=== PATIENT | male | born 1940 | race Caucasian/White ===

== ENCOUNTER → 2016-05-25 | Outpatient (CLI) | payer MEDICARE ==
[~2016-05-25] MED LIST: ATOR1TAB21 PO; CARV6.25 PO; CIPR500T19 PO; CITA20TA4 PO; LISI30TA4 PO; MAGN400T5 PO; PERC5TAB6 PO; PLAV75TA38 PO; PLET50TA3 PO
== END ==
LOC: M SMT 15:51
PROVIDERS: ATTEND Urology
DX: C61 Malignant neoplasm of prostate (principal)

== ENCOUNTER → 2016-09-19 | Outpatient (CLI) | payer MEDICARE ==
[~2016-09-19] MED LIST changes: +PERC5TAB12 PO; -PERC5TAB6 PO; +PLAV1TAB2 PO; -PLAV75TA38 PO
[2016-09-19 13:48] LABS: BASO % 0.5 % (0.0-1.0); EOS # 0.2 K/mm3 (0.0-0.50); EOS % 2.5 % (0.0-3.0); LARGE UNSTAINED CELL # 0.2 K/mm3 (0.0-0.4); LARGE UNSTAINED CELL % 1.8 % (0.0-4.0); LYMPH # 2.7 K/mm3 (1.5-4.5); LYMPH % 28.1 % (24.0-44.0); MEAN CORPUSCULAR HEMOGLOBIN 32.4 pg (27.0-33.0); MEAN CORPUSCULAR HGB CONC 34.6 g/dl (32.0-36.5); MEAN CORPUSCULAR VOLUME 93.6 fl (80.0-96.0); MONO # 0.7 K/mm3 (0.0-0.8); MONO % 7.5 % (0.0-5.0); NEUTROPHILS # 5.3 K/mm3 (1.8-7.7); NEUTROPHILS % 59.6 % (36.0-66.0); PLATELET COUNT, AUTOMATED 217 k/mm3 (150-450); RED CELL DISTRIBUTION WIDTH 12.4 % (11.5-14.5); WHITE BLOOD COUNT 8.9 K/mm3 (4.0-10.0)
[2016-09-19 13:56] LABS: INR 0.92
[2016-09-19 14:06] LABS: CALCIUM LEVEL 9.6 MG/DL (8.8-10.2); CREATININE FOR GFR 1.4 MG/DL (0.70-1.30); GLOMERULAR FILTRATION RATE 52.5 (>42)
[2016-09-19 14:08] LABS: POTASSIUM SERUM 5.5 MEQ/L (3.5-5.1)
== END ==
LOC: M SMT 09:41
PROVIDERS: ATTEND Surgery Vascular Surgery
DX: Z01.818 Encounter for other preprocedural examination (principal); I70.213 Atherosclerosis of native arteries of extremities with intermittent claudication, bilateral legs; D69.8 Other specified hemorrhagic conditions

== ENCOUNTER → 2016-09-20 | Outpatient (CLI) | payer MEDICARE | LOC: M SMT 09:22 | PROVIDERS: ATTEND Surgery Vascular Surgery | DX: Z01.818 Encounter for other preprocedural examination (principal); D69.6 Thrombocytopenia, unspecified; E87.5 Hyperkalemia ==

== ENCOUNTER → 2016-11-30 | Outpatient (CLI) | payer MEDICARE ==
[2016-11-30 13:49] LABS: ALBUMIN/GLOBULIN RATIO 1.14 (1.00-1.93); BILIRUBIN,TOTAL 0.6 MG/DL (0.2-1.0); CALCIUM LEVEL 9.3 MG/DL (8.8-10.2); CREATININE FOR GFR 1.36 MG/DL (0.70-1.30); GLOMERULAR FILTRATION RATE 54.2 (>42); MAGNESIUM LEVEL 2.1 MG/DL (1.8-2.4); POTASSIUM SERUM 4.6 MEQ/L (3.5-5.1); TOTAL PROTEIN 7.5 GM/DL (6.4-8.2)
== END ==
LOC: M SMT 08:00
PROVIDERS: ATTEND Internal Medicine Cardiovascular Disease
DX: I50.42 Chronic combined systolic (congestive) and diastolic (congestive) heart failure (principal); I42.0 Dilated cardiomyopathy

== ENCOUNTER → 2016-12-22 | Outpatient (CLI) | payer MEDICARE | LOC: M SMT 10:56 | PROVIDERS: ATTEND Urology | DX: C61 Malignant neoplasm of prostate (principal) ==

== ENCOUNTER → 2017-06-01 | Outpatient (CLI) | payer MEDICARE ==
[2017-06-01 13:05] LABS: HEMATOCRIT 36.8 % (42.0-52.0); HEMOGLOBIN 12.2 g/dl (13.5-17.5); MEAN CORPUSCULAR HEMOGLOBIN 30.7 pg (27.0-33.0); MEAN CORPUSCULAR HGB CONC 33.2 g/dl (32.0-36.5); MEAN CORPUSCULAR VOLUME 92.5 fl (80.0-96.0); PLATELET COUNT, AUTOMATED 205 10^3/uL (150-450); RED BLOOD COUNT 3.98 10^6/uL (4.30-6.10); RED CELL DISTRIBUTION WIDTH 12.5 % (11.5-14.5); WHITE BLOOD COUNT 9.1 10^3/uL (4.0-10.0)
[2017-06-01 13:16] LABS: INR 1.01; PROTHROMBIN TIME 13.4 SECONDS (12.4-14.5)
[2017-06-01 14:04] LABS: ALBUMIN 3.9 GM/DL (3.2-5.2); ALBUMIN/GLOBULIN RATIO 1.18 (1.00-1.93); ALKALINE PHOSPHATASE 54 U/L (45-117); ALT/SGPT 21 U/L (12-78); ANION GAP 9 MEQ/L (8-16); AST/SGOT 15 U/L (7-37); BILIRUBIN,TOTAL 0.6 MG/DL (0.2-1.0); BLOOD UREA NITROGEN 24 MG/DL (7-18); CALCIUM LEVEL 9.4 MG/DL (8.8-10.2); CARBON DIOXIDE LEVEL 30 MEQ/L (21-32); CHLORIDE LEVEL 102 MEQ/L (98-107); CREATININE FOR GFR 1.54 MG/DL (0.70-1.30); GLOMERULAR FILTRATION RATE 46.9 (>42); GLUCOSE, FASTING 131 MG/DL (70-100); POTASSIUM SERUM 4.4 MEQ/L (3.5-5.1); SODIUM LEVEL 141 MEQ/L (136-145); TOTAL PROTEIN 7.2 GM/DL (6.4-8.2)
== END ==
LOC: M SMT 11:31
DX: K63.5 Polyp of colon (principal)
CPT/HCPCS: 80053

== ENCOUNTER → 2017-06-22 | Outpatient (CLI) | payer MEDICARE ==
[2017-06-22 14:06] LABS: PROSTATIC SPECIFIC AG MONITOR < 0.01 NG/ML (< 4.0)
== END ==
LOC: M SMT 09:31
DX: Z85.46 Personal history of malignant neoplasm of prostate (principal)
CPT/HCPCS: 84153

== ENCOUNTER → 2017-06-26 | Outpatient (CLI) | payer MEDICARE ==
[2017-06-26 17:16] LABS: ALBUMIN 3.7 GM/DL (3.2-5.2); ALKALINE PHOSPHATASE 63 U/L (45-117); ALT/SGPT 33 U/L (12-78); ANION GAP 4 MEQ/L (8-16); AST/SGOT 16 U/L (7-37); BILIRUBIN,TOTAL 0.4 MG/DL (0.2-1.0); BLOOD UREA NITROGEN 29 MG/DL (7-18); CALCIUM LEVEL 9.3 MG/DL (8.8-10.2); CARBON DIOXIDE LEVEL 27 MEQ/L (21-32); CHLORIDE LEVEL 110 MEQ/L (98-107); CREATININE FOR GFR 1.52 MG/DL (0.70-1.30); GLOMERULAR FILTRATION RATE 47.6 (>42); GLUCOSE, FASTING 111 MG/DL (70-100); MAGNESIUM LEVEL 2.1 MG/DL (1.8-2.4); NT-PRO BNP 158 PG/ML (<450); POTASSIUM SERUM 4.7 MEQ/L (3.5-5.1); SODIUM LEVEL 141 MEQ/L (136-145); TOTAL PROTEIN 7.4 GM/DL (6.4-8.2)
== END ==
LOC: M SMT 15:24
DX: I50.42 Chronic combined systolic (congestive) and diastolic (congestive) heart failure (principal); I25.10 Atherosclerotic heart disease of native coronary artery without angina pectoris
CPT/HCPCS: 83735

== ENCOUNTER 2017-07-24 11:40 | Inpatient (IN) | payer MEDICARE ==
[2017-07-24] MEDS ORDERED: ONDANSETRON 4MG/2ML VIAL (J2405) IV (12:30)
[2017-07-24] MEDS: NS 1,000 ML IV (12:41)
[2017-07-24 13:01] LABS: BASO % 0.4 % (0.0-1.0); EOS # 0.2 10^3/uL (0.0-0.50); EOS % 3.2 % (0.0-3.0); HEMATOCRIT 31.6 % (42.0-52.0); HEMOGLOBIN 10.6 g/dl (13.5-17.5); IMMATURE GRANULOCYTE % 0.5 % (0-3.0); LYMPH # 2.7 10^3/uL (1.5-4.5); LYMPH % 36.6 % (24.0-44.0); MEAN CORPUSCULAR HEMOGLOBIN 30.9 pg (27.0-33.0); MEAN CORPUSCULAR HGB CONC 33.5 g/dl (32.0-36.5); MEAN CORPUSCULAR VOLUME 92.1 fl (80.0-96.0); MONO # 0.7 10^3/uL (0.0-0.8); MONO % 9.3 % (0.0-5.0); NEUTROPHILS # 3.6 10^3/uL (1.8-7.7); PLATELET COUNT, AUTOMATED 233 10^3/uL (150-450); RED BLOOD COUNT 3.43 10^6/uL (4.30-6.10); RED CELL DISTRIBUTION WIDTH 12.8 % (11.5-14.5); WHITE BLOOD COUNT 7.3 10^3/uL (4.0-10.0)
[2017-07-24 13:19] LABS: INR 1.03; PARTIAL THROMBOPLASTIN TIME 33.1 SECONDS (26.8-37.9); PROTHROMBIN TIME 13.7 SECONDS (12.4-14.5)
[2017-07-24 13:32] LABS: ALBUMIN 3.5 GM/DL (3.2-5.2); ALBUMIN/GLOBULIN RATIO 1.09 (1.00-1.93); ALKALINE PHOSPHATASE 55 U/L (45-117); ALT/SGPT 48 U/L (12-78); ANION GAP 7 MEQ/L (8-16); AST/SGOT 33 U/L (7-37); BILIRUBIN,TOTAL 0.4 MG/DL (0.2-1.0); BLOOD UREA NITROGEN 14 MG/DL (7-18); CALCIUM LEVEL 9.1 MG/DL (8.8-10.2); CARBON DIOXIDE LEVEL 30 MEQ/L (21-32); CHLORIDE LEVEL 104 MEQ/L (98-107); CREATININE FOR GFR 1.16 MG/DL (0.70-1.30); GLOMERULAR FILTRATION RATE > 60.0 (>42); GLUCOSE, FASTING 99 MG/DL (70-100); POTASSIUM SERUM 4.2 MEQ/L (3.5-5.1); SODIUM LEVEL 141 MEQ/L (136-145); TOTAL PROTEIN 6.7 GM/DL (6.4-8.2)
[2017-07-24] MEDS ORDERED: ISOVUE-300 61% 50ML VIAL (Q9967) As Ordered (14:40)
[2017-07-24] MEDS ORDERED: LIDOCAINE 2% MDV 20 ML VIAL As Ordered (14:40)
[2017-07-25 07:43] LABS: HEMATOCRIT 33.7 % (42.0-52.0); HEMOGLOBIN 11.2 g/dl (13.5-17.5); MEAN CORPUSCULAR HEMOGLOBIN 30.9 pg (27.0-33.0); MEAN CORPUSCULAR HGB CONC 33.2 g/dl (32.0-36.5); MEAN CORPUSCULAR VOLUME 92.8 fl (80.0-96.0); PLATELET COUNT, AUTOMATED 243 10^3/uL (150-450); RED BLOOD COUNT 3.63 10^6/uL (4.30-6.10); RED CELL DISTRIBUTION WIDTH 13.1 % (11.5-14.5); WHITE BLOOD COUNT 7.8 10^3/uL (4.0-10.0)
[2017-07-25 08:04] LABS: ANION GAP 5 MEQ/L (8-16); BLOOD UREA NITROGEN 11 MG/DL (7-18); CALCIUM LEVEL 8.9 MG/DL (8.8-10.2); CARBON DIOXIDE LEVEL 29 MEQ/L (21-32); CHLORIDE LEVEL 105 MEQ/L (98-107); GLOMERULAR FILTRATION RATE > 60.0 (>42); GLUCOSE, FASTING 155 MG/DL (70-100); POTASSIUM SERUM 4.1 MEQ/L (3.5-5.1); SODIUM LEVEL 139 MEQ/L (136-145)
[2017-07-25] MEDS: OMEPRAZOLE 20 MG CAP PO (09:10)
[2017-07-25] MEDS: FUROSEMIDE 40 MG TAB PO (09:10)
[2017-07-25] MEDS: CitaloPRAM (CeleXA) 20 MG TAB PO (09:10)
[2017-07-25] MEDS: SUCRALFATE SUSP 1GM/10ML UD PO ×2 (09:10→20:27)
[2017-07-25] MEDS: CARVedilol 6.25 MG TAB PO ×2 (09:11→20:27)
[2017-07-25] MEDS: GLIMEPIRIDE 1 MG TABLET PO (14:23)
[2017-07-25] MEDS: ATORVASTATIN 20 MG TAB PO (20:27)
[2017-07-25] MEDS: ENOXAPARIN 40 MG/0.4 ML SYRINGE (J1650) SC (20:29)
[2017-07-26] MEDS: SUCRALFATE SUSP 1GM/10ML UD PO ×2 (10:52→20:45)
[2017-07-26] MEDS: OMEPRAZOLE 20 MG CAP PO (10:52)
[2017-07-26] MEDS: FUROSEMIDE 40 MG TAB PO ×2 (10:52→13:35)
[2017-07-26] MEDS: CitaloPRAM (CeleXA) 20 MG TAB PO (10:53)
[2017-07-26] MEDS: GLIMEPIRIDE 1 MG TABLET PO (11:02)
[2017-07-26] MEDS: CARVedilol 6.25 MG TAB PO ×2 (13:34→20:46)
[2017-07-26] MEDS: ENOXAPARIN 40 MG/0.4 ML SYRINGE (J1650) SC (20:46)
[2017-07-26] MEDS: ATORVASTATIN 20 MG TAB PO (20:46)
[2017-07-27] MEDS: SUCRALFATE SUSP 1GM/10ML UD PO ×2 (11:13→20:40)
[2017-07-27] MEDS: CARVedilol 6.25 MG TAB PO ×2 (11:14→20:40)
[2017-07-27] MEDS: OMEPRAZOLE 20 MG CAP PO (11:14)
[2017-07-27] MEDS: FUROSEMIDE 40 MG TAB PO (11:15)
[2017-07-27] MEDS: CitaloPRAM (CeleXA) 20 MG TAB PO (11:15)
[2017-07-27] MEDS: GLIMEPIRIDE 1 MG TABLET PO (11:18)
[2017-07-27] MEDS: ENOXAPARIN 40 MG/0.4 ML SYRINGE (J1650) SC (20:40)
[2017-07-27] MEDS: ATORVASTATIN 20 MG TAB PO (20:40)
[2017-07-28] MEDS: OMEPRAZOLE 20 MG CAP PO (09:49)
[2017-07-28] MEDS: CitaloPRAM (CeleXA) 20 MG TAB PO (09:49)
[2017-07-28] MEDS: GLIMEPIRIDE 1 MG TABLET PO (09:49)
[2017-07-28] MEDS: SUCRALFATE SUSP 1GM/10ML UD PO ×2 (09:49→20:35)
[2017-07-28] MEDS: FUROSEMIDE 40 MG TAB PO (09:49)
[2017-07-28] MEDS: CARVedilol 6.25 MG TAB PO ×2 (09:56→20:37)
[2017-07-28 20:29] LABS: MAGNESIUM LEVEL 2.2 MG/DL (1.8-2.4)
[2017-07-28 20:33] LABS: ANION GAP 6 MEQ/L (8-16); BLOOD UREA NITROGEN 16 MG/DL (7-18); CALCIUM LEVEL 8.8 MG/DL (8.8-10.2); CARBON DIOXIDE LEVEL 30 MEQ/L (21-32); CHLORIDE LEVEL 108 MEQ/L (98-107); CREATININE FOR GFR 1.35 MG/DL (0.70-1.30); GLOMERULAR FILTRATION RATE 54.6 (>42); GLUCOSE, FASTING 136 MG/DL (70-100); POTASSIUM SERUM 4.1 MEQ/L (3.5-5.1); SODIUM LEVEL 144 MEQ/L (136-145)
[2017-07-28] MEDS: ATORVASTATIN 20 MG TAB PO (20:35)
[2017-07-28] MEDS: APIXABAN 5 MG TAB (ELIQUIS) PO (21:44)
[2017-07-29] MEDS: SUCRALFATE SUSP 1GM/10ML UD PO (09:05)
[2017-07-29] MEDS: FUROSEMIDE 40 MG TAB PO (09:06)
[2017-07-29] MEDS: CARVedilol 6.25 MG TAB PO (09:06)
[2017-07-29] MEDS: GLIMEPIRIDE 1 MG TABLET PO (09:06)
[2017-07-29] MEDS: OMEPRAZOLE 20 MG CAP PO (09:06)
[2017-07-29] MEDS: APIXABAN 5 MG TAB (ELIQUIS) PO (09:07)
[2017-07-29] MEDS: CitaloPRAM (CeleXA) 20 MG TAB PO (09:07)
== END 2017-07-29 09:56 | disposition home or self-care (01) | DRG 356 ==
LOC: M ICU 11:40 → M MSPAV 21:16
PROC: 06H03DZ Insertion of Intraluminal Device into Inferior Vena Cava, Percutaneous Approach (ICD-10-PCS; principal; 2017-07-24)
DX: K92.1 Melena (principal); I26.99 Other pulmonary embolism without acute cor pulmonale; I50.22 Chronic systolic (congestive) heart failure; I82.449 Acute embolism and thrombosis of unspecified tibial vein; G47.33 Obstructive sleep apnea (adult) (pediatric); F03.90 Unspecified dementia, unspecified severity, without behavioral disturbance, psychotic disturbance, mood disturbance, and anxiety; E11.51 Type 2 diabetes mellitus with diabetic peripheral angiopathy without gangrene; I25.10 Atherosclerotic heart disease of native coronary artery without angina pectoris; R32 Unspecified urinary incontinence; I11.0 Hypertensive heart disease with heart failure; Z85.46 Personal history of malignant neoplasm of prostate; Z95.5 Presence of coronary angioplasty implant and graft; Z95.810 Presence of automatic (implantable) cardiac defibrillator; Z95.820 Peripheral vascular angioplasty status with implants and grafts; Z90.49 Acquired absence of other specified parts of digestive tract; Z87.891 Personal history of nicotine dependence; Z79.01 Long term (current) use of anticoagulants; Z79.899 Other long term (current) drug therapy

== ENCOUNTER → 2017-10-31 | Outpatient (REF) | payer MEDICARE ==
[2017-10-31 14:13] LABS: BASO % 0.4 % (0.0-1.0); EOS # 0.2 10^3/uL (0.0-0.50); EOS % 2.2 % (0.0-3.0); HEMATOCRIT 37.9 % (42.0-52.0); HEMOGLOBIN 11.9 g/dl (13.5-17.5); IMMATURE GRANULOCYTE % 0.3 % (0-3.0); LYMPH # 2.4 10^3/uL (1.5-4.5); LYMPH % 32.6 % (24.0-44.0); MEAN CORPUSCULAR HEMOGLOBIN 29.1 pg (27.0-33.0); MEAN CORPUSCULAR HGB CONC 31.4 g/dl (32.0-36.5); MEAN CORPUSCULAR VOLUME 92.7 fl (80.0-96.0); MONO # 0.6 10^3/uL (0.0-0.8); MONO % 8.5 % (0.0-5.0); NEUTROPHILS # 4.1 10^3/uL (1.8-7.7); PLATELET COUNT, AUTOMATED 173 10^3/uL (150-450); RED BLOOD COUNT 4.09 10^6/uL (4.30-6.10); RED CELL DISTRIBUTION WIDTH 13.4 % (11.5-14.5); WHITE BLOOD COUNT 7.4 10^3/uL (4.0-10.0)
[2017-10-31 14:47] LABS: ERYTHROCYTE SEDIMENTATION RATE 37 mm/hr (0-20)
[2017-10-31 14:50] LABS: ALBUMIN 3.9 GM/DL (3.2-5.2); ALKALINE PHOSPHATASE 62 U/L (45-117); ALT/SGPT 32 U/L (12-78); ANION GAP 7 MEQ/L (8-16); AST/SGOT 20 U/L (7-37); BILIRUBIN,TOTAL 0.6 MG/DL (0.2-1.0); BLOOD UREA NITROGEN 17 MG/DL (7-18); CARBON DIOXIDE LEVEL 29 MEQ/L (21-32); CHLORIDE LEVEL 104 MEQ/L (98-107); CREATININE FOR GFR 1.21 MG/DL (0.70-1.30); FOLATE 15.9 NG/ML; FREE T4 0.74 NG/DL (0.76-1.46); GLOMERULAR FILTRATION RATE > 60.0 (>42); GLUCOSE, FASTING 142 MG/DL (70-100); POTASSIUM SERUM 4.5 MEQ/L (3.5-5.1); RHEUMATOID FACTOR QUANT < 10.0 IU/ML (<15.0); SODIUM LEVEL 140 MEQ/L (136-145); TOTAL PROTEIN 7.8 GM/DL (6.4-8.2)
== END ==
LOC: M LABNEURO 13:05
DX: R41.0 Disorientation, unspecified (principal)
CPT/HCPCS: 82746

== ENCOUNTER → 2017-11-01 | Outpatient (REF) | payer MEDICARE ==
[2017-11-05 00:20] LABS: VITAMIN B6,PYRIDOXAL PHOSPHATE 4.3 ug/L (5.3-46.7)
== END ==
LOC: M LABNEURO 10:51
DX: R41.0 Disorientation, unspecified (principal)
CPT/HCPCS: 84207

== ENCOUNTER → 2017-11-17 | Outpatient (CLI) | payer MEDICARE | LOC: M RAD 15:27 | DX: G30.1 Alzheimer's disease with late onset (principal); F02.80 Dementia in other diseases classified elsewhere, unspecified severity, without behavioral disturbance, psychotic disturbance, mood disturbance, and anxiety; I67.82 Cerebral ischemia | CPT/HCPCS: 70450 ==

== ENCOUNTER → 2017-11-20 | Outpatient (CLI) | payer MEDICARE | LOC: M IRPRO 07:42 | DX: Z53.8 Procedure and treatment not carried out for other reasons (principal) ==

== ENCOUNTER → 2017-11-30 | Outpatient (CLI) | payer MEDICARE ==
[~2017-11-30] MED LIST changes: -ATOR1TAB21 PO; -CARV6.25 PO; -CIPR500T19 PO; -CITA20TA4 PO; +ISOVUE-300 61% 50ML VIAL (Q9967) As Ordered; +LIDOCAINE 2% MDV 20 ML VIAL As Ordered; -LISI30TA4 PO; -MAGN400T5 PO; +MIDAZOLAM INJ 2 MG/2 ML VIAL (J2250) As Ordered; -PERC5TAB12 PO; -PLAV1TAB2 PO; -PLET50TA3 PO; +fentaNYL 100 MCG/2 ML INJECTION (J3010) As Ordered
== END | disposition home or self-care (01) ==
LOC: M IRPRO 06:22
DX: I27.82 Chronic pulmonary embolism (principal); K92.2 Gastrointestinal hemorrhage, unspecified; I82.409 Acute embolism and thrombosis of unspecified deep veins of unspecified lower extremity
CPT/HCPCS: 37193

== ENCOUNTER → 2017-12-15 | Outpatient (CLI) | payer MEDICARE ==
[2017-12-15 14:13] LABS: HEMATOCRIT 37.3 % (42.0-52.0); HEMOGLOBIN 11.9 g/dl (13.5-17.5); MEAN CORPUSCULAR HEMOGLOBIN 29.3 pg (27.0-33.0); MEAN CORPUSCULAR HGB CONC 31.9 g/dl (32.0-36.5); MEAN CORPUSCULAR VOLUME 91.9 fl (80.0-96.0); PLATELET COUNT, AUTOMATED 183 10^3/uL (150-450); RED BLOOD COUNT 4.06 10^6/uL (4.30-6.10); RED CELL DISTRIBUTION WIDTH 14.5 % (11.5-14.5); WHITE BLOOD COUNT 7.5 10^3/uL (4.0-10.0)
[2017-12-15 14:17] LABS: APPEARANCE, URINE HAZY (CLEAR); BACTERIA, URINE AUTO NEGATIVE (NEGATIVE); BILIRUBIN, URINE AUTO NEGATIVE (NEGATIVE); BLOOD, URINE BLOOD NEGATIVE (NEGATIVE); CALCIUM OXALATE CRYSTALS SMALL; COLOR, URINE YELLOW (YELLOW); GLUCOSE, URINE (UA) AUTO NEGATIVE (NEGATIVE); KETONE, URINE AUTO NEGATIVE (NEGATIVE); LEUKOCYTE ESTERASE, URINE AUTO NEGATIVE (NEGATIVE); NITRITE, URINE AUTO NEGATIVE (NEGATIVE); PROTEIN, URINE AUTO NEGATIVE (NEGATIVE); RBC, URINE AUTO 1 /HPF (0-3); SPECIFIC GRAVITY URINE AUTO 1.025 (1.002-1.035); SQUAMOUS EPITHELIAL CELL UR AU 0 /HPF (0-6); UROBILINOGEN, URINE AUTO 0.2 mg/dL (0.0-2.0); WBC, URINE AUTO 1 /HPF (0-3)
[2017-12-15 15:39] LABS: CHOLESTEROL LEVEL 111 MG/DL (<200); CHOLESTEROL RISK RATIO 3.083 (<5); HDL CHOLESTEROL 36 MG/DL (>40); LDL CHOLESTEROL 42 MG/DL (<100); NON-HDL-C 75 MG/DL; PROSTATIC SPECIFIC AG MONITOR < 0.01 NG/ML (< 4.0); TRIGLYCERIDES LEVEL 167 MG/DL (<150)
[2017-12-15 15:43] LABS: ESTIMATED AVERAGE GLUCOSE 157 MG/DL (60-110); HEMOGLOBIN A1c 7.1 %
[2017-12-15 16:54] LABS: ALBUMIN 3.7 GM/DL (3.2-5.2); ALBUMIN/GLOBULIN RATIO 1.06 (1.00-1.93); ALKALINE PHOSPHATASE 66 U/L (45-117); ALT/SGPT 37 U/L (12-78); ANION GAP 7 MEQ/L (8-16); AST/SGOT 21 U/L (7-37); BILIRUBIN,TOTAL 0.5 MG/DL (0.2-1.0); BLOOD UREA NITROGEN 16 MG/DL (7-18); CALCIUM LEVEL 9.1 MG/DL (8.8-10.2); CARBON DIOXIDE LEVEL 29 MEQ/L (21-32); CHLORIDE LEVEL 107 MEQ/L (98-107); CREATININE FOR GFR 1.35 MG/DL (0.70-1.30); GLOMERULAR FILTRATION RATE 54.6 (>42); GLUCOSE, FASTING 154 MG/DL (70-100); MAGNESIUM LEVEL 2.1 MG/DL (1.8-2.4); POTASSIUM SERUM 4.4 MEQ/L (3.5-5.1); SODIUM LEVEL 143 MEQ/L (136-145); TOTAL PROTEIN 7.2 GM/DL (6.4-8.2)
== END ==
LOC: M SMT 10:05
DX: I10 Essential (primary) hypertension (principal); E78.5 Hyperlipidemia, unspecified; E11.9 Type 2 diabetes mellitus without complications; I34.0 Nonrheumatic mitral (valve) insufficiency; K29.61 Other gastritis with bleeding
CPT/HCPCS: 83735

== ENCOUNTER → 2018-06-22 | Outpatient (CLI) | payer MEDICARE ==
[~2018-06-22] MED LIST changes: +ATOR1TAB21 PO; +ATOR40TA75 PO; +CARV6.25 PO; +CIPR500T19 PO; +CITA20TA6 PO; +CITA20TA7 PO; +ELIQ5TAB PO; +GLIM1TAB PO; -ISOVUE-300 61% 50ML VIAL (Q9967) As Ordered; +LASI40TA9 PO; -LIDOCAINE 2% MDV 20 ML VIAL As Ordered; +LISI-672 PO; +LOVE1INJ SC; +MAALSUS2 PO; +MAGN400T5 PO; -MIDAZOLAM INJ 2 MG/2 ML VIAL (J2250) As Ordered; +OMEP40CA2 PO; +PERC5TAB12 PO; +PLAV1TAB2 PO; +PLET50TA3 PO; +SUCR10SS PO; -fentaNYL 100 MCG/2 ML INJECTION (J3010) As Ordered
== END ==
LOC: M SMT 08:36
PROVIDERS: ATTEND Nurse Practitioner Women's Health
DX: Z85.46 Personal history of malignant neoplasm of prostate (principal)

== ENCOUNTER → 2020-04-20 | Outpatient (CLI) | payer MEDICARE ==
[~2020-04-20] MED LIST changes: -GLIM1TAB PO; +GLIM1TAB4 PO; -LISI-672 PO; +LISI30TA4 PO; -OMEP40CA2 PO; +OMEP40CA97 PO; -SUCR10SS PO; +SUCR1ORA2 PO
[2020-04-20 13:53] LABS: HEMATOCRIT 39.8 % (42.0-52.0); HEMOGLOBIN 12.9 g/dl (13.5-17.5); MEAN CORPUSCULAR HEMOGLOBIN 31.1 pg (27.0-33.0); MEAN CORPUSCULAR HGB CONC 32.4 g/dl (32.0-36.5); MEAN CORPUSCULAR VOLUME 95.9 fl (80.0-96.0); PLATELET COUNT, AUTOMATED 164 10^3/uL (150-450); RED BLOOD COUNT 4.15 10^6/uL (4.30-6.10); WHITE BLOOD COUNT 7.8 10^3/uL (4.0-10.0)
[2020-04-20 14:28] LABS: ALBUMIN 3.8 GM/DL (3.2-5.2); CALCIUM LEVEL 8.8 MG/DL (8.8-10.2); CREATININE FOR GFR 1.29 MG/DL (0.70-1.30); GLOMERULAR FILTRATION RATE 57.2 (>42); POTASSIUM SERUM 3.7 MEQ/L (3.5-5.1); TOTAL PROTEIN 7.2 GM/DL (6.4-8.2)
== END ==
LOC: M PLALAB 12:04
PROVIDERS: ATTEND Internal Medicine Cardiovascular Disease
DX: E78.2 Mixed hyperlipidemia (principal); I47.2 Ventricular tachycardia

== ENCOUNTER → 2020-07-10 | Outpatient (REF) | payer MEDICARE | LOC: M PLALAB 16:45 | PROVIDERS: ATTEND Physician Assistant | DX: C61 Malignant neoplasm of prostate (principal) ==

== ENCOUNTER 2020-08-25 12:22 | Inpatient (IN) | payer MEDICARE ==
[~2020-08-25] VITALS: Ht 170.2 cm; Wt 96.7 kg
[~2020-08-25 12:22] MED LIST changes: +OMEP40CA4 PO; -OMEP40CA97 PO
--- NOTE | 2020-08-25 15:46 | REP ---
INDICATION: ams. COMPARISON: Comparison chest x-ray December 22, 2015. TECHNIQUE: Portable upright AP chest radiograph. FINDINGS: A bipolar pacemaker remains in the right heart view of the left side. Heart size is borderline unchanged. Lungs are well inflated and clear. Right hemidiaphragm is somewhat elevated. Pleural angles appear sharp. Pulmonary vasculature is not increased. No infiltrate seen.. IMPRESSION: Pacemaker in place. Mildly prominent heart. Otherwise no active disease.. <Electronically signed by Garland Carcamo > 08/25/20 [id number]
[2020-08-25] MEDS ORDERED: VENL37.598 PO (15:56)
[2020-08-25] MEDS ORDERED: FURO40TA2 PO (15:56)
[2020-08-25] MEDS ORDERED: DONETAB6 PO (15:56)
[2020-08-25] MEDS ORDERED: QUET25TA3 PO (15:56)
[2020-08-25] MEDS ORDERED: MEMA10TA19 PO (15:56)
[2020-08-25 16:16] LABS: BASO % 0.3 % (0.0-1.0); EOS # 0.1 10^3/uL (0.0-0.5); EOS % 1.2 % (0.0-3.0); HEMATOCRIT 42.5 % (42.0-52.0); HEMOGLOBIN 14.2 g/dl (13.5-17.5); LYMPH # 2.9 10^3/uL (1.5-5.0); LYMPH % 29.4 % (24.0-44.0); MEAN CORPUSCULAR HEMOGLOBIN 32.1 pg (27.0-33.0); MEAN CORPUSCULAR HGB CONC 33.4 g/dl (32.0-36.5); MEAN CORPUSCULAR VOLUME 96.2 fl (80.0-96.0); MONO # 0.8 10^3/uL (0.0-0.8); MONO % 7.7 % (2.0-8.0); NEUTROPHILS % 61.1 % (36.0-66.0); PLATELET COUNT, AUTOMATED 165 10^3/uL (150-450); RED BLOOD COUNT 4.42 10^6/uL (4.30-6.10); WHITE BLOOD COUNT 9.9 10^3/uL (4.0-10.0)
[2020-08-25 16:56] LABS: ALBUMIN 4.2 GM/DL (3.2-5.2); ALT/SGPT 42 U/L (12-78); BILIRUBIN,DIRECT 0.4 MG/DL (0.0-0.2); BILIRUBIN,TOTAL 1.8 MG/DL (0.2-1.0); BLOOD UREA NITROGEN 14 MG/DL (7-18); CALCIUM LEVEL 9.4 MG/DL (8.8-10.2); CARBON DIOXIDE LEVEL 30 MEQ/L (21-32); CHLORIDE LEVEL 106 MEQ/L (98-107); CK-MB VALUE MASS 1.2 NG/ML (<3.6); CPK CREATINE PHOSPHOKINASE 110 U/L (39-308); CREATININE FOR GFR 1.15 MG/DL (0.70-1.30); GLOMERULAR FILTRATION RATE > 60.0 (>35); GLUCOSE, FASTING 133 MG/DL (70-100); MB/CK RELATIVE INDEX 1.09 (< OR =4); POTASSIUM SERUM 3.8 MEQ/L (3.5-5.1); SODIUM LEVEL 142 MEQ/L (136-145); THYROID STIMULATING HORMONE 0.616 uIU/ML (0.358-3.740); TROPONIN I < 0.02 NG/ML (< 0.10)
--- NOTE | 2020-08-25 17:22 | ECGEPIP ---
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
[2020-08-25] MEDS ORDERED: CARV12.5 PO (17:37)
[2020-08-25] MEDS ORDERED: OCUVTAB PO (17:37)
[2020-08-25] MEDS ORDERED: DONE10TA90 PO (17:37)
--- NOTE | 2020-08-25 17:58 | REPVR ---
PROCEDURE INFORMATION: Exam: CT Head Without Contrast Exam date and time: 08/25/2020 5:20 PM Age: 80 years old Clinical indication: Altered mental status/memory loss; Additional info: AMS TECHNIQUE: Imaging protocol: Computed tomography of the head without contrast. Radiation optimization: All CT scans at this facility use at least one of these dose optimization techniques: automated exposure control; mA and/or kV adjustment per patient size (includes targeted exams where dose is matched to clinical indication); or iterative reconstruction. COMPARISON: CT Head without contrast 11/17/2017 3:37 PM FINDINGS: Brain: There is no acute cortical infarction, intracranial hemorrhage or mass.There is moderate diffuse heterogeneity of the white matter, most consistent with microangiopathy. Cerebral ventricles: The ventricles appear enlarged, but not out of proportion to the degree of parenchymal volume loss. Paranasal sinuses: There is no significant mucoperiosteal thickening or air-fluid levels in the visualized portion of the paranasal sinuses. Mastoid air cells: The middle ear cavities and mastoid air cells are clear. Vasculature: Atherosclerosis. Bones/joints: Unremarkable. No acute fracture. Soft tissues: Unremarkable. IMPRESSION: No acute intracranial findings. Electronically signed by: Lala Glaser On 08/25/2020 17:58:01 PM
[2020-08-25] MEDS ORDERED: CARVedilol 12.5 MG TAB PO ONE (18:10)
[2020-08-25] MEDS ORDERED: FUROSEMIDE 40 MG TAB PO ONE (18:10)
[2020-08-25] MEDS ORDERED: ACETAMINOPHEN TAB 650MG DOSE (2X325MG) PO PRN (18:50)
[2020-08-25] MEDS ORDERED: MAALOX 30 ML SUSP *UDC PO PRN (18:50)
[2020-08-25] MEDS ORDERED: hydrALAZINE 20MG/ML 1ML VIAL (J0360 PER 20MG) IV PRN (18:50)
[2020-08-25] MEDS ORDERED: GLUCAGON INJ 1MG VIAL SC PRN (18:50)
[2020-08-25] MEDS ORDERED: DEXTROSE 50% 50 ML SYRINGE IV PRN (18:50)
[2020-08-25] MEDS ORDERED: GLUCOSE 4GM CHEW TABLET PO PRN (18:50)
[2020-08-25] MEDS ORDERED: MOM 30ML SUSPENSION UDC PO PRN (18:50)
[2020-08-25 18:58] LABS: RSV AMPLIFICATION NEGATIVE (NEGATIVE)
--- NOTE | 2020-08-25 19:09 | HPEPDOC ---
[facility] Medical History & Physical Date of Admission Aug 25, 2020 Date of Service: Aug 25, 2020 Primary Care Physician: Paramjit Attending Physician: ADDI WITT MD History and Physical CHIEF COMPLAINT: Altered mental status HISTORY OF PRESENT ILLNESS: . Mr. Ricks is an 80-year-old male with a history of dementia who was brought to the ER by his with complaints of 5 days of worsening confusion. According to the ER report, the patient has been much more confused than his baseline. At the time of my evaluation, the patient is oriented to person and place. He cannot tell me the year or even why he is in the ER. Details of history are obtained from a thorough review of the medical record and from his by phone.. She tells me that the patient is normally confused. He is agitated at home and thinks that she is yelling at him or doing mean things to him. He does not believe that their home is where he lives. She has to limit their time away from home because the patient is often inappropriate in public. He does not seem to understand personal space and will often touch strangers. Over the last 5 days his normal symptoms have worsened. She has not been able to redirect him and he has been verbally abusive. He has not driven in over 3 years, but decided to take the car out for a ride today. It was at that point that she called the police and they brought him home. She said he was very polite to the police and has been cooperative at the hospital, but that this is not the way he is at home. She called their primary care provider, Dr. Worthy, who recommended that the patient be brought to [facility] for a psychiatric evaluation. The patient and his deny any fever, chills, nausea, vomiting or diarrhea. CT scan of the head was negative for any acute pathology. Chest x-ray showed some enlargement of the heart and confirmed pacemaker placement. Labs were unremarkable except for elevation of bilirubin at 1.8. There is no documented history of any type of liver disease. The rest of his LFTs are within normal limits. Patient's states that he was "a very bad alcoholic" and quit drinki ng when he was about 45 years old. Patient is a former smoker. He has a history of hypertension and blood pressure is elevated at 192/83. Pulse is 63. He is satting 97% on room air and is afebrile. PAST MEDICAL HISTORY: 1. Coronary artery disease. 2. Diabetes , type II [id number] 3. Prostate cancer. 4. Gastroesophageal reflux disease. 5. DVT 6. Bilateral pulmonary emboli. 7. GI bleed. 8. Peripheral vascular disease. 9. Congestive heart failure, systolic with ejection fraction 40-45%. 10. Obstructive sleep apnea, noncompliant with CPAP 11. Urinary incontinence. 12. Hyperlipidemia. 13. Hypertension PAST SURGICAL HISTORY: 1. Robot-assisted radical prostatectomy. 2. Coronary artery angioplasty and stenting. 3. Bilateral lower extremity angioplasty with stents. 4. Right hemicolectomy. 5. Cholecystectomy. 6. Bilateral cataract removal. 7. IVC filter placement SOCIAL HISTORY: Tobacco use: Former ETOH: Former Illicit drug use: Denies Patient lives with: Lives with his FAMILY HISTORY: Patient's father at 64 with a history of coronary artery disease. His mother was 53 and had a history of COPD. REVIEW OF SYSTEMS: Complete 10 point review systems is negative except as noted above PHYSICAL EXAMINATION: Patient is seen in the ER, lying on the stretcher.. He is alert and oriented to person and place but cannot tell me why he is here, the date or time. HEENT is WNL. Neck is supple. Lungs with expiratory wheeze that clears with cough. Heart regular rate and rhythm without murmur. Abdomen is soft, non-tender to palpation with bowel sounds positive. Extremities with good ROM and strength equal bilaterally. No lower extremity edema. Pedal pulses are positive. Skin is warm and dry with no obvious rash or lesion. Neuro: As described. Psych: He is very pleasant and attempts to be cooperative ASSESSMENT AND PLAN: 1. Altered mental status, etiology unclear, possibly secondary to worsening miladis ntia. Patient follows with Neurology. Would benefit from a consult with neurology and psychiatry in the morning. In the meantime, we'll ask case management to evaluate for possible placement versus increased assistance at home. Continue current medications including Seroquel, Effexor, Namenda and A ricept. 2. Hypertension with urgency. Continue home carvedilol and will add hydralazine for use as needed. Monitor with routine vital signs and adjust medications as needed based on trends. 3. Diabetes type 2, [id number]. Continue home glipizide. Monitor blood glucose before meals and at bedtime and add sliding scale for use as needed. Consistent carbohydrate diet. Check HbA1c in the morning. 4. Coronary artery disease. Continue statin and beta galina. Patient is not on daily aspirin. 5. Congestive heart failure, systolic, with no acute exacerbation. Continue home Lasix. Monitor closely to avoid fluid overload. 6. Elevated bilirubin, etiology unclear. Recheck labs in the morning. Will also check ammonia level for completeness sake. 7. DVT prophylaxis. Add Lovenox. CODE STATUS: CODE STATUS was discussed with the patient's who acts as his surrogate as he is unable to make his decisions. She desires that he be considered DNR. Patient is considered high risk of further deterioration including possible injury to self. He is admitted for close observation and further evaluation and expected to remain at least one midnight. Vital Signs Vital Signs Date Time Temp Pulse Resp B/P (MAP) Pulse Ox O2 Delivery O2 Flow Rate FiO2 08/25/20 18:35 72 186/107 08/25/20 17:45 17 97 Room Air 08/25/20 16:38 98.2 Laboratory Data Labs 24H Laboratory Tests 2 08/25/20 15:38: Immature Granulocyte % (Auto) 0.3, Neutrophils (%) (Auto) 61.1, Lymphocytes (%) (Auto) 29.4, Monocytes (%) (Auto) 7.7, Eosinophils (%) (Auto) 1.2, Basophils (%) (Auto) 0.3, Neutrophils # (Auto) 6.0, Lymphocytes # (Auto) 2.9, Monocytes # (Auto) 0.8, Eosinophils # (Auto) 0.1, Basophils # (Auto) 0.0, Nucleated Red Blood Cells % (auto) 0.0, Urine Color RIC, Urine Appearance HAZY, Urine pH 5.0, Urine Specific [place] 1.028, Urine Protein 1+H, Urine Glucose (UA) NEGATIVE, Urine Ketones NEGATIVE, Urine Blood NEGATIVE, Urine Nitrite NEGATIVE, Urine Bilirubin NEGATIVE, Urine Urobilinogen 0.2, Urine Leukocyte Esterase NEGATIVE, Urine WBC (Auto) 1, Urine RBC (Auto) 1, Urine Hyaline Casts (Auto) 0, Urine Bacteria (Auto) NEGATIVE, Urine Squamous Epithelial Cells 0, Urine Mucus (Auto) SMALL, Urine Sperm (Auto) , Anion Gap 6L, Glomerular Filtration Rate > 60.0, Calcium Level 9.4, Total Bilirubin 1.8H, Direct Bilirubin 0.4H, Aspartate Amino Transf (AST/SGOT) 36, Alanine Aminotransferase (ALT/SGPT) 42, Alkaline Phosphatase 62, Total Creatine Kinase 110, Creatine Kinase MB 1.2, Creatine Kinase MB Relative Index 1.09, Troponin I < 0.02, Total Protein 8.0, Albumin 4.2, Albumin/Globulin Ratio 1.1, Thyroid Stimulating Hormone (TSH) 0.616 08/25/20 15:50: Bedside Glucose (Misc Panel) 144H 08/25/20 17:45: CBC/BMP Laboratory Tests 08/25/20 15:38 Home Medications Scheduled Atorvastatin Calcium (Atorvastatin Calcium) 40 Mg Tab, 40 MG PO QHS Carvedilol (Carvedilol) 12.5 Mg Tablet, 12.5 MG PO BID Donepezil HCl (Donepezil HCl) 10 Mg Tablet, 10 MG PO QHS Furosemide (Furosemide) 40 Mg Tablet, 40 MG PO DAILY Glimepiride (Glimepiride) 1 Mg Tab, 1 MG PO DAILY Memantine HCl (Memantine HCl) 10 Mg Tablet, 10 MG PO BID Quetiapine Fumarate (Quetiapine Fumarate) 25 Mg Tablet, 75 MG PO BID Venlafaxine HCl (Venlafaxine HCl ER) 37.5 Mg Cap.er.24h, 37.5 MG PO DAILY Vits A,C,E/Lutein/Minerals (Ocuvite with Lutein Tablet) 1 Each Tablet, 1 TAB PO DAILY Allergies Coded Allergies: No Known Allergies (Verified , 08/19/02) A-FIB/CHADSVASC A-FIB History Current/History of A-Fib/PAF?: No APURVA CERVANTES Aug 25, 2020 19:09
[2020-08-25 20:44] LABS: MAGNESIUM LEVEL 2.4 MG/DL (1.8-2.4)
[2020-08-25] MEDS: HumaLOG INSULIN (NovoLOG) PER UNIT SC SCH (21:00)
--- NOTE | 2020-08-26 00:34 | IPNPDOC ---
Text Note Date of Service The patient was seen on 08/26/20. NOTE #Sustained V. tach Per discussion with the nursing staff the patient had a 31-second run of V. tach; we were unable to interrogate his ICD/pacemaker. Based on consultation notes from 2018 the patient has HFrEF (40%) Plan: Check magnesium / Amiodarone 150mg over 10 min / we will ask the daytime team to consult Cardiology and or request records from 's office prior to ordering an Echo VS,Walie, I+O VS, Walie, I+O Laboratory Tests 08/25/20 15:38 Vital Signs Date Time Temp Pulse Resp B/P (MAP) Pulse Ox O2 Delivery O2 Flow Rate FiO2 08/25/20 18:35 72 186/107 08/25/20 17:45 17 97 Room Air 08/25/20 16:38 98.2 ADDI WITT MD Aug 26, 2020 00:34
[2020-08-26] MEDS: QUEtiapine FUMARATE 25 MG TAB PO SCH ×2 (00:52→09:12)
[2020-08-26] MEDS: ATORVASTATIN 20 MG TAB PO SCH ×2 (00:52→21:57)
[2020-08-26] MEDS: CARVedilol 12.5 MG TAB PO SCH ×3 (00:53→21:57)
[2020-08-26] MEDS ORDERED: AMIODARONE HCL 150 MG in IV 1 EA IV SCH (01:00)
[2020-08-26] MEDS: MEMANTINE 5MG TABLET (NAMENDA) PO SCH ×3 (01:26→21:58)
[2020-08-26] MEDS: DONEPEZIL 5 MG TAB PO SCH ×2 (01:27→21:57)
[2020-08-26 06:26] LABS: HEMATOCRIT 39.8 % (42.0-52.0); HEMOGLOBIN 13.2 g/dl (13.5-17.5); MEAN CORPUSCULAR HEMOGLOBIN 31.5 pg (27.0-33.0); MEAN CORPUSCULAR HGB CONC 33.2 g/dl (32.0-36.5); PLATELET COUNT, AUTOMATED 138 10^3/uL (150-450); RED BLOOD COUNT 4.19 10^6/uL (4.30-6.10); WHITE BLOOD COUNT 10.5 10^3/uL (4.0-10.0)
[2020-08-26 06:48] VITALS: BP 149/92
[2020-08-26 07:05] LABS: ALBUMIN 3.9 GM/DL (3.2-5.2); BILIRUBIN,TOTAL 1.7 MG/DL (0.2-1.0); CALCIUM LEVEL 9.1 MG/DL (8.8-10.2); CREATININE FOR GFR 1.28 MG/DL (0.70-1.30); GLOMERULAR FILTRATION RATE 57.6 (>35); MAGNESIUM LEVEL 2.2 MG/DL (1.8-2.4); POTASSIUM SERUM 3.5 MEQ/L (3.5-5.1); TOTAL PROTEIN 7.1 GM/DL (6.4-8.2)
[2020-08-26] MEDS ORDERED: GLIMEPIRIDE 1 MG TABLET PO SCH (08:00)
[2020-08-26] MEDS: ENOXAPARIN 40MG/0.4ML SYRINGE (J1650 PER 10MG) SC SCH (09:10)
[2020-08-26] MEDS: HumaLOG INSULIN (NovoLOG) PER UNIT SC SCH ×4 (09:10→21:00)
[2020-08-26] MEDS: FUROSEMIDE 40 MG TAB PO SCH (09:12)
[2020-08-26] MEDS: VENLAFAXINE **XR** 37.5 MG CAPSULE PO SCH (09:12)
--- NOTE | 2020-08-26 12:33 | IPNPDOC ---
Text Note Date of Service The patient was seen on 08/26/20. NOTE Subjective: Patient is an 80-year-old male with a PMHx of Dementia, CAD, Systolic CHF (EF: 45%), HTN, PVD, FATUMA on CPAP, Hx of Bilateral PE, NIDDM2, DLP, Prostate CA, Hx of GI bleed, GERD who is brought to the ER for a 5 day history of worsening confusion. Patient is oriented to person and place but not time. Patient appears to be having confusion at home. Has started driving after not driving for 3 years. Was brought back home by police was cooperative with them and with hospital staff, however, family reports that this is not helping to his home. Patient was seen and examined at the bedside. Patient denies any chest pain, shortness breath, palpitations, nausea, vomiting, abdominal pain or diarrhea. He is oriented to person and place but not to time. Objective: Vitals (See below) General: Lying in bed, no acute distress, comfortable, AAOx2 (not to time) HEENT: NC, AT CVS: RRR, +S1S2 Lungs: Fair air entry b/l, -w/r/r Abdomen: Soft, ND, NT Extremities: - Edema, - Calf tenderness Imaging: CXR 08/25: Pacemaker in place. Mildly prominent heart. Otherwise no active disease.. CT head 08/25: No acute intracranial findings. Assessment and plan: Confusion - likely 2/2 progression of dementia - Hemodynamically stable and afebrile - UA without any signs of infection - Imaging noted above - Patient may require placement to long-term care facility where he can receive a help/care that he needs - Patient follows with neurology as an outpatient - c/w Quetiapine, Venlafaxine, Memantine, Donepezil Reported V. tach - Blood pressure / home medications resumed - EKG reviewed - currently ventricularly paced - Electrolytes noted - s/p Amiodarone 1 dose - Will start telemetry and monitor for 24-48 hours - Follows with Dr. Golden (Cardiology) as an outpatient; will have outpatient follow up HTN - BP well controlled - c/w Carvedilol and Furosemide NIDDM2 - Will DC Glimepiride - c/w ISS CAD - c/w Atorvastatin and Carvedilol Chronic Systolic CHF - No signs of fluid overload - c/w Furosemide Elevated bilirubin - Has been trending down - No abdominal pain DVT prophylaxis - c/w Lovenox Code status: - DNR / DNI VS,Fishbone, I+O VS, Fishbone, I+O Laboratory Tests 08/25/20 15:38 08/26/20 05:50 Vital Signs Date Time Temp Pulse Resp B/P (MAP) Pulse Ox O2 Delivery O2 Flow Rate FiO2 08/26/20 09:14 58 134/82 08/26/20 06:48 97.5 18 97 08/26/20 01:45 Room Air TR MONTOYA MD Aug 26, 2020 12:33
[2020-08-26 14:00] VITALS: BP 137/61
[2020-08-26] MEDS ORDERED: PILL CUTTER 1 EACH XX PRN (16:25)
[2020-08-26] MEDS ORDERED: QUEtiapine FUMARATE 50MG TAB PO SCH (21:00)
[2020-08-26] MEDS: risperiDONE 0.5 MG TAB PO SCH (21:58)
[2020-08-26 22:00] VITALS: BP 161/69
[2020-08-27 06:00] VITALS: BP 162/71
[2020-08-27 06:51] LABS: BASO # 0.1 10^3/uL (0.0-0.2); BASO % 0.7 % (0.0-1.0); EOS # 0.1 10^3/uL (0.0-0.5); EOS % 1.7 % (0.0-3.0); HEMATOCRIT 36.9 % (42.0-52.0); HEMOGLOBIN 12.5 g/dl (13.5-17.5); LYMPH # 2.8 10^3/uL (1.5-5.0); LYMPH % 37.2 % (24.0-44.0); MEAN CORPUSCULAR HEMOGLOBIN 31.4 pg (27.0-33.0); MEAN CORPUSCULAR HGB CONC 33.9 g/dl (32.0-36.5); MEAN CORPUSCULAR VOLUME 92.7 fl (80.0-96.0); MONO # 0.8 10^3/uL (0.0-0.8); MONO % 10.1 % (2.0-8.0); NEUTROPHILS # 3.8 10^3/uL (1.5-8.5); PLATELET COUNT, AUTOMATED 126 10^3/uL (150-450); RED BLOOD COUNT 3.98 10^6/uL (4.30-6.10); WHITE BLOOD COUNT 7.6 10^3/uL (4.0-10.0)
[2020-08-27 07:13] LABS: ALBUMIN 3.6 GM/DL (3.2-5.2); BILIRUBIN,DIRECT 0.3 MG/DL (0.0-0.2); BILIRUBIN,TOTAL 1.5 MG/DL (0.2-1.0); CALCIUM LEVEL 8.5 MG/DL (8.8-10.2); CREATININE FOR GFR 1.28 MG/DL (0.70-1.30); GLOMERULAR FILTRATION RATE 57.6 (>35); MAGNESIUM LEVEL 2.1 MG/DL (1.8-2.4); POTASSIUM SERUM 3.2 MEQ/L (3.5-5.1); TOTAL PROTEIN 6.6 GM/DL (6.4-8.2)
[2020-08-27] MEDS ORDERED: POTASSIUM CHLORIDE 10 MEQ SR TABLET PO ONE (07:40)
[2020-08-27] MEDS: HumaLOG INSULIN (NovoLOG) PER UNIT SC SCH (08:23)
[2020-08-27] MEDS: VENLAFAXINE **XR** 37.5 MG CAPSULE PO SCH (08:24)
[2020-08-27] MEDS: risperiDONE 0.5 MG TAB PO SCH (08:24)
[2020-08-27] MEDS: MEMANTINE 5MG TABLET (NAMENDA) PO SCH (08:24)
[2020-08-27 08:25] VITALS: BP 118/60
[2020-08-27] MEDS: CARVedilol 12.5 MG TAB PO SCH (08:25)
[2020-08-27] MEDS: ENOXAPARIN 40MG/0.4ML SYRINGE (J1650 PER 10MG) SC SCH (08:25)
[2020-08-27] MEDS ORDERED: RISP-7 PO (09:38)
[2020-08-27] MEDS ORDERED: risperiDONE 0.5 MG TAB PO ONE (09:40)
[2020-08-27] MEDS: FUROSEMIDE 40 MG TAB PO SCH (09:58)
--- NOTE | 2020-08-27 10:40 | DS.PDOC ---
Discharge Summary General Date of Admission Aug 26, 2020 at 12:33 Date of Discharge 08/27/2020 Discharge Summary PROCEDURES PERFORMED DURING STAY: [None]. ADMITTING DIAGNOSES / DISCHARGE DIAGNOSES: Confusion - likely 2/2 progression of dementia Reported V. tach HTN NIDDM2 CAD Chronic Systolic CHF Elevated bilirubin DVT prophylaxis COMPLICATIONS/CHIEF COMPLAINT: Worsening dementia HISTORY OF PRESENT ILLNESS: Patient is an 80-year-old male with a PMHx of Dementia, CAD, Systolic CHF (EF: 45%), HTN, PVD, FATUMA on CPAP, Hx of Bilateral PE, NIDDM2, DLP, Prostate CA, Hx of GI bleed, GERD who is brought to the ER for a 5 day history of worsening confusion. Patient is oriented to person and place but not time. Patient appears to be having confusion at home. Has started driving after not driving for 3 years. Was brought back home by police was cooperative with them and with hospital staff, however, family reports that this is not helping to his home. Patient was seen and examined at the bedside. Patient sitting in the hallway doing puzzles and coloring books with nursing staff does not appear to be in any discomfort, is cooperative. Denies any pain. HOSPITAL COURSE: Confusion - likely 2/2 progression of dementia - Remains hemodynamically stable and afebrile - UA without any signs of infection - Imaging noted above - c/w Venlafaxine, Memantine, Donepezil - s/p Quetiapine; Started on Risperidone - QTC improved compared to admission (not prolonged) - Will have outpatient follow-up with primary care provider, and neurology within the next 7 days Reported V. tach - Blood pressure / home medications resumed - EKG reviewed - currently ventricularly paced - Electrolytes noted - s/p Amiodarone 1 dose - No events noted on telemetry over last 24 hours - Follows with Dr. Golden (Cardiology) as an outpatient; will have outpatient follow up HTN - BP well controlled - c/w Carvedilol and Furosemide NIDDM2 - s/p Glimepiride - c/w ISS CAD - c/w Atorvastatin and Carvedilol Chronic Systolic CHF - No signs of fluid overload - c/w Furosemide Elevated bilirubin - Has been trending down - No abdominal pain DVT prophylaxis - c/w Lovenox DISCHARGE MEDICATIONS: Please see below. ALLERGIES: Please see below. PHYSICAL EXAMINATION ON DISCHARGE: Vitals (See below) General: Lying in bed, appears comfortable, patient is awake, alert, cooperative, oriented to person, place HEENT: NC, AT CVS: +S1S2 Lungs: Fair air entry b/l, no wheezing, resonant rhonchi Abdomen: Soft, nondistended, nontender Extremities: Lower extremities are without any edema, - Calf tenderness LABORATORY DATA: Please see below. IMAGING: CXR 08/25: Pacemaker in place. Mildly prominent heart. Otherwise no active disease.. CT head 08/25: No acute intracranial findings. ACTIVITY: [As tolerated]. DISCHARGE PLAN: Follow-up with primary care provider and neurology within the next 7 days Remain compliant with treatment plan and medications Return to the ER if you experience any problems DISPOSITION: Home with services DISCHARGE CONDITION: [Stable]. TIME SPENT ON DISCHARGE: 35 minutes. Vital Signs/I&Os Vital Signs Date Time Temp Pulse Resp B/P (MAP) Pulse Ox O2 Delivery O2 Flow Rate FiO2 08/27/20 08:25 50 118/60 08/27/20 06:00 97.4 18 94 Room Air I&O- Last 24 Hours up to 6 AM 08/27/20 06:00 Intake Total 2635 ml Output Total 400 ml Balance 2235 ml Laboratory Data Labs 24H Laboratory Tests 2 08/26/20 11:46: Bedside Glucose (Misc Panel) 137H 08/26/20 17:01: Bedside Glucose (Misc Panel) 211H 08/26/20 21:50: Bedside Glucose (Misc Panel) 131H 08/27/20 06:20: Immature Granulocyte % (Auto) 0.3, Neutrophils (%) (Auto) 50.0, Lymphocytes (%) (Auto) 37.2, Monocytes (%) (Auto) 10.1H, Eosinophils (%) (Auto) 1.7, Basophils (%) (Auto) 0.7, Neutrophils # (Auto) 3.8, Lymphocytes # (Auto) 2.8, Monocytes # (Auto) 0.8, Eosinophils # (Auto) 0.1, Basophils # (Auto) 0.1, Nucleated Red Blood Cells % (auto) 0.0, Anion Gap 5L, Glomerular Filtration Rate 57.6, Calcium Level 8.5L, Magnesium Level 2.1, Total Bilirubin 1.5H, Direct Bilirubin 0.3H, Aspartate Amino Transf (AST/SGOT) 29, Alanine Aminotransferase (ALT/SGPT) 32, A lkaline Phosphatase 52, Total Protein 6.6, Albumin 3.6, Albumin/Globulin Ratio 1.2 CBC/BMP Laboratory Tests 08/27/20 06:20 FSBS Laboratory Tests Test 08/26/20 11:46 08/26/20 17:01 08/26/20 21:50 Range/Units Bedside Glucose (Misc Panel) 137 211 131 83-110 MG/DL Discharge Medications Scheduled Atorvastatin Calcium (Atorvastatin Calcium) 40 Mg Tab, 40 MG PO QHS, (Reported) Carvedilol (Carvedilol) 12.5 Mg Tablet, 12.5 MG PO BID, (Reported) Donepezil HCl (Donepezil HCl) 10 Mg Tablet, 10 MG PO QHS, (Reported) Furosemide (Furosemide) 40 Mg Tablet, 40 MG PO DAILY, (Reported) Glimepiride (Glimepiride) 1 Mg Tab, 1 MG PO DAILY, (Reported) Memantine HCl (Memantine HCl) 10 Mg Tablet, 10 MG PO BID, (Reported) Risperidone (Risperidone) 0.5 Mg Tablet, 0.5 MG PO BID Venlafaxine HCl (Venlafaxine HCl ER) 37.5 Mg Cap.er.24h, 37.5 MG PO DAILY, (Reported) Vits A,C,E/Lutein/Minerals (Ocuvite with Lutein Tablet) 1 Each Tablet, 1 TAB PO DAILY, (Reported) Allergies Coded Allergies: No Known Allergies (Verified , 08/19/02) TR MONTOYA MD Aug 27, 2020 10:40
[2020-08-27] MEDS ORDERED: risperiDONE 0.5 MG TAB PO SCH (21:00)
--- NOTE | 2020-08-28 22:30 | ECGEPIP ---
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
== END 2020-08-27 13:06 | disposition home health service (06) | DRG 884 ==
LOC: M ED 12:22 → M ED INP 12:23 → ENRESERV 08-26 05:44 → M MSPAV 08-26 06:46 → OBSVTOIN 08-26 12:33
PROVIDERS: ADMIT Internal Medicine; ATTEND Internal Medicine
DX: F03.91 Unspecified dementia, unspecified severity, with behavioral disturbance (principal); I50.22 Chronic systolic (congestive) heart failure; I47.2 Ventricular tachycardia; R17 Unspecified jaundice; I25.10 Atherosclerotic heart disease of native coronary artery without angina pectoris; E11.51 Type 2 diabetes mellitus with diabetic peripheral angiopathy without gangrene; K21.9 Gastro-esophageal reflux disease without esophagitis; G47.33 Obstructive sleep apnea (adult) (pediatric); R32 Unspecified urinary incontinence; E78.5 Hyperlipidemia, unspecified; I11.0 Hypertensive heart disease with heart failure; I16.0 Hypertensive urgency; Z66 Do not resuscitate; Z85.46 Personal history of malignant neoplasm of prostate; Z95.5 Presence of coronary angioplasty implant and graft; Z95.820 Peripheral vascular angioplasty status with implants and grafts; Z98.41 Cataract extraction status, right eye; Z90.49 Acquired absence of other specified parts of digestive tract; Z98.42 Cataract extraction status, left eye; Z95.828 Presence of other vascular implants and grafts; Z86.711 Personal history of pulmonary embolism; Z86.718 Personal history of other venous thrombosis and embolism; Z79.84 Long term (current) use of oral hypoglycemic drugs; Z79.899 Other long term (current) drug therapy

== ENCOUNTER → 2021-07-14 | Outpatient (CLI) | payer MEDICARE ==
[~2021-07-14] MED LIST changes: +CARV12.5 PO; +DONE-1 PO; +DONE10TA90 PO; +FURO40TA2 PO; +MEMA10TA19 PO; +OCUVTAB PO; +QUET1TAB17 PO; +RISP-7 PO; +VENL37.598 PO
== END ==
LOC: M PLALAB 14:15
PROVIDERS: ATTEND Physician Assistant
DX: C61 Malignant neoplasm of prostate (principal)

== ENCOUNTER → 2022-04-19 | Outpatient (REF) | payer MEDICARE ==
[~2022-04-19] MED LIST changes: +CLOP75TA99 PO; -PLAV1TAB2 PO
[2022-04-19 12:04] LABS: APPEARANCE, URINE CLEAR (CLEAR); BACTERIA, URINE AUTO NEGATIVE (NEGATIVE); BILIRUBIN, URINE AUTO NEGATIVE (NEGATIVE); BLOOD, URINE BLOOD NEGATIVE (NEGATIVE); COLOR, URINE YELLOW (YELLOW); GLUCOSE, URINE (UA) AUTO NEGATIVE (NEGATIVE); KETONE, URINE AUTO TRACE mg/dL (NEGATIVE); LEUKOCYTE ESTERASE, URINE AUTO NEGATIVE (NEGATIVE); MUCUS, URINE SMALL (NEGATIVE); NITRITE, URINE AUTO NEGATIVE (NEGATIVE); PROTEIN, URINE AUTO NEGATIVE (NEGATIVE); RBC, URINE AUTO 0 /HPF (0-3); SPECIFIC GRAVITY URINE AUTO 1.021 (1.002-1.035); SQUAMOUS EPITHELIAL CELL UR AU 0 /HPF (0-6); UROBILINOGEN, URINE AUTO 0.2 mg/dL (0.0-2.0); WBC, URINE AUTO 1 /HPF (0-3)
[2022-04-19 12:05] LABS: HEMATOCRIT 41.4 % (42.0-52.0); HEMOGLOBIN 13.7 g/dl (13.5-17.5); MEAN CORPUSCULAR HEMOGLOBIN 31.9 pg (27.0-33.0); MEAN CORPUSCULAR HGB CONC 33.1 g/dl (32.0-36.5); MEAN CORPUSCULAR VOLUME 96.5 fl (80.0-96.0); PLATELET COUNT, AUTOMATED 199 10^3/uL (150-450); RED BLOOD COUNT 4.29 10^6/uL (4.30-6.10); WHITE BLOOD COUNT 9.3 10^3/uL (4.0-10.0)
[2022-04-19 12:35] LABS: ALBUMIN 3.8 G/DL (3.2-5.2); CALCIUM LEVEL 9.3 MG/DL (8.3-10.6); CHOLESTEROL RISK RATIO 2.29 (<5); CREATININE FOR GFR 1.53 MG/DL (0.70-1.30); GLOMERULAR FILTRATION RATE 46.7 (>35); HDL CHOLESTEROL 48.9 MG/DL (>40); LDL CHOLESTEROL 44.7 MG/DL (<100); TOTAL PROTEIN 6.9 G/DL (5.7-8.2)
[2022-04-19 14:12] LABS: HEMOGLOBIN A1c 5.9 % (4.0-6.0)
== END ==
LOC: M LAB REF 11:36
PROVIDERS: ATTEND Internal Medicine Cardiovascular Disease
DX: N39.0 Urinary tract infection, site not specified (principal); I11.9 Hypertensive heart disease without heart failure; E78.5 Hyperlipidemia, unspecified

== ENCOUNTER 2022-04-22 12:44 | Observation (INO) | payer MEDICARE ==
[~2022-04-22] VITALS: Ht 170.2 cm; Wt 83.7 kg
[2022-04-22 14:01] LABS: BASO # 0.1 10^3/uL (0.0-0.2); BASO % 0.6 % (0.0-1.0); EOS # 0.1 10^3/uL (0.0-0.5); EOS % 1.4 % (0.0-3.0); HEMATOCRIT 40.4 % (42.0-52.0); HEMOGLOBIN 13.3 g/dl (13.5-17.5); LYMPH # 1.9 10^3/uL (1.5-5.0); LYMPH % 19.9 % (24.0-44.0); MEAN CORPUSCULAR HEMOGLOBIN 31.7 pg (27.0-33.0); MEAN CORPUSCULAR HGB CONC 32.9 g/dl (32.0-36.5); MEAN CORPUSCULAR VOLUME 96.4 fl (80.0-96.0); MONO # 0.8 10^3/uL (0.0-0.8); MONO % 8.1 % (2.0-8.0); NEUTROPHILS # 6.6 10^3/uL (1.5-8.5); NEUTROPHILS % 69.4 % (36.0-66.0); PLATELET COUNT, AUTOMATED 185 10^3/uL (150-450); RED BLOOD COUNT 4.19 10^6/uL (4.30-6.10); WHITE BLOOD COUNT 9.5 10^3/uL (4.0-10.0)
[2022-04-22 14:18] LABS: INR 0.99; PROTHROMBIN TIME 13.3 SECONDS (12.5-14.5)
[2022-04-22 14:19] LABS: PARTIAL THROMBOPLASTIN TIME 25.5 SECONDS (24.8-34.2)
[2022-04-22 14:33] LABS: CK-MB VALUE MASS < 1.0 NG/ML (<3.6)
[2022-04-22 14:34] LABS: BLOOD UREA NITROGEN 30 MG/DL (9-23); CALCIUM LEVEL 8.7 MG/DL (8.3-10.6); CARBON DIOXIDE LEVEL 29 MMOL/L (20-31); CHLORIDE LEVEL 107 MMOL/L (98-107); CREATININE FOR GFR 1.42 MG/DL (0.70-1.30); GLOMERULAR FILTRATION RATE 50.9 (>35); GLUCOSE, FASTING 117 MG/DL (74-106); POTASSIUM SERUM 3.9 MMOL/L (3.5-5.1); SODIUM LEVEL 142 MMOL/L (136-145)
[2022-04-22 14:37] LABS: FREE T4 1.05 NG/DL (0.89-1.76); THYROID STIMULATING HORMONE 3.112 uIU/ML (0.55-4.78)
[2022-04-22 14:38] LABS: CPK CREATINE PHOSPHOKINASE 43 U/L (46-171); MB/CK RELATIVE INDEX 2.32 (< OR =4)
[2022-04-22 14:41] LABS: RSV AMPLIFICATION NEGATIVE (NEGATIVE)
[2022-04-22] MEDS ORDERED: LR 1,000 ML IV SCH (17:30)
[2022-04-22] MEDS ORDERED: risperiDONE 1 MG TAB PO ONE (19:05)
[2022-04-22] MEDS ORDERED: PANT40TA29 PO (19:28)
[2022-04-22] MEDS ORDERED: QUET50TA4 PO (19:28)
[2022-04-22] MEDS ORDERED: VALS1TAB66 PO (19:28)
[2022-04-22] MEDS ORDERED: MEMA1TAB3 PO (19:28)
[2022-04-22] MEDS ORDERED: METO50TA7 PO (19:28)
[2022-04-22] MEDS ORDERED: ASPI81TA26 PO (19:28)
[2022-04-22] MEDS ORDERED: AMIO200T37 PO (19:28)
[2022-04-22] MEDS ORDERED: POTA-150 PO (19:28)
[2022-04-22] MEDS ORDERED: HOME MED LIST COMPLETE! XX SCH (19:30)
[2022-04-22] MEDS: AMIODARONE 200 MG TAB (PACERONE) PO SCH (20:50)
[2022-04-22] MEDS: POTASSIUM CHLORIDE 10MEQ SR TABLET PO SCH (20:50)
[2022-04-22] MEDS ORDERED: ATORVASTATIN 20 MG TAB PO SCH (21:00)
[2022-04-22] MEDS ORDERED: QUEtiapine FUMARATE 50MG TAB PO SCH (21:00)
[2022-04-22] MEDS: MEMANTINE 5MG TABLET (NAMENDA) PO SCH (21:00)
[2022-04-22 21:04] VITALS: BP 162/70
[2022-04-22] MEDS: METOPROLOL TART 50 MG TAB PO SCH (21:04)
[2022-04-22 21:38] VITALS: BP 149/67
[2022-04-22 22:00] VITALS: O2SAT 97
[2022-04-22 23:00] VITALS: O2SAT 95
[2022-04-22 23:58] VITALS: BP 139/63
[2022-04-23] VITALS (8 sets, daily range): BP systolic 130–168; BP diastolic 64–80; O2SAT 95–99
[2022-04-23] MEDS: MEMANTINE 5MG TABLET (NAMENDA) PO SCH ×2 (02:11→09:48)
[2022-04-23] MEDS ORDERED: OLANZapine INTRAMUSCULAR 10MG VIAL IM ONE (03:00)
[2022-04-23 05:14] LABS: BASO % 0.3 % (0.0-1.0); EOS # 0.1 10^3/uL (0.0-0.5); EOS % 0.8 % (0.0-3.0); HEMATOCRIT 36.3 % (42.0-52.0); LYMPH # 3.7 10^3/uL (1.5-5.0); LYMPH % 27.9 % (24.0-44.0); MEAN CORPUSCULAR HGB CONC 33.1 g/dl (32.0-36.5); MEAN CORPUSCULAR VOLUME 96.8 fl (80.0-96.0); MONO % 7.5 % (2.0-8.0); NEUTROPHILS # 8.3 10^3/uL (1.5-8.5); PLATELET COUNT, AUTOMATED 153 10^3/uL (150-450); RED BLOOD COUNT 3.75 10^6/uL (4.30-6.10); WHITE BLOOD COUNT 13.2 10^3/uL (4.0-10.0)
[2022-04-23 05:32] LABS: CALCIUM LEVEL 8.7 MG/DL (8.3-10.6); CREATININE FOR GFR 1.25 MG/DL (0.70-1.30); MAGNESIUM LEVEL 1.9 MG/DL (1.8-2.4); POTASSIUM SERUM 3.7 MMOL/L (3.5-5.1)
[2022-04-23] MEDS ORDERED: PANTOPRAZOLE 40MG TAB (PROTONIX) PO SCH (09:00)
[2022-04-23] MEDS ORDERED: VALSARTAN 80 MG TAB (DIOVAN) PO SCH (09:00)
[2022-04-23] MEDS ORDERED: DONEPEZIL 5 MG TAB PO SCH (09:00)
[2022-04-23] MEDS ORDERED: ASPIRIN 81MG ENTERIC TABLET PO SCH (09:00)
[2022-04-23] MEDS ORDERED: HEPARIN SOD (PORCINE) 5000UNITS/ML 1ML VIAL/SYRINGE SC SCH (09:00)
[2022-04-23] MEDS ORDERED: FUROSEMIDE 40 MG TAB PO SCH (09:00)
[2022-04-23] MEDS: METOPROLOL TART 50 MG TAB PO SCH (09:49)
[2022-04-23] MEDS: POTASSIUM CHLORIDE 10MEQ SR TABLET PO SCH (09:49)
[2022-04-23] MEDS: AMIODARONE 200 MG TAB (PACERONE) PO SCH (09:49)
[2022-04-23 10:34] LABS: APPEARANCE, URINE CLEAR (CLEAR); BACTERIA, URINE AUTO NEGATIVE (NEGATIVE); BILIRUBIN, URINE AUTO NEGATIVE (NEGATIVE); BLOOD, URINE BLOOD NEGATIVE (NEGATIVE); COLOR, URINE YELLOW (YELLOW); GLUCOSE, URINE (UA) AUTO NEGATIVE (NEGATIVE); KETONE, URINE AUTO NEGATIVE (NEGATIVE); LEUKOCYTE ESTERASE, URINE AUTO NEGATIVE (NEGATIVE); MUCUS, URINE SMALL (NEGATIVE); NITRITE, URINE AUTO NEGATIVE (NEGATIVE); PROTEIN, URINE AUTO NEGATIVE (NEGATIVE); RBC, URINE AUTO 1 /HPF (0-3); SQUAMOUS EPITHELIAL CELL UR AU 0 /HPF (0-6); UROBILINOGEN, URINE AUTO 0.2 mg/dL (0.0-2.0); WBC, URINE AUTO 0 /HPF (0-3)
[2022-04-23] MEDS ORDERED: FURO40TA2 PO (12:17)
== END 2022-04-23 14:12 | disposition home health service (06) ==
LOC: M ED 12:44 → EDBD 12:44 → M ED INP 17:49 → ENRESERVDT 20:27 → ENRESERVTM 20:27 → M PCU 21:31
PROVIDERS: ADMIT Internal Medicine; ATTEND Internal Medicine
DX: R55 Syncope and collapse (principal); R79.89 Other specified abnormal findings of blood chemistry; I50.9 Heart failure, unspecified; F03.C0 Unspecified dementia, severe, without behavioral disturbance, psychotic disturbance, mood disturbance, and anxiety; E78.5 Hyperlipidemia, unspecified; I11.0 Hypertensive heart disease with heart failure; I25.10 Atherosclerotic heart disease of native coronary artery without angina pectoris; E11.51 Type 2 diabetes mellitus with diabetic peripheral angiopathy without gangrene; G47.33 Obstructive sleep apnea (adult) (pediatric); I73.9 Peripheral vascular disease, unspecified; R41.82 Altered mental status, unspecified; I47.1 Supraventricular tachycardia; I65.23 Occlusion and stenosis of bilateral carotid arteries; Z86.39 Personal history of other endocrine, nutritional and metabolic disease; Z86.711 Personal history of pulmonary embolism; Z95.810 Presence of automatic (implantable) cardiac defibrillator; S91.302D Unspecified open wound, left foot, subsequent encounter; X58.XXXD Exposure to other specified factors, subsequent encounter; Z87.891 Personal history of nicotine dependence; Z79.899 Other long term (current) drug therapy; Z79.82 Long term (current) use of aspirin
CPT/HCPCS: 36415; 70450; 71045; 80048; 81001; 82550; 82553; 83605; 83735; 84439; 84443; 84484; 85025; 85610; 85730; 87631; 93005; 93041; 94760; 96360; 96361; 96372; 97161; 99285; G0378

== ENCOUNTER 2022-07-15 12:28 | Emergency (ER) | payer MEDICARE ==
[~2022-07-15 12:28] MED LIST changes: +AMIO200T37 PO; +ASPI81TA26 PO; +MEMA1TAB3 PO; +METO50TA7 PO; +PANT40TA29 PO; +POTA-150 PO; +QUET50TA4 PO; +VALS1TAB66 PO
[2022-07-15 13:09] LABS: BASO % 0.5 % (0.0-1.0); EOS # 0.1 10^3/uL (0.0-0.5); EOS % 0.8 % (0.0-3.0); HEMATOCRIT 36.3 % (42.0-52.0); HEMOGLOBIN 12.3 g/dl (13.5-17.5); LYMPH # 1.2 10^3/uL (1.5-5.0); LYMPH % 15.7 % (24.0-44.0); MEAN CORPUSCULAR HEMOGLOBIN 32.6 pg (27.0-33.0); MEAN CORPUSCULAR HGB CONC 33.9 g/dl (32.0-36.5); MEAN CORPUSCULAR VOLUME 96.3 fl (80.0-96.0); MONO # 0.8 10^3/uL (0.0-0.8); MONO % 10.2 % (2.0-8.0); NEUTROPHILS # 5.5 10^3/uL (1.5-8.5); NEUTROPHILS % 72.1 % (36.0-66.0); PLATELET COUNT, AUTOMATED 135 10^3/uL (150-450); RED BLOOD COUNT 3.77 10^6/uL (4.30-6.10); WHITE BLOOD COUNT 7.7 10^3/uL (4.0-10.0)
[2022-07-15] MEDS ORDERED: ISOVUE-370 76% 100ML VIAL As Ordered ONE (13:14)
[2022-07-15 13:28] LABS: ALBUMIN 3.6 G/DL (3.2-5.2); BILIRUBIN,DIRECT 0.6 MG/DL (<0.4); BILIRUBIN,TOTAL 1.5 MG/DL (0.3-1.2); CALCIUM LEVEL 8.6 MG/DL (8.3-10.6); CREATININE FOR GFR 1.38 MG/DL (0.70-1.30); GLOMERULAR FILTRATION RATE 52.5 (>35); POTASSIUM SERUM 3.6 MMOL/L (3.5-5.1); TOTAL PROTEIN 6.2 G/DL (5.7-8.2)
[2022-07-15 13:59] LABS: RSV AMPLIFICATION NEGATIVE (NEGATIVE)
[2022-07-15] MEDS ORDERED: NS 1,000 ML IV ONE (15:30)
[2022-07-15] MEDS ORDERED: RA M1.74 PO (17:40)
[2022-07-15] MEDS ORDERED: MIRA3350 PO (17:40)
[2022-07-15] MEDS ORDERED: SENO8.6T10 PO (17:40)
[2022-07-15] MEDS ORDERED: MAGNESIUM CITRATE 300ML BTL PO ONE (17:45)
[2022-07-15 18:15] VITALS: BP 186/113
== END 2022-07-15 18:59 | disposition home or self-care (01) ==
LOC: M ED 12:28 → EDBD 12:28 → M ED 18:59
DX: K59.00 Constipation, unspecified (principal); I11.9 Hypertensive heart disease without heart failure; E11.9 Type 2 diabetes mellitus without complications; E78.5 Hyperlipidemia, unspecified; Z86.711 Personal history of pulmonary embolism; Z87.442 Personal history of urinary calculi; Z95.5 Presence of coronary angioplasty implant and graft; F17.200 Nicotine dependence, unspecified, uncomplicated; F03.90 Unspecified dementia, unspecified severity, without behavioral disturbance, psychotic disturbance, mood disturbance, and anxiety; Z79.899 Other long term (current) drug therapy; Z79.82 Long term (current) use of aspirin
CPT/HCPCS: 36415; 71045; 74177; 80047; 80048; 80076; 81001; 83605; 83690; 85025; 87631; 93041; 99285; Q9967

== ENCOUNTER → 2022-08-19 | Outpatient (CLI) | payer MEDICARE ==
[~2022-08-19] MED LIST changes: +MIRA3350 PO; +RA M1.74 PO; +SENO8.6T10 PO
== END ==
LOC: M PLALAB 15:34
PROVIDERS: ATTEND Physician Assistant
DX: C61 Malignant neoplasm of prostate (principal)

== ENCOUNTER 2022-08-26 13:59 | Observation (INO) | payer MEDICARE ==
[~2022-08-26] VITALS: Ht 170.2 cm; Wt 70.8 kg
[2022-08-26 19:48] LABS: BASO % 0.5 % (0.0-1.0); EOS # 0.1 10^3/uL (0.0-0.5); EOS % 0.7 % (0.0-3.0); HEMATOCRIT 43.7 % (42.0-52.0); HEMOGLOBIN 14.1 g/dl (13.5-17.5); LYMPH # 2.8 10^3/uL (1.5-5.0); LYMPH % 34.3 % (24.0-44.0); MEAN CORPUSCULAR HEMOGLOBIN 30.7 pg (27.0-33.0); MEAN CORPUSCULAR HGB CONC 32.3 g/dl (32.0-36.5); MONO # 0.6 10^3/uL (0.0-0.8); MONO % 7.6 % (2.0-8.0); NEUTROPHILS # 4.7 10^3/uL (1.5-8.5); NEUTROPHILS % 56.5 % (36.0-66.0); PLATELET COUNT, AUTOMATED 194 10^3/uL (150-450); WHITE BLOOD COUNT 8.3 10^3/uL (4.0-10.0)
[2022-08-26 20:05] LABS: ALBUMIN 4.1 G/DL (3.2-5.2); BILIRUBIN,DIRECT 0.3 MG/DL (<0.4); CALCIUM LEVEL 9.7 MG/DL (8.3-10.6); CK-MB VALUE MASS 1.9 NG/ML (<3.6); CREATININE FOR GFR 1.44 MG/DL (0.70-1.30); POTASSIUM SERUM 4.2 MMOL/L (3.5-5.1); TOTAL PROTEIN 7.4 G/DL (5.7-8.2)
[2022-08-26 20:08] LABS: MB/CK RELATIVE INDEX 1.68 (< OR =4)
[2022-08-26] MEDS ORDERED: levETIRAcetam INJection 1,000 MG in D5W 100 ML IV ONE (20:55)
[2022-08-27] MEDS ORDERED: FURO40TA2 PO (08:44)
[2022-08-27] MEDS ORDERED: KEPP1TAB PO (08:50)
[2022-08-27] MEDS ORDERED: SENN-23 PO (08:50)
[2022-08-27] MEDS ORDERED: MIRA3350 PO (08:50)
[2022-08-27] MEDS ORDERED: ROZE8TAB16 PO (08:50)
[2022-08-27] MEDS ORDERED: HOME MED LIST COMPLETE! XX SCH (09:05)
[2022-08-27] MEDS: levETIRAcetam 250MG TABLET (KEPPRA) PO SCH ×2 (09:46→20:31)
[2022-08-27 10:32] VITALS: BP 161/78; TEMP 97.3; O2SAT 98
[2022-08-27] MEDS: FUROSEMIDE 40 MG TAB PO SCH (11:20)
[2022-08-27] MEDS: POTASSIUM CHLORIDE 10MEQ SR TABLET PO SCH ×2 (11:21→20:31)
[2022-08-27] MEDS: MIRALAX *UNIT DOSE* 17GM PACKET PO SCH ×2 (11:21→20:31)
[2022-08-27] MEDS: SENOKOT S TAB PO SCH ×2 (11:21→20:31)
[2022-08-27] MEDS: AMIODARONE 200 MG TAB (PACERONE) PO SCH ×2 (11:22→20:31)
[2022-08-27] MEDS: MEMANTINE 5MG TABLET (NAMENDA) PO SCH ×2 (11:22→20:32)
[2022-08-27] MEDS: ASPIRIN 81MG ENTERIC TABLET PO SCH (11:22)
[2022-08-27] MEDS: PANTOPRAZOLE 40MG TAB (PROTONIX) PO SCH (11:22)
[2022-08-27] MEDS: SANTYL OINT 30GM TOP SCH (12:30)
[2022-08-27 14:00] VITALS: BP 102/82; TEMP 97.9; O2SAT 98
[2022-08-27] MEDS: HEPARIN SOD (PORCINE) 5000UNITS/ML 1ML VIAL/SYRINGE SQ SCH ×2 (14:00→20:32)
[2022-08-27] MEDS ORDERED: GLUCOSE 4GM CHEW TABLET PO PRN (16:10)
[2022-08-27] MEDS ORDERED: GLUCAGON INJ 1MG VIAL SC PRN (16:10)
[2022-08-27] MEDS ORDERED: DEXTROSE 50% 50ML SYRINGE IV PRN (16:10)
[2022-08-27] MEDS: INSULIN LISPRO (NovoLOG) PER UNIT SC SCH ×2 (17:27→20:50)
[2022-08-27 20:00] VITALS: BP 129/51; TEMP 99; O2SAT 95
[2022-08-27] MEDS: RAMELTEON 8 MG TAB (ROZEREM) PO SCH (20:31)
[2022-08-27] MEDS: ATORVASTATIN 20 MG TAB PO SCH (20:31)
[2022-08-28 05:38] VITALS: BP 117/53; TEMP 97.7; O2SAT 97
[2022-08-28] MEDS: HEPARIN SOD (PORCINE) 5000UNITS/ML 1ML VIAL/SYRINGE SQ SCH ×3 (06:12→21:18)
[2022-08-28] MEDS: INSULIN LISPRO (NovoLOG) PER UNIT SC SCH ×4 (07:30→21:00)
[2022-08-28 07:50] LABS: CALCIUM LEVEL 9.3 MG/DL (8.3-10.6); CREATININE FOR GFR 1.23 MG/DL (0.70-1.30); POTASSIUM SERUM 4.4 MMOL/L (3.5-5.1)
[2022-08-28] MEDS: PANTOPRAZOLE 40MG TAB (PROTONIX) PO SCH (10:09)
[2022-08-28] MEDS: MIRALAX *UNIT DOSE* 17GM PACKET PO SCH ×2 (10:09→21:14)
[2022-08-28] MEDS: levETIRAcetam 250MG TABLET (KEPPRA) PO SCH ×2 (10:09→21:13)
[2022-08-28] MEDS: AMIODARONE 200 MG TAB (PACERONE) PO SCH ×2 (10:09→21:12)
[2022-08-28] MEDS: ASPIRIN 81MG ENTERIC TABLET PO SCH (10:09)
[2022-08-28] MEDS: MEMANTINE 5MG TABLET (NAMENDA) PO SCH ×2 (10:10→21:13)
[2022-08-28] MEDS: SENOKOT S TAB PO SCH ×2 (10:10→21:13)
[2022-08-28] MEDS: FUROSEMIDE 40 MG TAB PO SCH (10:10)
[2022-08-28] MEDS: POTASSIUM CHLORIDE 10MEQ SR TABLET PO SCH ×2 (10:10→21:13)
[2022-08-28] MEDS: RAMELTEON 8 MG TAB (ROZEREM) PO SCH (21:12)
[2022-08-28] MEDS: ATORVASTATIN 20 MG TAB PO SCH (21:13)
[2022-08-29] MEDS: HEPARIN SOD (PORCINE) 5000UNITS/ML 1ML VIAL/SYRINGE SQ SCH ×3 (05:42→21:48)
[2022-08-29 05:52] VITALS: BP 108/58; TEMP 98.1; O2SAT 95
[2022-08-29] MEDS: INSULIN LISPRO (NovoLOG) PER UNIT SC SCH ×4 (07:30→20:47)
[2022-08-29] MEDS: PANTOPRAZOLE 40MG TAB (PROTONIX) PO SCH (08:06)
[2022-08-29] MEDS: MIRALAX *UNIT DOSE* 17GM PACKET PO SCH ×2 (08:06→21:48)
[2022-08-29] MEDS: ASPIRIN 81MG ENTERIC TABLET PO SCH (08:06)
[2022-08-29] MEDS: SENOKOT S TAB PO SCH ×2 (08:06→21:49)
[2022-08-29] MEDS: POTASSIUM CHLORIDE 10MEQ SR TABLET PO SCH ×2 (08:06→21:48)
[2022-08-29] MEDS: levETIRAcetam 250MG TABLET (KEPPRA) PO SCH ×2 (08:07→21:48)
[2022-08-29] MEDS: MEMANTINE 5MG TABLET (NAMENDA) PO SCH ×2 (08:07→21:48)
[2022-08-29] MEDS: AMIODARONE 200 MG TAB (PACERONE) PO SCH ×2 (08:08→21:47)
[2022-08-29] MEDS: FUROSEMIDE 40 MG TAB PO SCH (08:08)
[2022-08-29] MEDS: SANTYL OINT 30GM TOP SCH (08:09)
[2022-08-29] MEDS: RAMELTEON 8 MG TAB (ROZEREM) PO SCH (21:48)
[2022-08-29] MEDS: ATORVASTATIN 20 MG TAB PO SCH (21:48)
[2022-08-30] MEDS: HEPARIN SOD (PORCINE) 5000UNITS/ML 1ML VIAL/SYRINGE SQ SCH ×3 (05:09→21:03)
[2022-08-30 05:25] VITALS: BP 119/53; TEMP 98.2; O2SAT 97
[2022-08-30] MEDS: INSULIN LISPRO (NovoLOG) PER UNIT SC SCH ×4 (07:18→21:00)
[2022-08-30] MEDS: FUROSEMIDE 40 MG TAB PO SCH (09:00)
[2022-08-30] MEDS: PANTOPRAZOLE 40MG TAB (PROTONIX) PO SCH (09:11)
[2022-08-30] MEDS: ASPIRIN 81MG ENTERIC TABLET PO SCH (09:11)
[2022-08-30] MEDS: AMIODARONE 200 MG TAB (PACERONE) PO SCH ×2 (09:11→21:03)
[2022-08-30] MEDS: MIRALAX *UNIT DOSE* 17GM PACKET PO SCH ×2 (09:11→21:00)
[2022-08-30] MEDS: SENOKOT S TAB PO SCH ×2 (09:11→21:03)
[2022-08-30] MEDS: POTASSIUM CHLORIDE 10MEQ SR TABLET PO SCH ×2 (09:11→21:03)
[2022-08-30] MEDS: MEMANTINE 5MG TABLET (NAMENDA) PO SCH ×2 (09:11→21:03)
[2022-08-30] MEDS: levETIRAcetam 250MG TABLET (KEPPRA) PO SCH ×2 (09:12→21:03)
[2022-08-30] MEDS: ATORVASTATIN 20 MG TAB PO SCH (21:03)
[2022-08-30] MEDS: RAMELTEON 8 MG TAB (ROZEREM) PO SCH (21:03)
[2022-08-31] MEDS: HEPARIN SOD (PORCINE) 5000UNITS/ML 1ML VIAL/SYRINGE SQ SCH ×3 (05:33→21:18)
[2022-08-31 05:38] VITALS: BP 112/51; TEMP 98.1; O2SAT 93
[2022-08-31] MEDS: INSULIN LISPRO (NovoLOG) PER UNIT SC SCH ×4 (07:30→21:00)
[2022-08-31] MEDS: FUROSEMIDE 40 MG TAB PO SCH (09:00)
[2022-08-31] MEDS: POTASSIUM CHLORIDE 10MEQ SR TABLET PO SCH ×2 (10:07→21:17)
[2022-08-31] MEDS: levETIRAcetam 250MG TABLET (KEPPRA) PO SCH ×2 (10:07→21:17)
[2022-08-31] MEDS: SANTYL OINT 30GM TOP SCH (10:07)
[2022-08-31] MEDS: ASPIRIN 81MG ENTERIC TABLET PO SCH (10:07)
[2022-08-31] MEDS: MIRALAX *UNIT DOSE* 17GM PACKET PO SCH ×2 (10:08→21:18)
[2022-08-31] MEDS: PANTOPRAZOLE 40MG TAB (PROTONIX) PO SCH (10:08)
[2022-08-31] MEDS: SENOKOT S TAB PO SCH ×2 (10:08→21:17)
[2022-08-31] MEDS: AMIODARONE 200 MG TAB (PACERONE) PO SCH ×2 (10:08→21:17)
[2022-08-31] MEDS: MEMANTINE 5MG TABLET (NAMENDA) PO SCH ×2 (10:08→21:17)
[2022-08-31] MEDS: ATORVASTATIN 20 MG TAB PO SCH (21:17)
[2022-08-31] MEDS: RAMELTEON 8 MG TAB (ROZEREM) PO SCH (21:17)
[2022-09-01 06:00] VITALS: BP 142/50; TEMP 97.9; O2SAT 93
[2022-09-01] MEDS: HEPARIN SOD (PORCINE) 5000UNITS/ML 1ML VIAL/SYRINGE SQ SCH ×3 (06:47→20:47)
[2022-09-01] MEDS: INSULIN LISPRO (NovoLOG) PER UNIT SC SCH ×3 (07:30→16:43)
[2022-09-01] MEDS: FUROSEMIDE 40 MG TAB PO SCH (09:00)
[2022-09-01] MEDS: SENOKOT S TAB PO SCH ×2 (10:43→20:49)
[2022-09-01] MEDS: AMIODARONE 200 MG TAB (PACERONE) PO SCH ×2 (10:43→20:49)
[2022-09-01] MEDS: levETIRAcetam 250MG TABLET (KEPPRA) PO SCH ×2 (10:44→20:47)
[2022-09-01] MEDS: MEMANTINE 5MG TABLET (NAMENDA) PO SCH ×2 (10:44→20:47)
[2022-09-01] MEDS: ASPIRIN 81MG ENTERIC TABLET PO SCH (10:45)
[2022-09-01] MEDS: MIRALAX *UNIT DOSE* 17GM PACKET PO SCH ×2 (10:46→20:46)
[2022-09-01] MEDS: POTASSIUM CHLORIDE 10MEQ SR TABLET PO SCH ×2 (10:46→20:47)
[2022-09-01] MEDS: PANTOPRAZOLE 40MG TAB (PROTONIX) PO SCH (10:46)
[2022-09-01] MEDS: ATORVASTATIN 20 MG TAB PO SCH (20:48)
[2022-09-01] MEDS: RAMELTEON 8 MG TAB (ROZEREM) PO SCH (20:48)
[2022-09-02] MEDS: SANTYL OINT 30GM TOP SCH (05:11)
[2022-09-02] MEDS: HEPARIN SOD (PORCINE) 5000UNITS/ML 1ML VIAL/SYRINGE SQ SCH ×3 (05:11→22:00)
[2022-09-02 06:00] VITALS: BP 128/50; TEMP 98.1; O2SAT 95
[2022-09-02] MEDS: FUROSEMIDE 40 MG TAB PO SCH (09:51)
[2022-09-02] MEDS: AMIODARONE 200 MG TAB (PACERONE) PO SCH ×2 (09:51→22:02)
[2022-09-02] MEDS: ASPIRIN 81MG ENTERIC TABLET PO SCH (09:51)
[2022-09-02] MEDS: PANTOPRAZOLE 40MG TAB (PROTONIX) PO SCH (09:51)
[2022-09-02] MEDS: levETIRAcetam 250MG TABLET (KEPPRA) PO SCH ×2 (09:51→21:59)
[2022-09-02] MEDS: POTASSIUM CHLORIDE 10MEQ SR TABLET PO SCH ×2 (09:51→22:00)
[2022-09-02] MEDS: SENOKOT S TAB PO SCH ×2 (09:52→22:00)
[2022-09-02] MEDS: MIRALAX *UNIT DOSE* 17GM PACKET PO SCH ×2 (09:52→21:59)
[2022-09-02] MEDS: MEMANTINE 5MG TABLET (NAMENDA) PO SCH ×2 (09:52→22:00)
[2022-09-02] MEDS: RAMELTEON 8 MG TAB (ROZEREM) PO SCH (21:59)
[2022-09-02] MEDS: ATORVASTATIN 20 MG TAB PO SCH (21:59)
[2022-09-02 22:07] VITALS: BP 122/56
[2022-09-03] MEDS: HEPARIN SOD (PORCINE) 5000UNITS/ML 1ML VIAL/SYRINGE SQ SCH ×3 (05:41→22:04)
[2022-09-03] MEDS: POLYVINYL ALCOHOL OPHTH SOLN 15ML (LIQUITEARS) OS PRN ×3 (05:52→22:13)
[2022-09-03 06:00] VITALS: BP 129/59; TEMP 97.5; O2SAT 97
[2022-09-03] MEDS: POTASSIUM CHLORIDE 10MEQ SR TABLET PO SCH ×2 (10:23→22:03)
[2022-09-03] MEDS: FUROSEMIDE 40 MG TAB PO SCH (10:23)
[2022-09-03] MEDS: MEMANTINE 5MG TABLET (NAMENDA) PO SCH ×2 (10:23→22:02)
[2022-09-03] MEDS: ASPIRIN 81MG ENTERIC TABLET PO SCH (10:23)
[2022-09-03] MEDS: levETIRAcetam 250MG TABLET (KEPPRA) PO SCH ×2 (10:24→22:02)
[2022-09-03] MEDS: AMIODARONE 200 MG TAB (PACERONE) PO SCH ×2 (10:24→22:04)
[2022-09-03] MEDS: SENOKOT S TAB PO SCH ×2 (10:24→22:03)
[2022-09-03] MEDS: PANTOPRAZOLE 40MG TAB (PROTONIX) PO SCH (10:24)
[2022-09-03] MEDS: MIRALAX *UNIT DOSE* 17GM PACKET PO SCH ×2 (10:32→22:00)
[2022-09-03] MEDS: RAMELTEON 8 MG TAB (ROZEREM) PO SCH (22:02)
[2022-09-03] MEDS: ATORVASTATIN 20 MG TAB PO SCH (22:03)
[2022-09-04 05:15] VITALS: BP 143/82; TEMP 98.4; O2SAT 98
[2022-09-04] MEDS: HEPARIN SOD (PORCINE) 5000UNITS/ML 1ML VIAL/SYRINGE SQ SCH ×3 (05:47→21:43)
[2022-09-04] MEDS: POTASSIUM CHLORIDE 10MEQ SR TABLET PO SCH ×2 (08:14→21:42)
[2022-09-04] MEDS: PANTOPRAZOLE 40MG TAB (PROTONIX) PO SCH (08:14)
[2022-09-04] MEDS: ASPIRIN 81MG ENTERIC TABLET PO SCH (08:14)
[2022-09-04] MEDS: FUROSEMIDE 40 MG TAB PO SCH (08:14)
[2022-09-04] MEDS: AMIODARONE 200 MG TAB (PACERONE) PO SCH ×2 (08:14→21:42)
[2022-09-04] MEDS: levETIRAcetam 250MG TABLET (KEPPRA) PO SCH ×2 (08:14→21:43)
[2022-09-04] MEDS: MIRALAX *UNIT DOSE* 17GM PACKET PO SCH ×2 (08:15→21:00)
[2022-09-04] MEDS: SANTYL OINT 30GM TOP SCH (08:15)
[2022-09-04] MEDS: MEMANTINE 5MG TABLET (NAMENDA) PO SCH ×2 (08:15→21:41)
[2022-09-04] MEDS: SENOKOT S TAB PO SCH ×2 (08:15→21:42)
[2022-09-04 18:20] LABS: CALCIUM LEVEL 9.4 MG/DL (8.3-10.6); CREATININE FOR GFR 1.27 MG/DL (0.70-1.30); GLOMERULAR FILTRATION RATE 57.8 (>35); POTASSIUM SERUM 4.2 MMOL/L (3.5-5.1)
[2022-09-04] MEDS: ATORVASTATIN 20 MG TAB PO SCH (21:42)
[2022-09-04] MEDS: POLYVINYL ALCOHOL OPHTH SOLN 15ML (LIQUITEARS) OS PRN (21:42)
[2022-09-04] MEDS: RAMELTEON 8 MG TAB (ROZEREM) PO SCH (21:43)
[2022-09-05] MEDS: HEPARIN SOD (PORCINE) 5000UNITS/ML 1ML VIAL/SYRINGE SQ SCH ×3 (05:15→21:31)
[2022-09-05 06:30] VITALS: BP 130/57; TEMP 98.1; O2SAT 98
[2022-09-05] MEDS: POTASSIUM CHLORIDE 10MEQ SR TABLET PO SCH ×2 (09:16→21:30)
[2022-09-05] MEDS: ASPIRIN 81MG ENTERIC TABLET PO SCH (09:16)
[2022-09-05] MEDS: levETIRAcetam 250MG TABLET (KEPPRA) PO SCH ×2 (09:17→21:30)
[2022-09-05] MEDS: PANTOPRAZOLE 40MG TAB (PROTONIX) PO SCH (09:17)
[2022-09-05] MEDS: SENOKOT S TAB PO SCH ×2 (09:17→21:30)
[2022-09-05] MEDS: MIRALAX *UNIT DOSE* 17GM PACKET PO SCH ×2 (09:17→21:30)
[2022-09-05] MEDS: MEMANTINE 5MG TABLET (NAMENDA) PO SCH ×2 (09:17→21:30)
[2022-09-05] MEDS: AMIODARONE 200 MG TAB (PACERONE) PO SCH ×2 (09:17→21:30)
[2022-09-05] MEDS: FUROSEMIDE 40 MG TAB PO SCH (09:18)
[2022-09-05] MEDS: POLYVINYL ALCOHOL OPHTH SOLN 15ML (LIQUITEARS) OS PRN (15:15)
[2022-09-05] MEDS: ATORVASTATIN 20 MG TAB PO SCH (21:30)
[2022-09-05] MEDS: RAMELTEON 8 MG TAB (ROZEREM) PO SCH (21:30)
[2022-09-06] MEDS: POLYVINYL ALCOHOL OPHTH SOLN 15ML (LIQUITEARS) OS PRN (01:16)
[2022-09-06] MEDS: HEPARIN SOD (PORCINE) 5000UNITS/ML 1ML VIAL/SYRINGE SQ SCH ×3 (05:10→22:11)
[2022-09-06 06:00] VITALS: BP 137/65; TEMP 97.5; O2SAT 95
[2022-09-06] MEDS: MIRALAX *UNIT DOSE* 17GM PACKET PO SCH ×2 (09:40→20:02)
[2022-09-06] MEDS: PANTOPRAZOLE 40MG TAB (PROTONIX) PO SCH (09:40)
[2022-09-06] MEDS: ASPIRIN 81MG ENTERIC TABLET PO SCH (09:40)
[2022-09-06] MEDS: MEMANTINE 5MG TABLET (NAMENDA) PO SCH ×2 (09:41→20:04)
[2022-09-06] MEDS: SENOKOT S TAB PO SCH ×2 (09:41→20:04)
[2022-09-06] MEDS: AMIODARONE 200 MG TAB (PACERONE) PO SCH ×2 (09:41→20:04)
[2022-09-06] MEDS: levETIRAcetam 250MG TABLET (KEPPRA) PO SCH ×2 (09:41→20:03)
[2022-09-06] MEDS: FUROSEMIDE 40 MG TAB PO SCH (09:41)
[2022-09-06] MEDS: POTASSIUM CHLORIDE 10MEQ SR TABLET PO SCH ×2 (09:42→20:04)
[2022-09-06] MEDS: SANTYL OINT 30GM TOP SCH (09:42)
[2022-09-06] MEDS: ERYTHROMYCIN OPHTH OINT OU SCH ×3 (11:19→20:03)
[2022-09-06] MEDS: ATORVASTATIN 20 MG TAB PO SCH (20:04)
[2022-09-06] MEDS: RAMELTEON 8 MG TAB (ROZEREM) PO SCH (20:04)
[2022-09-07 04:00] VITALS: BP 133/60; TEMP 98.1; O2SAT 69
[2022-09-07] MEDS: HEPARIN SOD (PORCINE) 5000UNITS/ML 1ML VIAL/SYRINGE SQ SCH ×3 (05:36→22:00)
[2022-09-07] MEDS: PANTOPRAZOLE 40MG TAB (PROTONIX) PO SCH (08:45)
[2022-09-07] MEDS: MIRALAX *UNIT DOSE* 17GM PACKET PO SCH ×2 (08:45→23:06)
[2022-09-07] MEDS: ASPIRIN 81MG ENTERIC TABLET PO SCH (08:45)
[2022-09-07] MEDS: FUROSEMIDE 40 MG TAB PO SCH (08:46)
[2022-09-07] MEDS: SENOKOT S TAB PO SCH ×2 (08:46→23:05)
[2022-09-07] MEDS: AMIODARONE 200 MG TAB (PACERONE) PO SCH ×2 (08:46→23:05)
[2022-09-07] MEDS: POTASSIUM CHLORIDE 10MEQ SR TABLET PO SCH ×2 (08:46→23:03)
[2022-09-07] MEDS: MEMANTINE 5MG TABLET (NAMENDA) PO SCH ×2 (08:46→23:04)
[2022-09-07] MEDS: levETIRAcetam 250MG TABLET (KEPPRA) PO SCH ×2 (08:46→23:05)
[2022-09-07] MEDS: ERYTHROMYCIN OPHTH OINT OU SCH ×3 (08:47→23:06)
[2022-09-07] MEDS: RAMELTEON 8 MG TAB (ROZEREM) PO SCH (22:12)
[2022-09-07] MEDS: ATORVASTATIN 20 MG TAB PO SCH (23:04)
[2022-09-08 06:00] VITALS: BP 130/72; TEMP 98.1; O2SAT 96
[2022-09-08] MEDS: HEPARIN SOD (PORCINE) 5000UNITS/ML 1ML VIAL/SYRINGE SQ SCH ×3 (06:00→21:12)
[2022-09-08] MEDS: POTASSIUM CHLORIDE 10MEQ SR TABLET PO SCH ×2 (08:49→20:05)
[2022-09-08] MEDS: PANTOPRAZOLE 40MG TAB (PROTONIX) PO SCH (08:49)
[2022-09-08] MEDS: MEMANTINE 5MG TABLET (NAMENDA) PO SCH ×2 (08:49→20:05)
[2022-09-08] MEDS: AMIODARONE 200 MG TAB (PACERONE) PO SCH ×2 (08:49→20:06)
[2022-09-08] MEDS: FUROSEMIDE 40 MG TAB PO SCH (08:50)
[2022-09-08] MEDS: ERYTHROMYCIN OPHTH OINT OU SCH ×3 (08:50→20:06)
[2022-09-08] MEDS: SENOKOT S TAB PO SCH ×2 (08:50→20:05)
[2022-09-08] MEDS: levETIRAcetam 250MG TABLET (KEPPRA) PO SCH ×2 (08:50→20:05)
[2022-09-08] MEDS: MIRALAX *UNIT DOSE* 17GM PACKET PO SCH ×2 (08:51→20:05)
[2022-09-08] MEDS: ASPIRIN 81MG ENTERIC TABLET PO SCH (08:51)
[2022-09-08] MEDS: SANTYL OINT 30GM TOP SCH (10:58)
[2022-09-08] MEDS: POLYVINYL ALCOHOL OPHTH SOLN 15ML (LIQUITEARS) OS PRN (10:59)
[2022-09-08] MEDS: RAMELTEON 8 MG TAB (ROZEREM) PO SCH (20:05)
[2022-09-08] MEDS: ATORVASTATIN 20 MG TAB PO SCH (20:06)
[2022-09-09] MEDS: HEPARIN SOD (PORCINE) 5000UNITS/ML 1ML VIAL/SYRINGE SQ SCH ×3 (05:25→20:26)
[2022-09-09 06:00] VITALS: BP 130/60; TEMP 98.4; O2SAT 98
[2022-09-09] MEDS: PANTOPRAZOLE 40MG TAB (PROTONIX) PO SCH (08:29)
[2022-09-09] MEDS: FUROSEMIDE 40 MG TAB PO SCH (08:29)
[2022-09-09] MEDS: MEMANTINE 5MG TABLET (NAMENDA) PO SCH ×2 (08:29→20:25)
[2022-09-09] MEDS: POTASSIUM CHLORIDE 10MEQ SR TABLET PO SCH ×2 (08:30→20:25)
[2022-09-09] MEDS: levETIRAcetam 250MG TABLET (KEPPRA) PO SCH ×2 (08:30→20:25)
[2022-09-09] MEDS: AMIODARONE 200 MG TAB (PACERONE) PO SCH ×2 (08:30→20:25)
[2022-09-09] MEDS: SENOKOT S TAB PO SCH ×2 (08:30→20:25)
[2022-09-09] MEDS: ASPIRIN 81MG ENTERIC TABLET PO SCH (08:30)
[2022-09-09] MEDS: MIRALAX *UNIT DOSE* 17GM PACKET PO SCH ×2 (08:30→20:24)
[2022-09-09] MEDS: ERYTHROMYCIN OPHTH OINT OU SCH ×3 (08:36→20:24)
[2022-09-09] MEDS: ATORVASTATIN 20 MG TAB PO SCH (20:24)
[2022-09-09] MEDS: RAMELTEON 8 MG TAB (ROZEREM) PO SCH (20:28)
[2022-09-10] MEDS: HEPARIN SOD (PORCINE) 5000UNITS/ML 1ML VIAL/SYRINGE SQ SCH ×3 (05:04→20:11)
[2022-09-10 06:28] VITALS: BP 126/61; TEMP 97.7; O2SAT 91
[2022-09-10] MEDS: PANTOPRAZOLE 40MG TAB (PROTONIX) PO SCH (09:38)
[2022-09-10] MEDS: MIRALAX *UNIT DOSE* 17GM PACKET PO SCH ×2 (09:39→19:59)
[2022-09-10] MEDS: POTASSIUM CHLORIDE 10MEQ SR TABLET PO SCH ×2 (09:39→19:56)
[2022-09-10] MEDS: MEMANTINE 5MG TABLET (NAMENDA) PO SCH ×2 (09:39→19:56)
[2022-09-10] MEDS: levETIRAcetam 250MG TABLET (KEPPRA) PO SCH ×2 (09:39→19:57)
[2022-09-10] MEDS: SENOKOT S TAB PO SCH ×2 (09:39→19:57)
[2022-09-10] MEDS: ASPIRIN 81MG ENTERIC TABLET PO SCH (09:39)
[2022-09-10] MEDS: ERYTHROMYCIN OPHTH OINT OU SCH ×3 (09:41→20:00)
[2022-09-10] MEDS: SANTYL OINT 30GM TOP SCH (09:41)
[2022-09-10] MEDS: AMIODARONE 200 MG TAB (PACERONE) PO SCH ×2 (09:46→19:57)
[2022-09-10] MEDS: FUROSEMIDE 40 MG TAB PO SCH (09:46)
[2022-09-10] MEDS: ATORVASTATIN 20 MG TAB PO SCH (19:56)
[2022-09-10] MEDS: RAMELTEON 8 MG TAB (ROZEREM) PO SCH (19:57)
[2022-09-11] MEDS: HEPARIN SOD (PORCINE) 5000UNITS/ML 1ML VIAL/SYRINGE SQ SCH ×3 (05:18→20:10)
[2022-09-11 05:31] VITALS: BP 142/58; TEMP 98.4; O2SAT 95
[2022-09-11] MEDS: FUROSEMIDE 40 MG TAB PO SCH (09:00)
[2022-09-11 10:23] VITALS: BP 110/50
[2022-09-11] MEDS: MEMANTINE 5MG TABLET (NAMENDA) PO SCH ×2 (10:35→20:09)
[2022-09-11] MEDS: levETIRAcetam 250MG TABLET (KEPPRA) PO SCH ×2 (10:35→20:09)
[2022-09-11] MEDS: ASPIRIN 81MG ENTERIC TABLET PO SCH (10:35)
[2022-09-11] MEDS: PANTOPRAZOLE 40MG TAB (PROTONIX) PO SCH (10:36)
[2022-09-11] MEDS: SENOKOT S TAB PO SCH ×2 (10:36→20:09)
[2022-09-11] MEDS: MIRALAX *UNIT DOSE* 17GM PACKET PO SCH ×2 (10:36→20:09)
[2022-09-11] MEDS: POTASSIUM CHLORIDE 10MEQ SR TABLET PO SCH ×2 (10:36→20:09)
[2022-09-11] MEDS: AMIODARONE 200 MG TAB (PACERONE) PO SCH ×2 (10:36→20:09)
[2022-09-11] MEDS: ERYTHROMYCIN OPHTH OINT OU SCH ×3 (10:37→20:11)
[2022-09-11] MEDS: RAMELTEON 8 MG TAB (ROZEREM) PO SCH (20:09)
[2022-09-11] MEDS: ATORVASTATIN 20 MG TAB PO SCH (20:10)
[2022-09-12] MEDS: HEPARIN SOD (PORCINE) 5000UNITS/ML 1ML VIAL/SYRINGE SQ SCH ×3 (05:27→21:47)
[2022-09-12 05:49] VITALS: BP 135/61; TEMP 98.4; O2SAT 98
[2022-09-12] MEDS: ASPIRIN 81MG CHEW TABLET PO SCH (10:40)
[2022-09-12] MEDS: levETIRAcetam 250MG TABLET (KEPPRA) PO SCH ×2 (10:41→21:46)
[2022-09-12] MEDS: SENOKOT S TAB PO SCH ×2 (10:41→21:46)
[2022-09-12] MEDS: AMIODARONE 200 MG TAB (PACERONE) PO SCH ×2 (10:41→21:46)
[2022-09-12] MEDS: POTASSIUM CHLORIDE 10MEQ SR TABLET PO SCH ×2 (10:41→21:46)
[2022-09-12] MEDS: OMEPRAZOLE/SODIUM BICARB 20-840MG 10ML ORAL SYRINGE PO SCH (10:41)
[2022-09-12] MEDS: MIRALAX *UNIT DOSE* 17GM PACKET PO SCH ×2 (10:42→21:46)
[2022-09-12] MEDS: FUROSEMIDE 40 MG TAB PO SCH (10:42)
[2022-09-12] MEDS: SANTYL OINT 30GM TOP SCH (10:43)
[2022-09-12] MEDS: ERYTHROMYCIN OPHTH OINT OU SCH ×3 (10:43→21:47)
[2022-09-12] MEDS: MEMANTINE 5MG TABLET (NAMENDA) PO SCH ×2 (10:45→21:45)
[2022-09-12] MEDS: RAMELTEON 8 MG TAB (ROZEREM) PO SCH (21:45)
[2022-09-12] MEDS: ATORVASTATIN 20 MG TAB PO SCH (21:45)
[2022-09-13] MEDS: HEPARIN SOD (PORCINE) 5000UNITS/ML 1ML VIAL/SYRINGE SQ SCH ×3 (05:15→21:09)
[2022-09-13 05:17] VITALS: BP 130/72; TEMP 97.5; O2SAT 95
[2022-09-13] MEDS: ERYTHROMYCIN OPHTH OINT OU SCH ×3 (08:57→21:10)
[2022-09-13] MEDS: OMEPRAZOLE/SODIUM BICARB 20-840MG 10ML ORAL SYRINGE PO SCH (08:57)
[2022-09-13] MEDS: MIRALAX *UNIT DOSE* 17GM PACKET PO SCH ×2 (08:57→21:09)
[2022-09-13] MEDS: ASPIRIN 81MG CHEW TABLET PO SCH (08:58)
[2022-09-13] MEDS: MEMANTINE 5MG TABLET (NAMENDA) PO SCH ×2 (08:58→21:00)
[2022-09-13] MEDS: POTASSIUM CHLORIDE 10MEQ SR TABLET PO SCH ×2 (08:58→21:00)
[2022-09-13] MEDS: AMIODARONE 200 MG TAB (PACERONE) PO SCH ×2 (08:58→21:00)
[2022-09-13] MEDS: SENOKOT S TAB PO SCH ×2 (08:58→21:00)
[2022-09-13] MEDS: FUROSEMIDE 40 MG TAB PO SCH (08:58)
[2022-09-13] MEDS: levETIRAcetam 250MG TABLET (KEPPRA) PO SCH ×2 (08:58→21:00)
[2022-09-13] MEDS: RAMELTEON 8 MG TAB (ROZEREM) PO SCH (21:00)
[2022-09-13] MEDS: ATORVASTATIN 20 MG TAB PO SCH (21:00)
[2022-09-14] MEDS: HEPARIN SOD (PORCINE) 5000UNITS/ML 1ML VIAL/SYRINGE SQ SCH ×3 (05:18→22:05)
[2022-09-14 05:30] VITALS: BP 124/66; TEMP 98.2; O2SAT 94
[2022-09-14] MEDS: FUROSEMIDE 40 MG TAB PO SCH (09:00)
[2022-09-14] MEDS: OMEPRAZOLE/SODIUM BICARB 20-840MG 10ML ORAL SYRINGE PO SCH (09:21)
[2022-09-14] MEDS: MIRALAX *UNIT DOSE* 17GM PACKET PO SCH ×2 (09:21→21:19)
[2022-09-14] MEDS: SENOKOT S TAB PO SCH ×2 (09:22→21:20)
[2022-09-14] MEDS: AMIODARONE 200 MG TAB (PACERONE) PO SCH ×2 (09:22→21:19)
[2022-09-14] MEDS: levETIRAcetam 250MG TABLET (KEPPRA) PO SCH ×2 (09:22→21:19)
[2022-09-14] MEDS: MEMANTINE 5MG TABLET (NAMENDA) PO SCH ×2 (09:22→21:20)
[2022-09-14] MEDS: ASPIRIN 81MG CHEW TABLET PO SCH (09:22)
[2022-09-14] MEDS: ERYTHROMYCIN OPHTH OINT OU SCH ×3 (09:23→21:20)
[2022-09-14] MEDS: POTASSIUM CHLORIDE 10MEQ SR TABLET PO SCH ×2 (09:23→21:20)
[2022-09-14] MEDS: SANTYL OINT 30GM TOP SCH (09:25)
[2022-09-14 09:30] VITALS: BP 113/59
[2022-09-14] MEDS: RAMELTEON 8 MG TAB (ROZEREM) PO SCH (21:19)
[2022-09-14] MEDS: ATORVASTATIN 20 MG TAB PO SCH (21:20)
[2022-09-15 05:33] VITALS: BP 162/72; TEMP 97.2; O2SAT 98
[2022-09-15 05:57] VITALS: BP 138/54
[2022-09-15] MEDS: HEPARIN SOD (PORCINE) 5000UNITS/ML 1ML VIAL/SYRINGE SQ SCH ×3 (06:00→22:12)
[2022-09-15] MEDS: FUROSEMIDE 40 MG TAB PO SCH (09:00)
[2022-09-15] MEDS: SENOKOT S TAB PO SCH ×2 (09:04→22:11)
[2022-09-15] MEDS: ASPIRIN 81MG CHEW TABLET PO SCH (09:04)
[2022-09-15] MEDS: MEMANTINE 5MG TABLET (NAMENDA) PO SCH ×2 (09:04→22:11)
[2022-09-15] MEDS: levETIRAcetam 250MG TABLET (KEPPRA) PO SCH ×2 (09:05→22:11)
[2022-09-15] MEDS: POTASSIUM CHLORIDE 10MEQ SR TABLET PO SCH ×2 (09:05→22:11)
[2022-09-15] MEDS: MIRALAX *UNIT DOSE* 17GM PACKET PO SCH ×2 (09:06→22:11)
[2022-09-15] MEDS: OMEPRAZOLE/SODIUM BICARB 20-840MG 10ML ORAL SYRINGE PO SCH (09:06)
[2022-09-15] MEDS: AMIODARONE 200 MG TAB (PACERONE) PO SCH ×2 (09:09→22:11)
[2022-09-15] MEDS: ERYTHROMYCIN OPHTH OINT OU SCH ×3 (09:09→22:12)
[2022-09-15 09:10] VITALS: BP 108/56
[2022-09-15] MEDS: ATORVASTATIN 20 MG TAB PO SCH (22:10)
[2022-09-15] MEDS: RAMELTEON 8 MG TAB (ROZEREM) PO SCH (22:11)
[2022-09-16] MEDS: HEPARIN SOD (PORCINE) 5000UNITS/ML 1ML VIAL/SYRINGE SQ SCH ×3 (05:31→21:59)
[2022-09-16 06:06] VITALS: BP 112/58; TEMP 98.1; O2SAT 92
[2022-09-16] MEDS: FUROSEMIDE 40 MG TAB PO SCH (09:00)
[2022-09-16] MEDS: SANTYL OINT 30GM TOP SCH (09:00)
[2022-09-16] MEDS: MIRALAX *UNIT DOSE* 17GM PACKET PO SCH ×2 (09:56→21:59)
[2022-09-16] MEDS: ASPIRIN 81MG CHEW TABLET PO SCH (09:56)
[2022-09-16] MEDS: POTASSIUM CHLORIDE 10MEQ SR TABLET PO SCH ×2 (09:56→21:58)
[2022-09-16] MEDS: SENOKOT S TAB PO SCH ×2 (09:56→21:58)
[2022-09-16] MEDS: MEMANTINE 5MG TABLET (NAMENDA) PO SCH ×2 (09:56→21:59)
[2022-09-16] MEDS: OMEPRAZOLE/SODIUM BICARB 20-840MG 10ML ORAL SYRINGE PO SCH (09:57)
[2022-09-16] MEDS: AMIODARONE 200 MG TAB (PACERONE) PO SCH ×2 (09:58→21:58)
[2022-09-16] MEDS: ERYTHROMYCIN OPHTH OINT OU SCH ×3 (09:58→21:59)
[2022-09-16 09:59] VITALS: BP 102/42; O2SAT 94
[2022-09-16] MEDS: levETIRAcetam 250MG TABLET (KEPPRA) PO SCH ×2 (09:59→21:58)
[2022-09-16] MEDS: ATORVASTATIN 20 MG TAB PO SCH (21:58)
[2022-09-16] MEDS: RAMELTEON 8 MG TAB (ROZEREM) PO SCH (21:58)
[2022-09-17 05:22] VITALS: BP 121/55; TEMP 98.2; O2SAT 95
[2022-09-17] MEDS: HEPARIN SOD (PORCINE) 5000UNITS/ML 1ML VIAL/SYRINGE SQ SCH ×3 (06:04→21:56)
[2022-09-17] MEDS: POTASSIUM CHLORIDE 10MEQ SR TABLET PO SCH ×2 (10:12→21:56)
[2022-09-17] MEDS: MEMANTINE 5MG TABLET (NAMENDA) PO SCH ×2 (10:12→21:56)
[2022-09-17] MEDS: ASPIRIN 81MG CHEW TABLET PO SCH (10:12)
[2022-09-17] MEDS: FUROSEMIDE 40 MG TAB PO SCH (10:12)
[2022-09-17] MEDS: SENOKOT S TAB PO SCH ×2 (10:12→21:56)
[2022-09-17] MEDS: MIRALAX *UNIT DOSE* 17GM PACKET PO SCH ×2 (10:13→21:57)
[2022-09-17] MEDS: ERYTHROMYCIN OPHTH OINT OU SCH ×3 (10:13→21:57)
[2022-09-17] MEDS: AMIODARONE 200 MG TAB (PACERONE) PO SCH ×2 (10:13→21:57)
[2022-09-17] MEDS: levETIRAcetam 250MG TABLET (KEPPRA) PO SCH ×2 (10:13→21:56)
[2022-09-17] MEDS: OMEPRAZOLE/SODIUM BICARB 20-840MG 10ML ORAL SYRINGE PO SCH (15:16)
[2022-09-17] MEDS: RAMELTEON 8 MG TAB (ROZEREM) PO SCH (21:56)
[2022-09-17] MEDS: ATORVASTATIN 20 MG TAB PO SCH (21:56)
[2022-09-18 06:00] VITALS: BP 170/74; TEMP 98.1; O2SAT 97
[2022-09-18] MEDS: HEPARIN SOD (PORCINE) 5000UNITS/ML 1ML VIAL/SYRINGE SQ SCH ×3 (06:10→21:54)
[2022-09-18 06:52] VITALS: BP 126/56
[2022-09-18 08:28] LABS: CALCIUM LEVEL 9.2 MG/DL (8.3-10.6); CREATININE FOR GFR 1.29 MG/DL (0.70-1.30); GLOMERULAR FILTRATION RATE 56.8 (>35); POTASSIUM SERUM 4.3 MMOL/L (3.5-5.1)
[2022-09-18] MEDS: FUROSEMIDE 40 MG TAB PO SCH (09:00)
[2022-09-18] MEDS: OMEPRAZOLE/SODIUM BICARB 20-840MG 10ML ORAL SYRINGE PO SCH (09:43)
[2022-09-18] MEDS: MIRALAX *UNIT DOSE* 17GM PACKET PO SCH ×2 (09:43→21:54)
[2022-09-18] MEDS: SENOKOT S TAB PO SCH ×2 (09:43→21:54)
[2022-09-18] MEDS: levETIRAcetam 250MG TABLET (KEPPRA) PO SCH ×2 (09:43→21:53)
[2022-09-18] MEDS: POTASSIUM CHLORIDE 10MEQ SR TABLET PO SCH ×2 (09:44→21:54)
[2022-09-18] MEDS: AMIODARONE 200 MG TAB (PACERONE) PO SCH ×2 (09:44→21:53)
[2022-09-18] MEDS: ASPIRIN 81MG CHEW TABLET PO SCH (09:44)
[2022-09-18] MEDS: MEMANTINE 5MG TABLET (NAMENDA) PO SCH ×2 (09:44→21:54)
[2022-09-18] MEDS: ERYTHROMYCIN OPHTH OINT OU SCH (09:45)
[2022-09-18] MEDS: SANTYL OINT 30GM TOP SCH (09:45)
[2022-09-18] MEDS: RAMELTEON 8 MG TAB (ROZEREM) PO SCH (21:54)
[2022-09-18] MEDS: ATORVASTATIN 20 MG TAB PO SCH (21:54)
[2022-09-19] MEDS: HEPARIN SOD (PORCINE) 5000UNITS/ML 1ML VIAL/SYRINGE SQ SCH ×3 (05:39→21:44)
[2022-09-19 05:43] VITALS: BP 138/88; TEMP 97.7; O2SAT 95
[2022-09-19] MEDS: MEMANTINE 5MG TABLET (NAMENDA) PO SCH ×2 (08:43→21:45)
[2022-09-19] MEDS: SENOKOT S TAB PO SCH ×2 (08:43→21:44)
[2022-09-19] MEDS: levETIRAcetam 250MG TABLET (KEPPRA) PO SCH ×2 (08:43→21:45)
[2022-09-19] MEDS: MIRALAX *UNIT DOSE* 17GM PACKET PO SCH ×2 (08:44→21:44)
[2022-09-19] MEDS: POTASSIUM CHLORIDE 10MEQ SR TABLET PO SCH ×2 (08:44→21:45)
[2022-09-19] MEDS: ASPIRIN 81MG CHEW TABLET PO SCH (08:44)
[2022-09-19] MEDS: AMIODARONE 200 MG TAB (PACERONE) PO SCH ×2 (08:44→21:45)
[2022-09-19] MEDS: FUROSEMIDE 40 MG TAB PO SCH (08:47)
[2022-09-19 08:53] VITALS: BP 122/58
[2022-09-19] MEDS: OMEPRAZOLE/SODIUM BICARB 20-840MG 10ML ORAL SYRINGE PO SCH (09:09)
[2022-09-19] MEDS: POLYVINYL ALCOHOL OPHTH SOLN 15ML (LIQUITEARS) OS PRN (14:30)
[2022-09-19 18:20] VITALS: BP 122/60; TEMP 97.7; O2SAT 96
[2022-09-19] MEDS: RAMELTEON 8 MG TAB (ROZEREM) PO SCH (21:45)
[2022-09-19] MEDS: ATORVASTATIN 20 MG TAB PO SCH (21:45)
[2022-09-19 22:00] VITALS: BP 128/68; TEMP 97.9; O2SAT 96
[2022-09-20] MEDS: HEPARIN SOD (PORCINE) 5000UNITS/ML 1ML VIAL/SYRINGE SQ SCH ×3 (05:02→20:27)
[2022-09-20 06:30] VITALS: BP 126/62; TEMP 98.1
[2022-09-20] MEDS: MIRALAX *UNIT DOSE* 17GM PACKET PO SCH ×2 (09:00→20:27)
[2022-09-20] MEDS: OMEPRAZOLE/SODIUM BICARB 20-840MG 10ML ORAL SYRINGE PO SCH (09:49)
[2022-09-20] MEDS: SENOKOT S TAB PO SCH ×2 (09:49→20:27)
[2022-09-20] MEDS: ASPIRIN 81MG CHEW TABLET PO SCH (09:49)
[2022-09-20] MEDS: POTASSIUM CHLORIDE 10MEQ SR TABLET PO SCH ×2 (09:50→20:27)
[2022-09-20] MEDS: MEMANTINE 5MG TABLET (NAMENDA) PO SCH ×2 (09:50→20:27)
[2022-09-20] MEDS: levETIRAcetam 250MG TABLET (KEPPRA) PO SCH ×2 (09:50→20:26)
[2022-09-20] MEDS: FUROSEMIDE 40 MG TAB PO SCH (09:50)
[2022-09-20] MEDS: AMIODARONE 200 MG TAB (PACERONE) PO SCH ×2 (09:50→20:27)
[2022-09-20] MEDS: POLYVINYL ALCOHOL OPHTH SOLN 15ML (LIQUITEARS) OS PRN ×2 (09:51→20:34)
[2022-09-20] MEDS: SANTYL OINT 30GM TOP SCH (09:51)
[2022-09-20] MEDS: ATORVASTATIN 20 MG TAB PO SCH (20:26)
[2022-09-20] MEDS: RAMELTEON 8 MG TAB (ROZEREM) PO SCH (20:27)
[2022-09-21 06:00] VITALS: BP 130/70; TEMP 98.6; O2SAT 93
[2022-09-21] MEDS: HEPARIN SOD (PORCINE) 5000UNITS/ML 1ML VIAL/SYRINGE SQ SCH ×3 (06:19→21:28)
[2022-09-21] MEDS: levETIRAcetam 250MG TABLET (KEPPRA) PO SCH ×2 (08:09→21:27)
[2022-09-21] MEDS: AMIODARONE 200 MG TAB (PACERONE) PO SCH ×2 (08:10→21:27)
[2022-09-21] MEDS: MEMANTINE 5MG TABLET (NAMENDA) PO SCH ×2 (08:10→21:27)
[2022-09-21] MEDS: POTASSIUM CHLORIDE 10MEQ SR TABLET PO SCH ×2 (08:10→21:27)
[2022-09-21] MEDS: FUROSEMIDE 40 MG TAB PO SCH (08:11)
[2022-09-21] MEDS: SENOKOT S TAB PO SCH ×2 (08:12→21:27)
[2022-09-21] MEDS: ASPIRIN 81MG CHEW TABLET PO SCH (08:12)
[2022-09-21] MEDS: OMEPRAZOLE/SODIUM BICARB 20-840MG 10ML ORAL SYRINGE PO SCH (08:12)
[2022-09-21] MEDS: MIRALAX *UNIT DOSE* 17GM PACKET PO SCH ×2 (08:12→21:27)
[2022-09-21] MEDS: ATORVASTATIN 20 MG TAB PO SCH (21:27)
[2022-09-21] MEDS: RAMELTEON 8 MG TAB (ROZEREM) PO SCH (21:27)
[2022-09-22 04:00] VITALS: BP 137/67; TEMP 98.8; O2SAT 95
[2022-09-22] MEDS: HEPARIN SOD (PORCINE) 5000UNITS/ML 1ML VIAL/SYRINGE SQ SCH ×3 (05:01→20:44)
[2022-09-22] MEDS: SANTYL OINT 30GM TOP SCH (08:51)
[2022-09-22] MEDS: SENOKOT S TAB PO SCH ×2 (08:57→20:51)
[2022-09-22] MEDS: AMIODARONE 200 MG TAB (PACERONE) PO SCH ×2 (08:57→20:51)
[2022-09-22] MEDS: OMEPRAZOLE/SODIUM BICARB 20-840MG 10ML ORAL SYRINGE PO SCH (08:57)
[2022-09-22] MEDS: ASPIRIN 81MG CHEW TABLET PO SCH (08:58)
[2022-09-22] MEDS: MEMANTINE 5MG TABLET (NAMENDA) PO SCH ×2 (08:58→20:51)
[2022-09-22] MEDS: FUROSEMIDE 40 MG TAB PO SCH (08:58)
[2022-09-22] MEDS: POTASSIUM CHLORIDE 10MEQ SR TABLET PO SCH ×2 (08:58→20:51)
[2022-09-22] MEDS: MIRALAX *UNIT DOSE* 17GM PACKET PO SCH ×2 (08:58→20:44)
[2022-09-22] MEDS: levETIRAcetam 250MG TABLET (KEPPRA) PO SCH ×2 (08:58→20:50)
[2022-09-22] MEDS: RAMELTEON 8 MG TAB (ROZEREM) PO SCH (20:51)
[2022-09-22] MEDS: ATORVASTATIN 20 MG TAB PO SCH (20:51)
[2022-09-23] MEDS: HEPARIN SOD (PORCINE) 5000UNITS/ML 1ML VIAL/SYRINGE SQ SCH ×3 (05:19→20:55)
[2022-09-23 06:40] VITALS: BP 149/68; TEMP 98.1; O2SAT 97
[2022-09-23] MEDS: OMEPRAZOLE/SODIUM BICARB 20-840MG 10ML ORAL SYRINGE PO SCH (09:00)
[2022-09-23] MEDS: AMIODARONE 200 MG TAB (PACERONE) PO SCH ×2 (10:39→20:41)
[2022-09-23] MEDS: POTASSIUM CHLORIDE 10MEQ SR TABLET PO SCH ×2 (10:39→20:41)
[2022-09-23] MEDS: FUROSEMIDE 40 MG TAB PO SCH (10:39)
[2022-09-23] MEDS: MIRALAX *UNIT DOSE* 17GM PACKET PO SCH ×2 (10:40→20:46)
[2022-09-23] MEDS: levETIRAcetam 250MG TABLET (KEPPRA) PO SCH ×2 (10:40→20:42)
[2022-09-23] MEDS: MEMANTINE 5MG TABLET (NAMENDA) PO SCH ×2 (10:40→20:41)
[2022-09-23] MEDS: SENOKOT S TAB PO SCH ×2 (10:40→20:41)
[2022-09-23] MEDS: ASPIRIN 81MG CHEW TABLET PO SCH (10:41)
[2022-09-23] MEDS: ATORVASTATIN 20 MG TAB PO SCH (20:46)
[2022-09-23] MEDS: RAMELTEON 8 MG TAB (ROZEREM) PO SCH (20:46)
[2022-09-24 04:50] VITALS: BP 118/44; TEMP 98.2; O2SAT 94
[2022-09-24] MEDS: HEPARIN SOD (PORCINE) 5000UNITS/ML 1ML VIAL/SYRINGE SQ SCH ×3 (08:18→21:03)
[2022-09-24] MEDS: levETIRAcetam 250MG TABLET (KEPPRA) PO SCH ×2 (08:18→21:03)
[2022-09-24] MEDS: OMEPRAZOLE/SODIUM BICARB 20-840MG 10ML ORAL SYRINGE PO SCH (08:18)
[2022-09-24] MEDS: SENOKOT S TAB PO SCH ×2 (08:18→21:03)
[2022-09-24] MEDS: POTASSIUM CHLORIDE 10MEQ SR TABLET PO SCH ×2 (08:18→21:03)
[2022-09-24] MEDS: FUROSEMIDE 40 MG TAB PO SCH (08:19)
[2022-09-24] MEDS: ASPIRIN 81MG CHEW TABLET PO SCH (08:19)
[2022-09-24] MEDS: MEMANTINE 5MG TABLET (NAMENDA) PO SCH ×2 (08:19→21:02)
[2022-09-24] MEDS: AMIODARONE 200 MG TAB (PACERONE) PO SCH ×2 (08:19→21:02)
[2022-09-24] MEDS: SANTYL OINT 30GM TOP SCH (08:20)
[2022-09-24] MEDS: MIRALAX *UNIT DOSE* 17GM PACKET PO SCH ×2 (08:20→21:04)
[2022-09-24] MEDS: RAMELTEON 8 MG TAB (ROZEREM) PO SCH (21:02)
[2022-09-24] MEDS: ATORVASTATIN 20 MG TAB PO SCH (21:03)
[2022-09-25 01:00] VITALS: BP 132/56
[2022-09-25 04:20] VITALS: BP 138/56; TEMP 97.9; O2SAT 97
[2022-09-25] MEDS: HEPARIN SOD (PORCINE) 5000UNITS/ML 1ML VIAL/SYRINGE SQ SCH ×3 (05:27→21:03)
[2022-09-25] MEDS: AMIODARONE 200 MG TAB (PACERONE) PO SCH ×2 (10:11→21:02)
[2022-09-25] MEDS: FUROSEMIDE 40 MG TAB PO SCH (10:11)
[2022-09-25] MEDS: ASPIRIN 81MG CHEW TABLET PO SCH (10:12)
[2022-09-25] MEDS: MIRALAX *UNIT DOSE* 17GM PACKET PO SCH ×2 (10:12→21:02)
[2022-09-25] MEDS: levETIRAcetam 250MG TABLET (KEPPRA) PO SCH ×2 (10:12→21:03)
[2022-09-25] MEDS: OMEPRAZOLE/SODIUM BICARB 20-840MG 10ML ORAL SYRINGE PO SCH (10:12)
[2022-09-25] MEDS: SENOKOT S TAB PO SCH ×2 (10:13→21:03)
[2022-09-25] MEDS: MEMANTINE 5MG TABLET (NAMENDA) PO SCH ×2 (10:13→21:03)
[2022-09-25] MEDS: POTASSIUM CHLORIDE 10MEQ SR TABLET PO SCH ×2 (10:13→21:03)
[2022-09-25] MEDS: RAMELTEON 8 MG TAB (ROZEREM) PO SCH (21:02)
[2022-09-25] MEDS: ATORVASTATIN 20 MG TAB PO SCH (21:02)
[2022-09-26 04:40] VITALS: BP 120/60; TEMP 97.7; O2SAT 95
[2022-09-26] MEDS: HEPARIN SOD (PORCINE) 5000UNITS/ML 1ML VIAL/SYRINGE SQ SCH ×3 (05:11→20:28)
[2022-09-26] MEDS: OMEPRAZOLE/SODIUM BICARB 20-840MG 10ML ORAL SYRINGE PO SCH (10:51)
[2022-09-26] MEDS: MIRALAX *UNIT DOSE* 17GM PACKET PO SCH ×2 (10:51→20:17)
[2022-09-26] MEDS: FUROSEMIDE 40 MG TAB PO SCH (10:51)
[2022-09-26] MEDS: ASPIRIN 81MG CHEW TABLET PO SCH (10:51)
[2022-09-26] MEDS: MEMANTINE 5MG TABLET (NAMENDA) PO SCH ×2 (10:51→20:22)
[2022-09-26] MEDS: AMIODARONE 200 MG TAB (PACERONE) PO SCH ×2 (10:52→20:28)
[2022-09-26] MEDS: POTASSIUM CHLORIDE 10MEQ SR TABLET PO SCH ×2 (10:52→20:22)
[2022-09-26] MEDS: levETIRAcetam 250MG TABLET (KEPPRA) PO SCH ×2 (10:52→20:22)
[2022-09-26] MEDS: SENOKOT S TAB PO SCH ×2 (10:52→20:22)
[2022-09-26] MEDS: ATORVASTATIN 20 MG TAB PO SCH (20:22)
[2022-09-26] MEDS: RAMELTEON 8 MG TAB (ROZEREM) PO SCH (20:22)
[2022-09-26 21:00] VITALS: BP 110/54; TEMP 97.9; O2SAT 92
[2022-09-27] MEDS: HEPARIN SOD (PORCINE) 5000UNITS/ML 1ML VIAL/SYRINGE SQ SCH ×3 (05:12→20:45)
[2022-09-27 05:17] VITALS: BP 108/60; TEMP 98.1; O2SAT 94
[2022-09-27] MEDS: MIRALAX *UNIT DOSE* 17GM PACKET PO SCH ×2 (10:07→20:44)
[2022-09-27] MEDS: MEMANTINE 5MG TABLET (NAMENDA) PO SCH ×2 (10:07→20:43)
[2022-09-27] MEDS: SENOKOT S TAB PO SCH ×2 (10:07→20:44)
[2022-09-27] MEDS: ASPIRIN 81MG CHEW TABLET PO SCH (10:07)
[2022-09-27] MEDS: AMIODARONE 200 MG TAB (PACERONE) PO SCH ×2 (10:07→20:44)
[2022-09-27] MEDS: levETIRAcetam 250MG TABLET (KEPPRA) PO SCH ×2 (10:08→20:43)
[2022-09-27] MEDS: FUROSEMIDE 40 MG TAB PO SCH (10:08)
[2022-09-27] MEDS: POTASSIUM CHLORIDE 10MEQ SR TABLET PO SCH ×2 (10:09→20:43)
[2022-09-27 10:12] VITALS: BP 124/72
[2022-09-27] MEDS: OMEPRAZOLE/SODIUM BICARB 20-840MG 10ML ORAL SYRINGE PO SCH (10:20)
[2022-09-27] MEDS: ATORVASTATIN 20 MG TAB PO SCH (20:44)
[2022-09-27] MEDS: RAMELTEON 8 MG TAB (ROZEREM) PO SCH (20:44)
[2022-09-28 05:08] VITALS: BP 118/58; TEMP 97.9; O2SAT 97
[2022-09-28] MEDS: HEPARIN SOD (PORCINE) 5000UNITS/ML 1ML VIAL/SYRINGE SQ SCH ×3 (05:08→21:11)
[2022-09-28] MEDS: FUROSEMIDE 40 MG TAB PO SCH (09:00)
[2022-09-28] MEDS: SENOKOT S TAB PO SCH ×2 (09:00→19:37)
[2022-09-28] MEDS: MIRALAX *UNIT DOSE* 17GM PACKET PO SCH ×2 (09:00→19:45)
[2022-09-28 10:15] VITALS: BP 115/62
[2022-09-28] MEDS: ASPIRIN 81MG CHEW TABLET PO SCH (10:20)
[2022-09-28] MEDS: MEMANTINE 5MG TABLET (NAMENDA) PO SCH ×2 (10:21→19:38)
[2022-09-28] MEDS: POTASSIUM CHLORIDE 10MEQ SR TABLET PO SCH ×2 (10:21→19:38)
[2022-09-28] MEDS: levETIRAcetam 250MG TABLET (KEPPRA) PO SCH ×2 (10:22→19:37)
[2022-09-28] MEDS: AMIODARONE 200 MG TAB (PACERONE) PO SCH ×2 (10:22→19:40)
[2022-09-28] MEDS: OMEPRAZOLE/SODIUM BICARB 20-840MG 10ML ORAL SYRINGE PO SCH (10:22)
[2022-09-28] MEDS: RAMELTEON 8 MG TAB (ROZEREM) PO SCH (19:37)
[2022-09-28] MEDS: ATORVASTATIN 20 MG TAB PO SCH (19:37)
[2022-09-29 05:12] VITALS: BP 134/60; TEMP 98.6; O2SAT 97
[2022-09-29] MEDS: HEPARIN SOD (PORCINE) 5000UNITS/ML 1ML VIAL/SYRINGE SQ SCH ×3 (05:16→20:19)
[2022-09-29] MEDS: MIRALAX *UNIT DOSE* 17GM PACKET PO SCH ×2 (09:00→20:20)
[2022-09-29] MEDS: SENOKOT S TAB PO SCH ×2 (09:00→20:19)
[2022-09-29] MEDS: OMEPRAZOLE/SODIUM BICARB 20-840MG 10ML ORAL SYRINGE PO SCH (09:15)
[2022-09-29] MEDS: POTASSIUM CHLORIDE 10MEQ SR TABLET PO SCH ×2 (09:15→20:19)
[2022-09-29] MEDS: ASPIRIN 81MG CHEW TABLET PO SCH (09:16)
[2022-09-29] MEDS: MEMANTINE 5MG TABLET (NAMENDA) PO SCH ×2 (09:16→20:19)
[2022-09-29] MEDS: levETIRAcetam 250MG TABLET (KEPPRA) PO SCH ×2 (09:16→20:19)
[2022-09-29] MEDS: FUROSEMIDE 40 MG TAB PO SCH (09:16)
[2022-09-29] MEDS: AMIODARONE 200 MG TAB (PACERONE) PO SCH ×2 (09:16→20:19)
[2022-09-29] MEDS: RAMELTEON 8 MG TAB (ROZEREM) PO SCH (20:19)
[2022-09-29] MEDS: ATORVASTATIN 20 MG TAB PO SCH (20:19)
[2022-09-30 04:20] VITALS: BP 130/56; TEMP 98.2; O2SAT 97
[2022-09-30] MEDS: HEPARIN SOD (PORCINE) 5000UNITS/ML 1ML VIAL/SYRINGE SQ SCH (05:07)
[2022-09-30] MEDS: MEMANTINE 5MG TABLET (NAMENDA) PO SCH ×2 (08:28→22:01)
[2022-09-30] MEDS: ASPIRIN 81MG CHEW TABLET PO SCH (08:28)
[2022-09-30] MEDS: SENOKOT S TAB PO SCH ×2 (08:28→22:02)
[2022-09-30] MEDS: POTASSIUM CHLORIDE 10MEQ SR TABLET PO SCH ×2 (08:28→22:00)
[2022-09-30] MEDS: AMIODARONE 200 MG TAB (PACERONE) PO SCH ×2 (08:28→22:02)
[2022-09-30] MEDS: FUROSEMIDE 40 MG TAB PO SCH (08:29)
[2022-09-30] MEDS: MIRALAX *UNIT DOSE* 17GM PACKET PO SCH ×2 (08:29→21:00)
[2022-09-30] MEDS: levETIRAcetam 250MG TABLET (KEPPRA) PO SCH ×2 (08:29→21:59)
[2022-09-30] MEDS: OMEPRAZOLE/SODIUM BICARB 20-840MG 10ML ORAL SYRINGE PO SCH (09:00)
[2022-09-30 13:47] LABS: BASO % 0.5 % (0.0-1.0); EOS # 0.1 10^3/uL (0.0-0.5); EOS % 0.9 % (0.0-3.0); HEMATOCRIT 38.3 % (42.0-52.0); HEMOGLOBIN 12.7 g/dl (13.5-17.5); LYMPH # 2.6 10^3/uL (1.5-5.0); LYMPH % 35.4 % (24.0-44.0); MEAN CORPUSCULAR HEMOGLOBIN 30.8 pg (27.0-33.0); MEAN CORPUSCULAR HGB CONC 33.2 g/dl (32.0-36.5); MONO # 0.6 10^3/uL (0.0-0.8); MONO % 8.6 % (2.0-8.0); NEUTROPHILS % 54.3 % (36.0-66.0); PLATELET COUNT, AUTOMATED 183 10^3/uL (150-450); RED BLOOD COUNT 4.12 10^6/uL (4.30-6.10); WHITE BLOOD COUNT 7.4 10^3/uL (4.0-10.0)
[2022-09-30 14:06] LABS: INR 1.09; PARTIAL THROMBOPLASTIN TIME 31.8 SECONDS (24.8-34.2); PROTHROMBIN TIME 13.8 SECONDS (12.5-14.5)
[2022-09-30 14:08] LABS: CALCIUM LEVEL 9.2 MG/DL (8.3-10.6); CREATININE FOR GFR 1.3 MG/DL (0.70-1.30); GLOMERULAR FILTRATION RATE 56.3 (>35); POTASSIUM SERUM 4.1 MMOL/L (3.5-5.1)
[2022-09-30] MEDS: RAMELTEON 8 MG TAB (ROZEREM) PO SCH (22:01)
[2022-09-30] MEDS: ATORVASTATIN 20 MG TAB PO SCH (22:02)
[2022-10-01 06:12] VITALS: BP 150/64; TEMP 97.9; O2SAT 93
[2022-10-01] MEDS: AMIODARONE 200 MG TAB (PACERONE) PO SCH ×2 (10:16→20:34)
[2022-10-01] MEDS: SENOKOT S TAB PO SCH ×2 (10:16→20:35)
[2022-10-01] MEDS: MEMANTINE 5MG TABLET (NAMENDA) PO SCH ×2 (10:17→20:35)
[2022-10-01] MEDS: ASPIRIN 81MG CHEW TABLET PO SCH (10:17)
[2022-10-01] MEDS: POTASSIUM CHLORIDE 10MEQ SR TABLET PO SCH ×2 (10:17→20:34)
[2022-10-01] MEDS: FUROSEMIDE 20 MG TAB PO SCH (10:18)
[2022-10-01] MEDS: levETIRAcetam 250MG TABLET (KEPPRA) PO SCH ×2 (10:18→20:35)
[2022-10-01] MEDS: OMEPRAZOLE/SODIUM BICARB 20-840MG 10ML ORAL SYRINGE PO SCH (10:19)
[2022-10-01] MEDS: MIRALAX *UNIT DOSE* 17GM PACKET PO SCH ×2 (10:19→21:00)
[2022-10-01] MEDS: RIVAROXABAN 10MG TAB (XARELTO) PO SCH (18:54)
[2022-10-01] MEDS: RAMELTEON 8 MG TAB (ROZEREM) PO SCH (20:35)
[2022-10-01] MEDS: ATORVASTATIN 20 MG TAB PO SCH (20:35)
[2022-10-02 05:00] VITALS: BP 110/50; TEMP 97.7; O2SAT 96
[2022-10-02] MEDS: OMEPRAZOLE/SODIUM BICARB 20-840MG 10ML ORAL SYRINGE PO SCH (09:00)
[2022-10-02] MEDS: levETIRAcetam 250MG TABLET (KEPPRA) PO SCH ×2 (10:07→21:04)
[2022-10-02] MEDS: SENOKOT S TAB PO SCH ×2 (10:07→21:04)
[2022-10-02] MEDS: ASPIRIN 81MG CHEW TABLET PO SCH (10:08)
[2022-10-02] MEDS: POTASSIUM CHLORIDE 10MEQ SR TABLET PO SCH ×2 (10:08→21:04)
[2022-10-02] MEDS: MEMANTINE 5MG TABLET (NAMENDA) PO SCH ×2 (10:08→21:04)
[2022-10-02] MEDS: FUROSEMIDE 20 MG TAB PO SCH (10:09)
[2022-10-02] MEDS: MIRALAX *UNIT DOSE* 17GM PACKET PO SCH ×2 (10:09→21:00)
[2022-10-02] MEDS: AMIODARONE 200 MG TAB (PACERONE) PO SCH ×2 (10:09→21:03)
[2022-10-02] MEDS: RIVAROXABAN 10MG TAB (XARELTO) PO SCH (18:00)
[2022-10-02] MEDS: ATORVASTATIN 20 MG TAB PO SCH (21:03)
[2022-10-02] MEDS: RAMELTEON 8 MG TAB (ROZEREM) PO SCH (21:03)
[2022-10-03 06:45] VITALS: BP 138/68; TEMP 97.5; O2SAT 96
[2022-10-03] MEDS: MIRALAX *UNIT DOSE* 17GM PACKET PO SCH ×2 (09:11→20:31)
[2022-10-03] MEDS: OMEPRAZOLE/SODIUM BICARB 20-840MG 10ML ORAL SYRINGE PO SCH (09:11)
[2022-10-03] MEDS: FUROSEMIDE 20 MG TAB PO SCH (09:12)
[2022-10-03] MEDS: MEMANTINE 5MG TABLET (NAMENDA) PO SCH ×2 (09:12→20:33)
[2022-10-03] MEDS: SENOKOT S TAB PO SCH ×2 (09:12→20:34)
[2022-10-03] MEDS: POTASSIUM CHLORIDE 10MEQ SR TABLET PO SCH ×2 (09:12→20:32)
[2022-10-03] MEDS: levETIRAcetam 250MG TABLET (KEPPRA) PO SCH ×2 (09:12→20:32)
[2022-10-03] MEDS: ASPIRIN 81MG CHEW TABLET PO SCH (09:12)
[2022-10-03] MEDS: AMIODARONE 200 MG TAB (PACERONE) PO SCH ×2 (09:16→20:32)
[2022-10-03] MEDS: ACETAMINOPHEN TAB 650MG DOSE (2X325MG) PO PRN (15:28)
[2022-10-03] MEDS: RIVAROXABAN 10MG TAB (XARELTO) PO SCH (17:08)
[2022-10-03] MEDS: RAMELTEON 8 MG TAB (ROZEREM) PO SCH (20:31)
[2022-10-03] MEDS: ATORVASTATIN 20 MG TAB PO SCH (20:32)
[2022-10-04 04:40] VITALS: BP 132/58; TEMP 97.7; O2SAT 96
[2022-10-04] MEDS: MIRALAX *UNIT DOSE* 17GM PACKET PO SCH ×2 (10:42→20:39)
[2022-10-04] MEDS: OMEPRAZOLE/SODIUM BICARB 20-840MG 10ML ORAL SYRINGE PO SCH (10:42)
[2022-10-04] MEDS: AMIODARONE 200 MG TAB (PACERONE) PO SCH ×2 (10:43→20:40)
[2022-10-04] MEDS: FUROSEMIDE 20 MG TAB PO SCH (10:43)
[2022-10-04] MEDS: ASPIRIN 81MG CHEW TABLET PO SCH (10:43)
[2022-10-04] MEDS: POTASSIUM CHLORIDE 10MEQ SR TABLET PO SCH ×2 (10:43→20:40)
[2022-10-04] MEDS: levETIRAcetam 250MG TABLET (KEPPRA) PO SCH ×2 (10:43→20:40)
[2022-10-04] MEDS: MEMANTINE 5MG TABLET (NAMENDA) PO SCH ×2 (10:43→20:40)
[2022-10-04] MEDS: SENOKOT S TAB PO SCH ×2 (10:44→20:40)
[2022-10-04] MEDS: RIVAROXABAN 10MG TAB (XARELTO) PO SCH (18:08)
[2022-10-04] MEDS: ATORVASTATIN 20 MG TAB PO SCH (20:40)
[2022-10-04] MEDS: RAMELTEON 8 MG TAB (ROZEREM) PO SCH (20:40)
[2022-10-05 05:20] VITALS: BP 142/66; TEMP 97.7; O2SAT 96
[2022-10-05] MEDS: MIRALAX *UNIT DOSE* 17GM PACKET PO SCH ×2 (10:49→19:41)
[2022-10-05] MEDS: levETIRAcetam 250MG TABLET (KEPPRA) PO SCH ×2 (10:50→19:40)
[2022-10-05] MEDS: FUROSEMIDE 20 MG TAB PO SCH (10:50)
[2022-10-05] MEDS: SENOKOT S TAB PO SCH ×2 (10:50→19:41)
[2022-10-05] MEDS: OMEPRAZOLE/SODIUM BICARB 20-840MG 10ML ORAL SYRINGE PO SCH (10:50)
[2022-10-05] MEDS: AMIODARONE 200 MG TAB (PACERONE) PO SCH ×2 (10:50→19:44)
[2022-10-05] MEDS: POTASSIUM CHLORIDE 10MEQ SR TABLET PO SCH ×2 (10:51→19:41)
[2022-10-05] MEDS: MEMANTINE 5MG TABLET (NAMENDA) PO SCH ×2 (10:51→19:41)
[2022-10-05] MEDS: ASPIRIN 81MG CHEW TABLET PO SCH (10:51)
[2022-10-05] MEDS: RIVAROXABAN 10MG TAB (XARELTO) PO SCH (17:10)
[2022-10-05] MEDS: RAMELTEON 8 MG TAB (ROZEREM) PO SCH (19:40)
[2022-10-05] MEDS: ATORVASTATIN 20 MG TAB PO SCH (19:41)
[2022-10-06 06:00] VITALS: BP 122/60; TEMP 97.7; O2SAT 96
[2022-10-06] MEDS: OMEPRAZOLE/SODIUM BICARB 20-840MG 10ML ORAL SYRINGE PO SCH (09:20)
[2022-10-06] MEDS: SENOKOT S TAB PO SCH ×2 (09:20→20:08)
[2022-10-06] MEDS: MIRALAX *UNIT DOSE* 17GM PACKET PO SCH ×2 (09:20→20:17)
[2022-10-06] MEDS: AMIODARONE 200 MG TAB (PACERONE) PO SCH ×2 (09:20→20:08)
[2022-10-06] MEDS: POTASSIUM CHLORIDE 10MEQ SR TABLET PO SCH ×2 (09:20→20:08)
[2022-10-06] MEDS: ASPIRIN 81MG CHEW TABLET PO SCH (09:20)
[2022-10-06] MEDS: MEMANTINE 5MG TABLET (NAMENDA) PO SCH ×2 (09:20→20:08)
[2022-10-06] MEDS: levETIRAcetam 250MG TABLET (KEPPRA) PO SCH ×2 (09:20→20:08)
[2022-10-06] MEDS: ACETAMINOPHEN TAB 650MG DOSE (2X325MG) PO PRN (09:21)
[2022-10-06] MEDS: FUROSEMIDE 20 MG TAB PO SCH (09:22)
[2022-10-06] MEDS ORDERED: QUEtiapine FUMARATE 12.5 MG HALF-TAB PO ONE (15:05)
[2022-10-06] MEDS: RIVAROXABAN 10MG TAB (XARELTO) PO SCH (17:11)
[2022-10-06] MEDS: RAMELTEON 8 MG TAB (ROZEREM) PO SCH (20:08)
[2022-10-06] MEDS: ATORVASTATIN 20 MG TAB PO SCH (20:09)
[2022-10-07 05:06] VITALS: BP 118/60; TEMP 98.4; O2SAT 96
[2022-10-07] MEDS: OMEPRAZOLE/SODIUM BICARB 20-840MG 10ML ORAL SYRINGE PO SCH (09:59)
[2022-10-07] MEDS: MIRALAX *UNIT DOSE* 17GM PACKET PO SCH ×2 (09:59→20:31)
[2022-10-07] MEDS: AMIODARONE 200 MG TAB (PACERONE) PO SCH ×2 (10:00→20:22)
[2022-10-07] MEDS: levETIRAcetam 250MG TABLET (KEPPRA) PO SCH ×2 (10:00→20:22)
[2022-10-07] MEDS: FUROSEMIDE 20 MG TAB PO SCH (10:00)
[2022-10-07] MEDS: POTASSIUM CHLORIDE 10MEQ SR TABLET PO SCH ×2 (10:00→20:23)
[2022-10-07] MEDS: SENOKOT S TAB PO SCH ×2 (10:00→20:23)
[2022-10-07] MEDS: ASPIRIN 81MG CHEW TABLET PO SCH (10:00)
[2022-10-07] MEDS: MEMANTINE 5MG TABLET (NAMENDA) PO SCH ×2 (10:00→20:23)
[2022-10-07 10:01] VITALS: BP 128/62
[2022-10-07] MEDS: RIVAROXABAN 10MG TAB (XARELTO) PO SCH (18:03)
[2022-10-07] MEDS: RAMELTEON 8 MG TAB (ROZEREM) PO SCH (20:22)
[2022-10-07] MEDS: ATORVASTATIN 20 MG TAB PO SCH (20:22)
[2022-10-08 06:00] VITALS: BP 117/56; TEMP 98.1; O2SAT 96
[2022-10-08] MEDS: SENOKOT S TAB PO SCH ×2 (09:50→21:03)
[2022-10-08] MEDS: MEMANTINE 5MG TABLET (NAMENDA) PO SCH ×2 (09:50→21:03)
[2022-10-08] MEDS: AMIODARONE 200 MG TAB (PACERONE) PO SCH ×2 (09:50→21:02)
[2022-10-08] MEDS: MIRALAX *UNIT DOSE* 17GM PACKET PO SCH ×2 (09:50→21:00)
[2022-10-08] MEDS: POTASSIUM CHLORIDE 10MEQ SR TABLET PO SCH ×2 (09:50→21:03)
[2022-10-08] MEDS: OMEPRAZOLE/SODIUM BICARB 20-840MG 10ML ORAL SYRINGE PO SCH (09:51)
[2022-10-08] MEDS: levETIRAcetam 250MG TABLET (KEPPRA) PO SCH ×2 (09:51→21:02)
[2022-10-08] MEDS: FUROSEMIDE 20 MG TAB PO SCH (09:51)
[2022-10-08] MEDS: ASPIRIN 81MG CHEW TABLET PO SCH (09:52)
[2022-10-08] MEDS: RIVAROXABAN 10MG TAB (XARELTO) PO SCH (18:02)
[2022-10-08] MEDS: RAMELTEON 8 MG TAB (ROZEREM) PO SCH (21:02)
[2022-10-08] MEDS: ATORVASTATIN 20 MG TAB PO SCH (21:03)
[2022-10-09 06:00] VITALS: BP 114/54; TEMP 98.1; O2SAT 97
[2022-10-09] MEDS: FUROSEMIDE 20 MG TAB PO SCH (09:00)
[2022-10-09] MEDS: MIRALAX *UNIT DOSE* 17GM PACKET PO SCH ×2 (09:25→20:16)
[2022-10-09] MEDS: OMEPRAZOLE/SODIUM BICARB 20-840MG 10ML ORAL SYRINGE PO SCH (09:25)
[2022-10-09] MEDS: SENOKOT S TAB PO SCH ×2 (09:26→20:16)
[2022-10-09] MEDS: levETIRAcetam 250MG TABLET (KEPPRA) PO SCH ×2 (09:26→20:16)
[2022-10-09] MEDS: AMIODARONE 200 MG TAB (PACERONE) PO SCH ×2 (09:26→20:17)
[2022-10-09] MEDS: MEMANTINE 5MG TABLET (NAMENDA) PO SCH ×2 (09:26→20:16)
[2022-10-09] MEDS: POTASSIUM CHLORIDE 10MEQ SR TABLET PO SCH ×2 (09:26→20:17)
[2022-10-09] MEDS: ASPIRIN 81MG CHEW TABLET PO SCH (09:26)
[2022-10-09] MEDS: RIVAROXABAN 10MG TAB (XARELTO) PO SCH (18:22)
[2022-10-09] MEDS: RAMELTEON 8 MG TAB (ROZEREM) PO SCH (20:16)
[2022-10-09] MEDS: ATORVASTATIN 20 MG TAB PO SCH (20:17)
[2022-10-10 06:12] VITALS: BP 114/58; TEMP 97.3; O2SAT 96
[2022-10-10] MEDS: levETIRAcetam 250MG TABLET (KEPPRA) PO SCH ×2 (08:41→20:42)
[2022-10-10] MEDS: SENOKOT S TAB PO SCH ×2 (08:41→20:42)
[2022-10-10] MEDS: POTASSIUM CHLORIDE 10MEQ SR TABLET PO SCH ×2 (08:41→20:42)
[2022-10-10] MEDS: FUROSEMIDE 20 MG TAB PO SCH (08:41)
[2022-10-10] MEDS: ASPIRIN 81MG CHEW TABLET PO SCH (08:41)
[2022-10-10] MEDS: AMIODARONE 200 MG TAB (PACERONE) PO SCH ×2 (08:41→20:42)
[2022-10-10] MEDS: MEMANTINE 5MG TABLET (NAMENDA) PO SCH ×2 (08:41→20:41)
[2022-10-10] MEDS: MIRALAX *UNIT DOSE* 17GM PACKET PO SCH ×2 (08:42→20:42)
[2022-10-10] MEDS: OMEPRAZOLE/SODIUM BICARB 20-840MG 10ML ORAL SYRINGE PO SCH (08:42)
[2022-10-10] MEDS: RIVAROXABAN 10MG TAB (XARELTO) PO SCH (17:54)
[2022-10-10] MEDS: ATORVASTATIN 20 MG TAB PO SCH (20:41)
[2022-10-10] MEDS: RAMELTEON 8 MG TAB (ROZEREM) PO SCH (20:42)
[2022-10-11 05:18] VITALS: BP 109/47; TEMP 97.5; O2SAT 96
[2022-10-11] MEDS: AMIODARONE 200 MG TAB (PACERONE) PO SCH ×2 (08:52→21:00)
[2022-10-11] MEDS: SENOKOT S TAB PO SCH ×2 (08:52→21:00)
[2022-10-11] MEDS: MEMANTINE 5MG TABLET (NAMENDA) PO SCH ×2 (08:52→21:00)
[2022-10-11] MEDS: ASPIRIN 81MG CHEW TABLET PO SCH (08:52)
[2022-10-11] MEDS: MIRALAX *UNIT DOSE* 17GM PACKET PO SCH ×2 (08:53→20:59)
[2022-10-11] MEDS: FUROSEMIDE 20 MG TAB PO SCH ×2 (08:53→08:57)
[2022-10-11] MEDS: OMEPRAZOLE/SODIUM BICARB 20-840MG 10ML ORAL SYRINGE PO SCH (08:53)
[2022-10-11] MEDS: levETIRAcetam 250MG TABLET (KEPPRA) PO SCH ×2 (08:53→20:59)
[2022-10-11] MEDS: POTASSIUM CHLORIDE 10MEQ SR TABLET PO SCH ×2 (08:53→21:32)
[2022-10-11] MEDS: RIVAROXABAN 10MG TAB (XARELTO) PO SCH (17:34)
[2022-10-11] MEDS: RAMELTEON 8 MG TAB (ROZEREM) PO SCH (20:59)
[2022-10-11] MEDS: ATORVASTATIN 20 MG TAB PO SCH (21:00)
[2022-10-12 06:00] VITALS: BP 133/63; TEMP 97.5; O2SAT 94
[2022-10-12] MEDS: ASPIRIN 81MG CHEW TABLET PO SCH (09:35)
[2022-10-12] MEDS: OMEPRAZOLE/SODIUM BICARB 20-840MG 10ML ORAL SYRINGE PO SCH (09:35)
[2022-10-12] MEDS: MIRALAX *UNIT DOSE* 17GM PACKET PO SCH ×2 (09:35→20:06)
[2022-10-12] MEDS: POTASSIUM CHLORIDE 10MEQ SR TABLET PO SCH ×2 (09:35→20:07)
[2022-10-12] MEDS: AMIODARONE 200 MG TAB (PACERONE) PO SCH ×2 (09:35→20:07)
[2022-10-12] MEDS: SENOKOT S TAB PO SCH ×2 (09:35→20:06)
[2022-10-12] MEDS: MEMANTINE 5MG TABLET (NAMENDA) PO SCH ×2 (09:35→20:07)
[2022-10-12] MEDS: levETIRAcetam 250MG TABLET (KEPPRA) PO SCH ×2 (09:36→20:06)
[2022-10-12] MEDS: FUROSEMIDE 20 MG TAB PO SCH (09:36)
[2022-10-12] MEDS: ACETAMINOPHEN TAB 650MG DOSE (2X325MG) PO PRN (12:03)
[2022-10-12] MEDS: RIVAROXABAN 10MG TAB (XARELTO) PO SCH (18:03)
[2022-10-12] MEDS: RAMELTEON 8 MG TAB (ROZEREM) PO SCH (20:07)
[2022-10-12] MEDS: ATORVASTATIN 20 MG TAB PO SCH (20:07)
[2022-10-13 06:00] VITALS: BP 118/62; TEMP 97.7; O2SAT 96
[2022-10-13] MEDS: SENOKOT S TAB PO SCH ×2 (09:37→21:06)
[2022-10-13] MEDS: ASPIRIN 81MG CHEW TABLET PO SCH (09:37)
[2022-10-13] MEDS: MEMANTINE 5MG TABLET (NAMENDA) PO SCH ×2 (09:37→21:06)
[2022-10-13] MEDS: AMIODARONE 200 MG TAB (PACERONE) PO SCH ×2 (09:37→21:06)
[2022-10-13] MEDS: levETIRAcetam 250MG TABLET (KEPPRA) PO SCH ×2 (09:37→21:06)
[2022-10-13] MEDS: FUROSEMIDE 20 MG TAB PO SCH (09:37)
[2022-10-13] MEDS: OMEPRAZOLE/SODIUM BICARB 20-840MG 10ML ORAL SYRINGE PO SCH (09:37)
[2022-10-13] MEDS: POTASSIUM CHLORIDE 10MEQ SR TABLET PO SCH ×2 (09:37→21:06)
[2022-10-13] MEDS: MIRALAX *UNIT DOSE* 17GM PACKET PO SCH ×2 (09:38→21:07)
[2022-10-13] MEDS: RIVAROXABAN 10MG TAB (XARELTO) PO SCH (17:15)
[2022-10-13] MEDS: RAMELTEON 8 MG TAB (ROZEREM) PO SCH (21:06)
[2022-10-13] MEDS: ATORVASTATIN 20 MG TAB PO SCH (21:06)
[2022-10-14 05:13] VITALS: BP 125/50; TEMP 97.5; O2SAT 98
[2022-10-14] MEDS: OMEPRAZOLE/SODIUM BICARB 20-840MG 10ML ORAL SYRINGE PO SCH (10:31)
[2022-10-14] MEDS: ASPIRIN 81MG CHEW TABLET PO SCH (10:31)
[2022-10-14] MEDS: AMIODARONE 200 MG TAB (PACERONE) PO SCH ×2 (10:32→20:09)
[2022-10-14] MEDS: levETIRAcetam 250MG TABLET (KEPPRA) PO SCH ×2 (10:32→20:09)
[2022-10-14] MEDS: FUROSEMIDE 20 MG TAB PO SCH (10:32)
[2022-10-14] MEDS: MIRALAX *UNIT DOSE* 17GM PACKET PO SCH ×2 (10:33→20:09)
[2022-10-14] MEDS: SENOKOT S TAB PO SCH ×2 (10:33→20:08)
[2022-10-14] MEDS: MEMANTINE 5MG TABLET (NAMENDA) PO SCH ×2 (10:33→20:09)
[2022-10-14] MEDS: POTASSIUM CHLORIDE 10MEQ SR TABLET PO SCH ×2 (10:33→20:08)
[2022-10-14] MEDS: RIVAROXABAN 10MG TAB (XARELTO) PO SCH (17:58)
[2022-10-14] MEDS: RAMELTEON 8 MG TAB (ROZEREM) PO SCH (20:08)
[2022-10-14] MEDS: ATORVASTATIN 20 MG TAB PO SCH (20:08)
[2022-10-15 06:00] VITALS: BP 125/47; TEMP 97.7; O2SAT 96
[2022-10-15] MEDS: SENOKOT S TAB PO SCH ×3 (09:00→20:09)
[2022-10-15] MEDS: MIRALAX *UNIT DOSE* 17GM PACKET PO SCH ×3 (09:00→20:09)
[2022-10-15] MEDS: levETIRAcetam 250MG TABLET (KEPPRA) PO SCH ×2 (10:05→20:09)
[2022-10-15] MEDS: OMEPRAZOLE/SODIUM BICARB 20-840MG 10ML ORAL SYRINGE PO SCH (10:06)
[2022-10-15] MEDS: POTASSIUM CHLORIDE 10MEQ SR TABLET PO SCH ×2 (10:06→20:08)
[2022-10-15] MEDS: FUROSEMIDE 20 MG TAB PO SCH (10:06)
[2022-10-15] MEDS: MEMANTINE 5MG TABLET (NAMENDA) PO SCH ×2 (10:06→20:08)
[2022-10-15] MEDS: AMIODARONE 200 MG TAB (PACERONE) PO SCH ×2 (10:06→20:09)
[2022-10-15] MEDS: ASPIRIN 81MG CHEW TABLET PO SCH (10:06)
[2022-10-15] MEDS: RIVAROXABAN 10MG TAB (XARELTO) PO SCH (17:47)
[2022-10-15] MEDS: ACETAMINOPHEN TAB 650MG DOSE (2X325MG) PO PRN (17:48)
[2022-10-15] MEDS: RAMELTEON 8 MG TAB (ROZEREM) PO SCH (20:09)
[2022-10-15] MEDS: ATORVASTATIN 20 MG TAB PO SCH (20:09)
[2022-10-16 05:46] VITALS: BP 112/48; TEMP 97.9; O2SAT 93
[2022-10-16] MEDS: MEMANTINE 5MG TABLET (NAMENDA) PO SCH ×2 (09:06→19:57)
[2022-10-16] MEDS: MIRALAX *UNIT DOSE* 17GM PACKET PO SCH ×2 (09:06→19:57)
[2022-10-16] MEDS: ACETAMINOPHEN TAB 650MG DOSE (2X325MG) PO PRN ×2 (09:06→17:07)
[2022-10-16] MEDS: levETIRAcetam 250MG TABLET (KEPPRA) PO SCH ×2 (09:06→19:56)
[2022-10-16] MEDS: ASPIRIN 81MG CHEW TABLET PO SCH (09:06)
[2022-10-16] MEDS: AMIODARONE 200 MG TAB (PACERONE) PO SCH ×2 (09:06→19:57)
[2022-10-16] MEDS: FUROSEMIDE 20 MG TAB PO SCH (09:07)
[2022-10-16] MEDS: POTASSIUM CHLORIDE 10MEQ SR TABLET PO SCH ×2 (09:07→19:57)
[2022-10-16] MEDS: SENOKOT S TAB PO SCH ×2 (09:07→19:56)
[2022-10-16] MEDS: OMEPRAZOLE/SODIUM BICARB 20-840MG 10ML ORAL SYRINGE PO SCH (09:07)
[2022-10-16] MEDS: RIVAROXABAN 10MG TAB (XARELTO) PO SCH (17:07)
[2022-10-16] MEDS: RAMELTEON 8 MG TAB (ROZEREM) PO SCH (19:56)
[2022-10-16] MEDS: ATORVASTATIN 20 MG TAB PO SCH (19:56)
[2022-10-17 05:39] VITALS: BP 121/57; TEMP 97.9; O2SAT 95
[2022-10-17] MEDS: ASPIRIN 81MG CHEW TABLET PO SCH (08:30)
[2022-10-17] MEDS: OMEPRAZOLE/SODIUM BICARB 20-840MG 10ML ORAL SYRINGE PO SCH (08:30)
[2022-10-17] MEDS: MEMANTINE 5MG TABLET (NAMENDA) PO SCH ×2 (08:30→19:38)
[2022-10-17] MEDS: POTASSIUM CHLORIDE 10MEQ SR TABLET PO SCH ×2 (08:30→19:38)
[2022-10-17] MEDS: AMIODARONE 200 MG TAB (PACERONE) PO SCH ×2 (08:30→19:38)
[2022-10-17] MEDS: levETIRAcetam 250MG TABLET (KEPPRA) PO SCH ×2 (08:30→19:38)
[2022-10-17] MEDS: SENOKOT S TAB PO SCH ×2 (08:30→19:24)
[2022-10-17] MEDS: FUROSEMIDE 20 MG TAB PO SCH (08:31)
[2022-10-17] MEDS: MIRALAX *UNIT DOSE* 17GM PACKET PO SCH ×2 (08:31→19:24)
[2022-10-17] MEDS: RIVAROXABAN 10MG TAB (XARELTO) PO SCH (17:30)
[2022-10-17] MEDS: ATORVASTATIN 20 MG TAB PO SCH (19:38)
[2022-10-17] MEDS: RAMELTEON 8 MG TAB (ROZEREM) PO SCH (19:38)
[2022-10-18 05:25] VITALS: BP 125/60; TEMP 97.3; O2SAT 96
[2022-10-18] MEDS: MIRALAX *UNIT DOSE* 17GM PACKET PO SCH ×2 (07:49→19:14)
[2022-10-18] MEDS: FUROSEMIDE 20 MG TAB PO SCH (08:30)
[2022-10-18] MEDS: POTASSIUM CHLORIDE 10MEQ SR TABLET PO SCH ×2 (08:30→19:22)
[2022-10-18] MEDS: AMIODARONE 200 MG TAB (PACERONE) PO SCH ×2 (08:30→19:22)
[2022-10-18] MEDS: SENOKOT S TAB PO SCH ×2 (08:30→19:22)
[2022-10-18] MEDS: ASPIRIN 81MG CHEW TABLET PO SCH (08:30)
[2022-10-18] MEDS: levETIRAcetam 250MG TABLET (KEPPRA) PO SCH ×2 (08:30→19:23)
[2022-10-18] MEDS: MEMANTINE 5MG TABLET (NAMENDA) PO SCH ×2 (08:30→19:22)
[2022-10-18] MEDS: OMEPRAZOLE/SODIUM BICARB 20-840MG 10ML ORAL SYRINGE PO SCH (08:31)
[2022-10-18] MEDS: RIVAROXABAN 10MG TAB (XARELTO) PO SCH (19:03)
[2022-10-18] MEDS: RAMELTEON 8 MG TAB (ROZEREM) PO SCH (19:22)
[2022-10-18] MEDS: ATORVASTATIN 20 MG TAB PO SCH (19:22)
[2022-10-19 06:00] VITALS: BP 126/59; TEMP 97.5; O2SAT 95
[2022-10-19] MEDS: MIRALAX *UNIT DOSE* 17GM PACKET PO SCH ×2 (08:40→19:24)
[2022-10-19] MEDS: FUROSEMIDE 20 MG TAB PO SCH (08:40)
[2022-10-19] MEDS: POTASSIUM CHLORIDE 10MEQ SR TABLET PO SCH ×2 (08:40→19:30)
[2022-10-19] MEDS: AMIODARONE 200 MG TAB (PACERONE) PO SCH ×2 (08:41→19:30)
[2022-10-19] MEDS: MEMANTINE 5MG TABLET (NAMENDA) PO SCH ×2 (08:41→19:30)
[2022-10-19] MEDS: levETIRAcetam 250MG TABLET (KEPPRA) PO SCH ×2 (08:41→19:30)
[2022-10-19] MEDS: SENOKOT S TAB PO SCH ×2 (08:41→19:30)
[2022-10-19] MEDS: OMEPRAZOLE/SODIUM BICARB 20-840MG 10ML ORAL SYRINGE PO SCH (08:41)
[2022-10-19] MEDS: ASPIRIN 81MG CHEW TABLET PO SCH (08:41)
[2022-10-19] MEDS: RIVAROXABAN 10MG TAB (XARELTO) PO SCH (17:16)
[2022-10-19] MEDS: RAMELTEON 8 MG TAB (ROZEREM) PO SCH (19:29)
[2022-10-19] MEDS: ATORVASTATIN 20 MG TAB PO SCH (19:30)
[2022-10-20 06:28] VITALS: BP 117/55; TEMP 97.5; O2SAT 92
[2022-10-20] MEDS: levETIRAcetam 250MG TABLET (KEPPRA) PO SCH ×2 (09:09→20:04)
[2022-10-20] MEDS: ASPIRIN 81MG CHEW TABLET PO SCH (09:10)
[2022-10-20] MEDS: POTASSIUM CHLORIDE 10MEQ SR TABLET PO SCH ×2 (09:10→20:04)
[2022-10-20] MEDS: MIRALAX *UNIT DOSE* 17GM PACKET PO SCH ×2 (09:10→20:10)
[2022-10-20] MEDS: MEMANTINE 5MG TABLET (NAMENDA) PO SCH ×2 (09:10→20:04)
[2022-10-20] MEDS: FUROSEMIDE 20 MG TAB PO SCH (09:10)
[2022-10-20] MEDS: AMIODARONE 200 MG TAB (PACERONE) PO SCH ×2 (09:10→20:04)
[2022-10-20] MEDS: SENOKOT S TAB PO SCH ×2 (09:10→20:04)
[2022-10-20] MEDS: OMEPRAZOLE/SODIUM BICARB 20-840MG 10ML ORAL SYRINGE PO SCH (09:11)
[2022-10-20 16:00] VITALS: BP_SYST 112; BP_SYST 117; BP_DIAS 52; BP_DIAS 59; TEMP 97.7; O2SAT 94; O2SAT 96
[2022-10-20] MEDS: RIVAROXABAN 10MG TAB (XARELTO) PO SCH (17:20)
[2022-10-20 19:47] VITALS: BP 113/55
[2022-10-20] MEDS: ATORVASTATIN 20 MG TAB PO SCH (20:04)
[2022-10-20] MEDS: RAMELTEON 8 MG TAB (ROZEREM) PO SCH (20:05)
[2022-10-21 06:32] VITALS: BP 126/60; O2SAT 94
[2022-10-21] MEDS: MEMANTINE 5MG TABLET (NAMENDA) PO SCH (08:41)
[2022-10-21] MEDS: ASPIRIN 81MG CHEW TABLET PO SCH (08:41)
[2022-10-21] MEDS: OMEPRAZOLE/SODIUM BICARB 20-840MG 10ML ORAL SYRINGE PO SCH (08:41)
[2022-10-21] MEDS: levETIRAcetam 250MG TABLET (KEPPRA) PO SCH (08:42)
[2022-10-21] MEDS: SENOKOT S TAB PO SCH (08:43)
[2022-10-21] MEDS: AMIODARONE 200 MG TAB (PACERONE) PO SCH (08:43)
[2022-10-21] MEDS: MIRALAX *UNIT DOSE* 17GM PACKET PO SCH (08:43)
[2022-10-21] MEDS: POTASSIUM CHLORIDE 10MEQ SR TABLET PO SCH (08:43)
[2022-10-21] MEDS: FUROSEMIDE 20 MG TAB PO SCH (08:43)
== END 2022-10-21 11:09 ==
LOC: M ED 13:59 → M ED INP 14:00 → ENRESERV 08-27 08:55 → M MSPAV 08-27 10:35
PROVIDERS: ADMIT Internal Medicine; ATTEND Internal Medicine
DX: R56.9 Unspecified convulsions (principal); H57.89 Other specified disorders of eye and adnexa; G30.9 Alzheimer's disease, unspecified; F02.C11 Dementia in other diseases classified elsewhere, severe, with agitation; R54 Age-related physical debility; H54.8 Legal blindness, as defined in USA; E11.621 Type 2 diabetes mellitus with foot ulcer; L89.623 Pressure ulcer of left heel, stage 3; R94.31 Abnormal electrocardiogram [ECG] [EKG]; E11.51 Type 2 diabetes mellitus with diabetic peripheral angiopathy without gangrene; N18.30 Chronic kidney disease, stage 3 unspecified; E11.22 Type 2 diabetes mellitus with diabetic chronic kidney disease; I25.10 Atherosclerotic heart disease of native coronary artery without angina pectoris; I73.9 Peripheral vascular disease, unspecified; I13.0 Hypertensive heart and chronic kidney disease with heart failure and stage 1 through stage 4 chronic kidney disease, or unspecified chronic kidney disease; I50.9 Heart failure, unspecified; K21.9 Gastro-esophageal reflux disease without esophagitis; Z91.81 History of falling; G47.33 Obstructive sleep apnea (adult) (pediatric); E78.5 Hyperlipidemia, unspecified; Z86.711 Personal history of pulmonary embolism; F10.21 Alcohol dependence, in remission; Z95.0 Presence of cardiac pacemaker; Z95.5 Presence of coronary angioplasty implant and graft; Z79.899 Other long term (current) drug therapy; Z79.82 Long term (current) use of aspirin; Z90.79 Acquired absence of other genital organ(s)
CPT/HCPCS: 36415; 70450; 80048; 80076; 81001; 82550; 82553; 83690; 84484; 85025; 85610; 85730; 87635; 93005; 96372; 96374; 97161; 97530; 99284; G0378; J1953

== ENCOUNTER → 2022-12-06 | Outpatient (REF) | payer MEDICARE ==
[~2022-12-06] MED LIST changes: +KEPP1TAB PO; +ROZE8TAB16 PO; +SENN-23 PO
[2022-12-06 12:26] LABS: APPEARANCE, URINE CLEAR (CLEAR); BACTERIA, URINE AUTO NEGATIVE (NEGATIVE); BILIRUBIN, URINE AUTO NEGATIVE (NEGATIVE); BLOOD, URINE BLOOD NEGATIVE (NEGATIVE); COLOR, URINE STRAW (YELLOW); GLUCOSE, URINE (UA) AUTO NEGATIVE (NEGATIVE); KETONE, URINE AUTO NEGATIVE (NEGATIVE); LEUKOCYTE ESTERASE, URINE AUTO NEGATIVE (NEGATIVE); MUCUS, URINE SMALL (NEGATIVE); NITRITE, URINE AUTO NEGATIVE (NEGATIVE); PROTEIN, URINE AUTO NEGATIVE (NEGATIVE); RBC, URINE AUTO 0 /HPF (0-3); SPECIFIC GRAVITY URINE AUTO 1.009 (1.002-1.035); SQUAMOUS EPITHELIAL CELL UR AU 0 /HPF (0-6); UROBILINOGEN, URINE AUTO 0.2 mg/dL (0.0-2.0); WBC, URINE AUTO 0 /HPF (0-3)
== END ==
LOC: SKLAB6 12:04
PROVIDERS: ATTEND Internal Medicine
DX: R35.0 Frequency of micturition (principal)

== ENCOUNTER → 2023-03-13 | Outpatient (REF) | payer MEDICARE | LOC: SKLAB8 09:03 | PROVIDERS: ATTEND Internal Medicine | DX: S22.080A Wedge compression fracture of T11-T12 vertebra, initial encounter for closed fracture (principal); S32.010A Wedge compression fracture of first lumbar vertebra, initial encounter for closed fracture; I51.7 Cardiomegaly; I99.8 Other disorder of circulatory system; K59.00 Constipation, unspecified; R10.32 Left lower quadrant pain ==

== ENCOUNTER → 2023-03-13 | Outpatient (CLI) | payer MEDICARE | LOC: M RAD 13:25 | PROVIDERS: ATTEND Physical Therapist | DX: R10.32 Left lower quadrant pain (principal); N28.1 Cyst of kidney, acquired; S22.080A Wedge compression fracture of T11-T12 vertebra, initial encounter for closed fracture; S32.010A Wedge compression fracture of first lumbar vertebra, initial encounter for closed fracture; I51.7 Cardiomegaly; I99.8 Other disorder of circulatory system; K59.00 Constipation, unspecified; X58.XXXA Exposure to other specified factors, initial encounter; Y92.9 Unspecified place or not applicable; Y93.9 Activity, unspecified; Y99.9 Unspecified external cause status ==

== ENCOUNTER → 2023-03-13 | Outpatient (REF) | payer MEDICARE ==
[2023-03-13 02:34] LABS: HEMATOCRIT 28.1 % (42.0-52.0); HEMOGLOBIN 8.8 g/dl (13.5-17.5); MEAN CORPUSCULAR HEMOGLOBIN 27.3 pg (27.0-33.0); MEAN CORPUSCULAR HGB CONC 31.3 g/dl (32.0-36.5); MEAN CORPUSCULAR VOLUME 87.3 fl (80.0-96.0); PLATELET COUNT, AUTOMATED 199 10^3/uL (150-450); RED BLOOD COUNT 3.22 10^6/uL (4.30-6.10); WHITE BLOOD COUNT 8.8 10^3/uL (4.0-10.0)
[2023-03-13 02:58] LABS: BLOOD UREA NITROGEN 22 MG/DL (9-23); CALCIUM LEVEL 8.8 MG/DL (8.3-10.6); CARBON DIOXIDE LEVEL 28 MMOL/L (20-31); CHLORIDE LEVEL 107 MMOL/L (98-107); CREATININE FOR GFR 1.01 MG/DL (0.70-1.30); GLOMERULAR FILTRATION RATE > 60.0 (>35); GLUCOSE, FASTING 120 MG/DL (74-106); POTASSIUM SERUM 4.1 MMOL/L (3.5-5.1); SODIUM LEVEL 140 MMOL/L (136-145)
[2023-03-13 11:26] LABS: APPEARANCE, URINE CLEAR (CLEAR); BACTERIA, URINE AUTO NEGATIVE (NEGATIVE); BILIRUBIN, URINE AUTO NEGATIVE (NEGATIVE); BLOOD, URINE BLOOD NEGATIVE (NEGATIVE); COLOR, URINE YELLOW (YELLOW); GLUCOSE, URINE (UA) AUTO NEGATIVE (NEGATIVE); KETONE, URINE AUTO NEGATIVE (NEGATIVE); LEUKOCYTE ESTERASE, URINE AUTO NEGATIVE (NEGATIVE); MUCUS, URINE SMALL (NEGATIVE); NITRITE, URINE AUTO NEGATIVE (NEGATIVE); PROTEIN, URINE AUTO NEGATIVE (NEGATIVE); RBC, URINE AUTO 2 /HPF (0-3); SPECIFIC GRAVITY URINE AUTO 1.026 (1.002-1.035); SQUAMOUS EPITHELIAL CELL UR AU 0 /HPF (0-6); WBC, URINE AUTO 0 /HPF (0-3)
== END ==
LOC: SKLAB8 01:00
PROVIDERS: ATTEND Internal Medicine
DX: R10.32 Left lower quadrant pain (principal)

== ENCOUNTER → 2023-03-31 | Outpatient (REF) | payer MEDICARE ==
[~2023-03-31] MED LIST changes: -RISP-7 PO; +RISP0.5T82 PO
[2023-03-31 11:28] LABS: HEMATOCRIT 28.4 % (42.0-52.0); HEMOGLOBIN 8.6 g/dl (13.5-17.5); MEAN CORPUSCULAR HEMOGLOBIN 26.5 pg (27.0-33.0); MEAN CORPUSCULAR HGB CONC 30.3 g/dl (32.0-36.5); MEAN CORPUSCULAR VOLUME 87.4 fl (80.0-96.0); PLATELET COUNT, AUTOMATED 230 10^3/uL (150-450); RED BLOOD COUNT 3.25 10^6/uL (4.30-6.10); WHITE BLOOD COUNT 6.8 10^3/uL (4.0-10.0)
[2023-03-31 11:58] LABS: ALBUMIN 3.3 G/DL (3.2-5.2); ALKALINE PHOSPHATASE 72 U/L (46-116); ALT/SGPT 39 U/L (7.0-40); AST/SGOT 30 U/L (<34); BILIRUBIN,TOTAL 0.4 MG/DL (0.3-1.2); BLOOD UREA NITROGEN 25 MG/DL (9-23); CALCIUM LEVEL 8.7 MG/DL (8.3-10.6); CARBON DIOXIDE LEVEL 26 MMOL/L (20-31); CHLORIDE LEVEL 109 MMOL/L (98-107); CREATININE FOR GFR 1.05 MG/DL (0.70-1.30); GLOMERULAR FILTRATION RATE > 60.0 (>35); GLUCOSE, FASTING 133 MG/DL (74-106); POTASSIUM SERUM 4.8 MMOL/L (3.5-5.1); SODIUM LEVEL 142 MMOL/L (136-145)
== END ==
LOC: SKLAB6 06:51
PROVIDERS: ATTEND Internal Medicine
DX: R41.82 Altered mental status, unspecified (principal)

== ENCOUNTER → 2023-04-24 | Outpatient (REF) | payer MEDICARE ==
[2023-04-24 10:51] LABS: HEMOGLOBIN 9.2 g/dl (13.5-17.5); MEAN CORPUSCULAR HEMOGLOBIN 26.4 pg (27.0-33.0); MEAN CORPUSCULAR HGB CONC 30.7 g/dl (32.0-36.5); MEAN CORPUSCULAR VOLUME 86.2 fl (80.0-96.0); PLATELET COUNT, AUTOMATED 240 10^3/uL (150-450); RED BLOOD COUNT 3.48 10^6/uL (4.30-6.10); WHITE BLOOD COUNT 8.8 10^3/uL (4.0-10.0)
[2023-04-24 11:13] LABS: BLOOD UREA NITROGEN 26 MG/DL (9-23); CALCIUM LEVEL 8.7 MG/DL (8.3-10.6); CARBON DIOXIDE LEVEL 26 MMOL/L (20-31); CHLORIDE LEVEL 111 MMOL/L (98-107); CREATININE FOR GFR 1.15 MG/DL (0.70-1.30); GLOMERULAR FILTRATION RATE > 60.0 (>35); GLUCOSE, FASTING 163 MG/DL (74-106); POTASSIUM SERUM 4.5 MMOL/L (3.5-5.1); SODIUM LEVEL 141 MMOL/L (136-145)
== END ==
LOC: SKLAB8 10:00
PROVIDERS: ATTEND Internal Medicine
DX: R19.7 Diarrhea, unspecified (principal); R11.10 Vomiting, unspecified

== ENCOUNTER → 2023-05-04 | Outpatient (REF) | payer MEDICARE ==
[2023-05-04 09:52] LABS: HEMATOCRIT 29.2 % (42.0-52.0); HEMOGLOBIN 9.1 g/dl (13.5-17.5); MEAN CORPUSCULAR HEMOGLOBIN 26.4 pg (27.0-33.0); MEAN CORPUSCULAR HGB CONC 31.2 g/dl (32.0-36.5); MEAN CORPUSCULAR VOLUME 84.6 fl (80.0-96.0); PLATELET COUNT, AUTOMATED 220 10^3/uL (150-450); RED BLOOD COUNT 3.45 10^6/uL (4.30-6.10); WHITE BLOOD COUNT 6.7 10^3/uL (4.0-10.0)
[2023-05-04 10:25] LABS: THYROID STIMULATING HORMONE 1.324 uIU/ML (0.55-4.78)
[2023-05-04 10:26] LABS: ALBUMIN 3.2 G/DL (3.2-5.2); ALKALINE PHOSPHATASE 67 U/L (46-116); ALT/SGPT 171 U/L (7.0-40); AST/SGOT 50 U/L (<34); BILIRUBIN,TOTAL 0.5 MG/DL (0.3-1.2); BLOOD UREA NITROGEN 24 MG/DL (9-23); CALCIUM LEVEL 8.6 MG/DL (8.3-10.6); CARBON DIOXIDE LEVEL 27 MMOL/L (20-31); CHLORIDE LEVEL 111 MMOL/L (98-107); CREATININE FOR GFR 1.11 MG/DL (0.70-1.30); GLOMERULAR FILTRATION RATE > 60.0 (>35); GLUCOSE, FASTING 96 MG/DL (74-106); POTASSIUM SERUM 4.2 MMOL/L (3.5-5.1); SODIUM LEVEL 141 MMOL/L (136-145); TOTAL PROTEIN 6.1 G/DL (5.7-8.2)
== END ==
LOC: SKLAB8 07:00
PROVIDERS: ATTEND Internal Medicine
DX: I10 Essential (primary) hypertension (principal); Z79.899 Other long term (current) drug therapy

== ENCOUNTER 2023-07-09 14:27 | Emergency (ER) | payer MEDICARE ==
[2023-07-09 15:06] LABS: BASO # 0.1 10^3/uL (0.0-0.2); BASO % 0.9 % (0.0-1.0); EOS # 0.1 10^3/uL (0.0-0.5); EOS % 1.3 % (0.0-3.0); HEMOGLOBIN 8.8 g/dl (13.5-17.5); LYMPH # 1.6 10^3/uL (1.5-5.0); LYMPH % 30.4 % (24.0-44.0); MEAN CORPUSCULAR HEMOGLOBIN 26.4 pg (27.0-33.0); MEAN CORPUSCULAR HGB CONC 31.4 g/dl (32.0-36.5); MEAN CORPUSCULAR VOLUME 84.1 fl (80.0-96.0); MONO # 0.4 10^3/uL (0.0-0.8); MONO % 7.4 % (2.0-8.0); NEUTROPHILS # 3.1 10^3/uL (1.5-8.5); NEUTROPHILS % 59.6 % (36.0-66.0); PLATELET COUNT, AUTOMATED 196 10^3/uL (150-450); RED BLOOD COUNT 3.33 10^6/uL (4.30-6.10); WHITE BLOOD COUNT 5.3 10^3/uL (4.0-10.0)
[2023-07-09 15:31] LABS: LIPASE 27 U/L (12-53)
[2023-07-09 15:34] LABS: ALBUMIN 3.4 G/DL (3.2-5.2); ALKALINE PHOSPHATASE 51 U/L (46-116); ALT/SGPT 34 U/L (7.0-40); AST/SGOT 29 U/L (<34); BILIRUBIN,DIRECT 0.3 MG/DL (<0.4); BILIRUBIN,TOTAL 0.7 MG/DL (0.3-1.2); BLOOD UREA NITROGEN 23 MG/DL (9-23); CALCIUM LEVEL 8.4 MG/DL (8.3-10.6); CARBON DIOXIDE LEVEL 25 MMOL/L (20-31); CHLORIDE LEVEL 107 MMOL/L (98-107); CK-MB VALUE MASS < 1.0 NG/ML (<3.6); CPK CREATINE PHOSPHOKINASE 60 U/L (46-171); CREATININE FOR GFR 1.37 MG/DL (0.70-1.30); GLOMERULAR FILTRATION RATE 52.8 (>35); GLUCOSE, FASTING 156 MG/DL (74-106); MB/CK RELATIVE INDEX 1.66 (< OR =4); POTASSIUM SERUM 4.7 MMOL/L (3.5-5.1); SODIUM LEVEL 139 MMOL/L (136-145); TOTAL PROTEIN 6.5 G/DL (5.7-8.2)
[2023-07-09] MEDS: LIDOCAINE 2% 5ML JELLY UROJET TOP ONE (15:47)
[2023-07-09] MEDS: NS 500 ML IV ONE (15:48)
[2023-07-09] MEDS ORDERED: ISOVUE-370 76% 100ML VIAL As Ordered ONE (15:51)
[2023-07-09 16:42] LABS: APPEARANCE, URINE HAZY (CLEAR); BACTERIA, URINE AUTO NEGATIVE (NEGATIVE); BILIRUBIN, URINE AUTO NEGATIVE (NEGATIVE); BLOOD, URINE BLOOD NEGATIVE (NEGATIVE); COLOR, URINE YELLOW (YELLOW); GLUCOSE, URINE (UA) AUTO NEGATIVE (NEGATIVE); KETONE, URINE AUTO TRACE mg/dL (NEGATIVE); LEUKOCYTE ESTERASE, URINE AUTO NEGATIVE (NEGATIVE); MUCUS, URINE SMALL (NEGATIVE); NITRITE, URINE AUTO NEGATIVE (NEGATIVE); PROTEIN, URINE AUTO 1+ mg/dL (NEGATIVE); RBC, URINE AUTO 1 /HPF (0-3); SPECIFIC GRAVITY URINE AUTO 1.023 (1.002-1.035); SQUAMOUS EPITHELIAL CELL UR AU 0 /HPF (0-6); WBC, URINE AUTO 1 /HPF (0-3)
[2023-07-09 17:14] LABS: CK-MB VALUE MASS < 1.0 NG/ML (<3.6)
[2023-07-09 17:24] LABS: CPK CREATINE PHOSPHOKINASE 69 U/L (46-171); MB/CK RELATIVE INDEX 1.44 (< OR =4)
[2023-07-09 17:45] VITALS: BP 170/84; TEMP 97.5; O2SAT 97
== END 2023-07-09 18:07 | disposition home or self-care (01) ==
LOC: M ED 14:27 → EDBD 14:27 → M ED 18:07
DX: R55 Syncope and collapse (principal); I45.81 Long QT syndrome; I48.91 Unspecified atrial fibrillation; I50.22 Chronic systolic (congestive) heart failure; E11.9 Type 2 diabetes mellitus without complications; G40.909 Epilepsy, unspecified, not intractable, without status epilepticus; N18.9 Chronic kidney disease, unspecified; Z87.891 Personal history of nicotine dependence; F10.10 Alcohol abuse, uncomplicated; Z79.1 Long term (current) use of non-steroidal anti-inflammatories (NSAID); Z79.84 Long term (current) use of oral hypoglycemic drugs; Z79.899 Other long term (current) drug therapy
CPT/HCPCS: 51701; 71045; 71275; 74177; 80048; 80076; 81001; 82550; 82553; 83690; 84484; 85025; 93005; 96360; 96361; 99285; Q9967

== ENCOUNTER → 2023-07-09 | Outpatient (REF) | payer MEDICARE ==
[~2023-07-09] MED LIST changes: -GLIM1TAB4 PO; +GLIM1TAB84 PO; +MEMA10TA PO; -MEMA10TA19 PO
== END ==
LOC: SKLAB8 07:00
PROVIDERS: ATTEND Nurse Practitioner Adult Health
DX: R56.9 Unspecified convulsions (principal)

== ENCOUNTER → 2023-07-18 | Outpatient (REF) | payer MEDICARE ==
[2023-07-18 12:43] LABS: APPEARANCE, URINE HAZY (CLEAR); BACTERIA, URINE AUTO NEGATIVE (NEGATIVE); BILIRUBIN, URINE AUTO NEGATIVE (NEGATIVE); BLOOD, URINE BLOOD NEGATIVE (NEGATIVE); COLOR, URINE YELLOW (YELLOW); GLUCOSE, URINE (UA) AUTO NEGATIVE (NEGATIVE); KETONE, URINE AUTO NEGATIVE (NEGATIVE); LEUKOCYTE ESTERASE, URINE AUTO 1+ (NEGATIVE); NITRITE, URINE AUTO POSITIVE (NEGATIVE); PROTEIN, URINE AUTO NEGATIVE (NEGATIVE); RBC, URINE AUTO 0 /HPF (0-3); SPECIFIC GRAVITY URINE AUTO 1.025 (1.002-1.035); SQUAMOUS EPITHELIAL CELL UR AU 0 /HPF (0-6); WBC, URINE AUTO 7 /HPF (0-3)
== END ==
LOC: SKLAB8 07:00
PROVIDERS: ATTEND Internal Medicine
DX: R41.89 Other symptoms and signs involving cognitive functions and awareness (principal); Z79.899 Other long term (current) drug therapy

== ENCOUNTER → 2023-07-18 | Outpatient (REF) | payer MEDICARE | LOC: SKLAB8 12:00 | PROVIDERS: ATTEND Internal Medicine | DX: Z53.8 Procedure and treatment not carried out for other reasons (principal) ==

== ENCOUNTER → 2023-07-28 | Outpatient (REF) | payer MEDICARE ==
[2023-07-28 10:32] LABS: HEMATOCRIT 30.4 % (42.0-52.0); HEMOGLOBIN 9.1 g/dl (13.5-17.5); MEAN CORPUSCULAR HEMOGLOBIN 25.3 pg (27.0-33.0); MEAN CORPUSCULAR HGB CONC 29.9 g/dl (32.0-36.5); MEAN CORPUSCULAR VOLUME 84.4 fl (80.0-96.0); PLATELET COUNT, AUTOMATED 256 10^3/uL (150-450); WHITE BLOOD COUNT 8.6 10^3/uL (4.0-10.0)
[2023-07-28 10:57] LABS: CALCIUM LEVEL 8.9 MG/DL (8.3-10.6); POTASSIUM SERUM 4.5 MMOL/L (3.5-5.1)
[2023-07-28 12:39] LABS: CREATININE FOR GFR 1.45 MG/DL (0.70-1.30); GLOMERULAR FILTRATION RATE 49.5 (>35)
== END ==
LOC: SKLAB8 08:48
PROVIDERS: ATTEND Internal Medicine
DX: R41.82 Altered mental status, unspecified (principal)

== ENCOUNTER 2023-08-11 17:59 | Inpatient (IN) | payer MEDICARE, MEDICAID ==
[~2023-08-11] VITALS: Ht 177.8 cm; Wt 70.3 kg
[2023-08-11 19:28] LABS: BASO % 0.2 % (0.0-1.0); EOS % 0.1 % (0.0-3.0); HEMOGLOBIN 9.1 g/dl (13.5-17.5); LYMPH # 0.8 10^3/uL (1.5-5.0); LYMPH % 7.8 % (24.0-44.0); MEAN CORPUSCULAR HEMOGLOBIN 25.5 pg (27.0-33.0); MEAN CORPUSCULAR HGB CONC 30.3 g/dl (32.0-36.5); MONO # 0.6 10^3/uL (0.0-0.8); MONO % 5.7 % (2.0-8.0); NEUTROPHILS # 8.6 10^3/uL (1.5-8.5); NEUTROPHILS % 85.6 % (36.0-66.0); PLATELET COUNT, AUTOMATED 204 10^3/uL (150-450); RED BLOOD COUNT 3.57 10^6/uL (4.30-6.10)
[2023-08-11 20:06] LABS: ALBUMIN 3.6 G/DL (3.2-5.2); ALKALINE PHOSPHATASE 44 U/L (46-116); ALT/SGPT 44 U/L (7.0-40); AST/SGOT 43 U/L (<34); BILIRUBIN,DIRECT 0.1 MG/DL (<0.4); BILIRUBIN,TOTAL 0.5 MG/DL (0.3-1.2); BLOOD UREA NITROGEN 30 MG/DL (9-23); CARBON DIOXIDE LEVEL 24 MMOL/L (20-31); CHLORIDE LEVEL 109 MMOL/L (98-107); CK-MB VALUE MASS < 1.0 NG/ML (<3.6); CPK CREATINE PHOSPHOKINASE 72 U/L (46-171); CREATININE FOR GFR 1.27 MG/DL (0.70-1.30); GLOMERULAR FILTRATION RATE 57.7 (>35); GLUCOSE, FASTING 139 MG/DL (74-106); MB/CK RELATIVE INDEX 1.38 (< OR =4); POTASSIUM SERUM 6.3 MMOL/L (3.5-5.1); SODIUM LEVEL 141 MMOL/L (136-145); THYROID STIMULATING HORMONE 3.529 uIU/ML (0.55-4.78); THYROXINE (T4) 6.8 UG/DL (4.5-10.9); TOTAL PROTEIN 6.9 G/DL (5.7-8.2)
[2023-08-11 20:29] LABS: PROCALCITONIN 0.09 ng/ml
[2023-08-11] MEDS: LORazepam 2 MG/ML 1ML VIAL IV STA (20:48)
[2023-08-11 20:56] LABS: C REACTIVE PROTEIN QUANTITATIV < 0.40 MG/DL (<1.0)
[2023-08-11] MEDS: NS 1,000 ML IV SCH (21:00)
[2023-08-11] MEDS: PATIROMER SORBITEX CALCIUM 8.4 GM POWDER PACKET (VELTASSA) PO ONE (21:13)
[2023-08-11 22:44] LABS: VENOUS BASE EXCESS -6.1 (-2.0-2.0); VENOUS HCO3 19.4 MMOL/L (23.0-27.0); VENOUS O2 SATURATION 85.1 % (60.0-80.0); VENOUS PARTIAL PRESSURE CO2 37.9 mmHg (38.0-50.0); VENOUS PARTIAL PRESSURE O2 53.5 mmHg (30.0-50.0); VENOUS PH 7.326 UNITS (7.330-7.430); VENOUS STANDARD HCO3 19.3 MMOL/L; VENOUS TOTAL CO2 20.5 MMOL/L (24.0-28.0)
[2023-08-12] VITALS (7 sets, daily range): BP systolic 113–154; BP diastolic 42–94; TEMP 97.7–98.6; O2SAT 90–97
[2023-08-12] MEDS: DEXTROSE 50% 50ML SYRINGE IV STA (00:22)
[2023-08-12] MEDS: cefTRIAXone SOD 1 GM in D5W MINI-BAG PLUS 50 ML IV ONE (00:23)
[2023-08-12] MEDS: HumuLIN R (REGULAR) INSULIN (NovoLIN R) **100U/ML** PER UNIT SC STA (00:23)
[2023-08-12] MEDS ORDERED: DIVA125C6 PO (00:27)
[2023-08-12] MEDS ORDERED: ACET-907 PO (00:27)
[2023-08-12] MEDS ORDERED: GLUC1LIQ18 PO (00:27)
[2023-08-12] MEDS ORDERED: GUAI100L6 PO (00:27)
[2023-08-12] MEDS ORDERED: SIME80CH6 PO (00:27)
[2023-08-12] MEDS ORDERED: FLEEENE12 PR (00:27)
[2023-08-12] MEDS ORDERED: MILKSUS3 PO (00:27)
[2023-08-12] MEDS ORDERED: MELA3TAB24 PO (00:27)
[2023-08-12] MEDS ORDERED: NITR0.4S14 SL (00:27)
[2023-08-12] MEDS ORDERED: HOME MED LIST COMPLETE! XX SCH (00:30)
[2023-08-12] MEDS ORDERED: ACETAMINOPHEN TAB 650MG DOSE (2X325MG) PO PRN (00:35)
[2023-08-12] MEDS ORDERED: SIMETHICONE 80MG CHEW TAB PO PRN (00:45)
[2023-08-12] MEDS ORDERED: guaiFENesin SYRUP 200MG 10ML UDC PO PRN (00:45)
[2023-08-12] MEDS ORDERED: MOM 30ML SUSPENSION UDC PO PRN (00:45)
[2023-08-12] MEDS: DOXYCYCLINE HYCLATE 100 MG in D5W MINI-BAG PLUS 100 ML IV ONE (01:29)
[2023-08-12] MEDS: NS 1,000 ML IV SCH (01:30)
[2023-08-12 04:25] LABS: CALCIUM LEVEL 8.8 MG/DL (8.3-10.6); CREATININE FOR GFR 1.32 MG/DL (0.70-1.30); GLOMERULAR FILTRATION RATE 55.1 (>35); POTASSIUM SERUM 3.8 MMOL/L (3.5-5.1)
[2023-08-12] MEDS: HEPARIN SOD (PORCINE) 5000UNITS/ML 1ML VIAL/SYRINGE SC SCH (05:59)
[2023-08-12] MEDS ORDERED: DOCUSATE SODIUM 100MG CAPSULE PO SCH (09:00)
[2023-08-12] MEDS: levETIRAcetam 250MG TABLET (KEPPRA) PO SCH (09:09)
[2023-08-12] MEDS: AMIODARONE 200 MG TAB (PACERONE) PO SCH (09:09)
[2023-08-12] MEDS: MEMANTINE 5MG TABLET (NAMENDA) PO SCH (09:09)
[2023-08-12] MEDS: SENOKOT S TAB PO SCH (09:09)
[2023-08-12] MEDS: ASPIRIN 81MG ENTERIC TABLET PO SCH (09:10)
[2023-08-12] MEDS: MIRALAX *UNIT DOSE* 17GM PACKET PO SCH (09:10)
[2023-08-12] MEDS: DOXYCYCLINE HYCLATE 100 MG in D5W MINI-BAG PLUS 100 ML IV SCH (09:36)
[2023-08-12] MEDS ORDERED: CEFTAROLINE FOSAMIL 600 MG in D5W MINI-BAG PLUS 50 ML IV SCH (14:10)
[2023-08-12] MEDS: DIVALPROEX SPRINKLE 125 MG CAP PO SCH (14:32)
[2023-08-12] MEDS: ATORVASTATIN 20 MG TAB PO SCH (21:16)
[2023-08-12] MEDS: CEFTAROLINE FOSAMIL 400 MG in D5W MINI-BAG PLUS 50 ML IV SCH (21:49)
[2023-08-12] MEDS ORDERED: cefTRIAXone SOD 1 GM in D5W MINI-BAG PLUS 50 ML IV SCH (23:00)
[2023-08-13 04:20] VITALS: BP 113/83; TEMP 97.9; O2SAT 96
[2023-08-13 06:57] LABS: BASO % 0.2 % (0.0-1.0); EOS # 0.1 10^3/uL (0.0-0.5); EOS % 0.5 % (0.0-3.0); HEMATOCRIT 27.6 % (42.0-52.0); HEMOGLOBIN 8.5 g/dl (13.5-17.5); LYMPH # 2.5 10^3/uL (1.5-5.0); LYMPH % 18.9 % (24.0-44.0); MEAN CORPUSCULAR HEMOGLOBIN 25.5 pg (27.0-33.0); MEAN CORPUSCULAR HGB CONC 30.8 g/dl (32.0-36.5); MEAN CORPUSCULAR VOLUME 82.9 fl (80.0-96.0); MONO # 0.9 10^3/uL (0.0-0.8); MONO % 7.1 % (2.0-8.0); NEUTROPHILS # 9.5 10^3/uL (1.5-8.5); NEUTROPHILS % 72.7 % (36.0-66.0); PLATELET COUNT, AUTOMATED 173 10^3/uL (150-450); RED BLOOD COUNT 3.33 10^6/uL (4.30-6.10)
[2023-08-13 07:25] LABS: ALBUMIN 3.2 G/DL (3.2-5.2); ALKALINE PHOSPHATASE 49 U/L (46-116); ALT/SGPT 55 U/L (7.0-40); AST/SGOT 47 U/L (<34); BILIRUBIN,TOTAL 0.5 MG/DL (0.3-1.2); BLOOD UREA NITROGEN 22 MG/DL (9-23); CALCIUM LEVEL 8.9 MG/DL (8.3-10.6); CARBON DIOXIDE LEVEL 28 MMOL/L (20-31); CHLORIDE LEVEL 108 MMOL/L (98-107); CREATININE FOR GFR 1.04 MG/DL (0.70-1.30); GLOMERULAR FILTRATION RATE > 60.0 (>35); GLUCOSE, FASTING 98 MG/DL (74-106); MAGNESIUM LEVEL 1.9 MG/DL (1.8-2.4); POTASSIUM SERUM 3.9 MMOL/L (3.5-5.1); SODIUM LEVEL 141 MMOL/L (136-145); TOTAL PROTEIN 6.1 G/DL (5.7-8.2)
[2023-08-13 08:00] VITALS: BP 118/81; TEMP 97.7; O2SAT 94
[2023-08-13] MEDS: DOXYCYCLINE HYCLATE 100MG TABLET PO SCH (08:48)
[2023-08-13] MEDS: cefTRIAXone SOD 1 GM in D5W MINI-BAG PLUS 50 ML IV SCH (08:48)
[2023-08-13 12:07] VITALS: BP 105/55; TEMP 97.9; O2SAT 95
[2023-08-13 16:00] VITALS: BP 143/51; TEMP 97.9; O2SAT 96
[2023-08-14 04:00] VITALS: BP 119/84; TEMP 98.2; O2SAT 94
[2023-08-14 06:31] LABS: BASO % 0.3 % (0.0-1.0); EOS # 0.1 10^3/uL (0.0-0.5); EOS % 1.4 % (0.0-3.0); HEMATOCRIT 27.4 % (42.0-52.0); HEMOGLOBIN 8.5 g/dl (13.5-17.5); LYMPH # 2.4 10^3/uL (1.5-5.0); LYMPH % 25.1 % (24.0-44.0); MEAN CORPUSCULAR HEMOGLOBIN 25.5 pg (27.0-33.0); MEAN CORPUSCULAR VOLUME 82.3 fl (80.0-96.0); MONO # 0.7 10^3/uL (0.0-0.8); MONO % 7.2 % (2.0-8.0); NEUTROPHILS # 6.3 10^3/uL (1.5-8.5); NEUTROPHILS % 65.7 % (36.0-66.0); PLATELET COUNT, AUTOMATED 174 10^3/uL (150-450); RED BLOOD COUNT 3.33 10^6/uL (4.30-6.10); WHITE BLOOD COUNT 9.6 10^3/uL (4.0-10.0)
[2023-08-14 07:02] LABS: BLOOD UREA NITROGEN 19 MG/DL (9-23); CALCIUM LEVEL 8.7 MG/DL (8.3-10.6); CARBON DIOXIDE LEVEL 27 MMOL/L (20-31); CHLORIDE LEVEL 107 MMOL/L (98-107); CREATININE FOR GFR 1.04 MG/DL (0.70-1.30); GLOMERULAR FILTRATION RATE > 60.0 (>35); GLUCOSE, FASTING 103 MG/DL (74-106); SODIUM LEVEL 140 MMOL/L (136-145)
[2023-08-14 12:14] VITALS: BP 83/41; TEMP 97.3; O2SAT 94
[2023-08-14] MEDS: NS 1,000 ML IV ONE (12:34)
[2023-08-14] MEDS: MIDODRINE 5 MG TAB PO ONE (12:35)
[2023-08-14 13:46] VITALS: BP 128/60
[2023-08-14 15:47] VITALS: BP 143/48
[2023-08-14] MEDS: MIDODRINE 5 MG TAB PO SCH (15:47)
[2023-08-14 16:00] VITALS: TEMP 98.1; O2SAT 92
[2023-08-14 20:00] VITALS: BP 133/69; TEMP 98.1; O2SAT 95
[2023-08-15 04:00] VITALS: BP 119/41; TEMP 97.8; O2SAT 95
[2023-08-15 08:04] LABS: BASO % 0.5 % (0.0-1.0); EOS # 0.2 10^3/uL (0.0-0.5); EOS % 1.9 % (0.0-3.0); HEMOGLOBIN 7.9 g/dl (13.5-17.5); LYMPH # 2.2 10^3/uL (1.5-5.0); LYMPH % 28.4 % (24.0-44.0); MEAN CORPUSCULAR HEMOGLOBIN 25.1 pg (27.0-33.0); MEAN CORPUSCULAR HGB CONC 30.4 g/dl (32.0-36.5); MEAN CORPUSCULAR VOLUME 82.5 fl (80.0-96.0); MONO # 0.7 10^3/uL (0.0-0.8); MONO % 8.4 % (2.0-8.0); NEUTROPHILS # 4.7 10^3/uL (1.5-8.5); NEUTROPHILS % 60.3 % (36.0-66.0); PLATELET COUNT, AUTOMATED 184 10^3/uL (150-450); RED BLOOD COUNT 3.15 10^6/uL (4.30-6.10); WHITE BLOOD COUNT 7.9 10^3/uL (4.0-10.0)
[2023-08-15 08:07] VITALS: BP 128/62; TEMP 98.1; O2SAT 97
[2023-08-15 08:31] LABS: BLOOD UREA NITROGEN 22 MG/DL (9-23); CALCIUM LEVEL 8.8 MG/DL (8.3-10.6); CARBON DIOXIDE LEVEL 29 MMOL/L (20-31); CHLORIDE LEVEL 110 MMOL/L (98-107); CREATININE FOR GFR 1.07 MG/DL (0.70-1.30); GLOMERULAR FILTRATION RATE > 60.0 (>35); GLUCOSE, FASTING 91 MG/DL (74-106); POTASSIUM SERUM 4.2 MMOL/L (3.5-5.1); SODIUM LEVEL 143 MMOL/L (136-145)
[2023-08-15] MEDS ORDERED: CEFD300CAP PO (11:02)
[2023-08-15] MEDS ORDERED: DOXY100T PO (11:02)
[2023-08-15] MEDS ORDERED: MIDO5TA PO (11:02)
[2023-08-15 11:38] VITALS: BP 130/46
[2023-08-15 12:00] VITALS: BP 128/48; TEMP 97.5; O2SAT 97
== END 2023-08-15 13:08 | DRG 178 ==
LOC: EDBD 17:59 → M ED 17:59 → EEVIPCON 08-12 00:34 → M ED INP 08-12 00:34 → M MSPAV 08-12 02:10
PROVIDERS: ADMIT Preventive Medicine Undersea and Hyperbaric Medicine; ATTEND Student in an Organized Health Care Education/Training Program
DX: J15.212 Pneumonia due to Methicillin resistant Staphylococcus aureus (principal); I42.9 Cardiomyopathy, unspecified; I50.22 Chronic systolic (congestive) heart failure; F02.811 Dementia in other diseases classified elsewhere, unspecified severity, with agitation; I13.0 Hypertensive heart and chronic kidney disease with heart failure and stage 1 through stage 4 chronic kidney disease, or unspecified chronic kidney disease; E87.20 Acidosis, unspecified; G93.40 Encephalopathy, unspecified; I48.91 Unspecified atrial fibrillation; Z66 Do not resuscitate; G30.9 Alzheimer's disease, unspecified; G40.909 Epilepsy, unspecified, not intractable, without status epilepticus; E11.22 Type 2 diabetes mellitus with diabetic chronic kidney disease; E86.0 Dehydration; N18.9 Chronic kidney disease, unspecified; E87.5 Hyperkalemia; E78.00 Pure hypercholesterolemia, unspecified; K21.9 Gastro-esophageal reflux disease without esophagitis; I25.10 Atherosclerotic heart disease of native coronary artery without angina pectoris; I73.9 Peripheral vascular disease, unspecified; E11.51 Type 2 diabetes mellitus with diabetic peripheral angiopathy without gangrene; Z86.711 Personal history of pulmonary embolism; Z95.0 Presence of cardiac pacemaker; Z90.49 Acquired absence of other specified parts of digestive tract; Z90.79 Acquired absence of other genital organ(s); Z86.16 Personal history of COVID-19; Z79.82 Long term (current) use of aspirin; Z79.899 Other long term (current) drug therapy

== ENCOUNTER 2023-09-08 09:18 | Emergency (ER) | payer MEDICARE, MEDICAID ==
[~2023-09-08 09:18] MED LIST changes: +ACET-907 PO; +CEFD300CAP PO; +DIVA125C6 PO; +DOXY100T PO; +FLEEENE12 PR; +GLUC1LIQ18 PO; +GUAI100L6 PO; +MELA3TAB24 PO; +MIDO5TA PO; +MILKSUS3 PO; +NITR0.4S14 SL; +SIME80CH6 PO
[2023-09-08] MEDS: NS 500 ML IV ONE (09:56)
[2023-09-08 10:11] LABS: BASO % 0.6 % (0.0-1.0); EOS # 0.1 10^3/uL (0.0-0.5); EOS % 1.2 % (0.0-3.0); HEMATOCRIT 27.8 % (42.0-52.0); HEMOGLOBIN 8.5 g/dl (13.5-17.5); LYMPH # 1.3 10^3/uL (1.5-5.0); LYMPH % 19.1 % (24.0-44.0); MEAN CORPUSCULAR HEMOGLOBIN 25.4 pg (27.0-33.0); MEAN CORPUSCULAR HGB CONC 30.6 g/dl (32.0-36.5); MONO # 0.5 10^3/uL (0.0-0.8); MONO % 7.6 % (2.0-8.0); NEUTROPHILS # 4.9 10^3/uL (1.5-8.5); NEUTROPHILS % 71.1 % (36.0-66.0); PLATELET COUNT, AUTOMATED 214 10^3/uL (150-450); RED BLOOD COUNT 3.35 10^6/uL (4.30-6.10)
[2023-09-08 10:21] LABS: INR 1.16; PARTIAL THROMBOPLASTIN TIME 22.8 SECONDS (24.8-34.2); PROTHROMBIN TIME 14.5 SECONDS (12.5-14.5)
[2023-09-08 10:34] LABS: CK-MB VALUE MASS < 1.0 NG/ML (<3.6); LIPASE 28 U/L (12-53)
[2023-09-08 10:36] LABS: ALBUMIN 3.8 G/DL (3.2-5.2); ALKALINE PHOSPHATASE 50 U/L (46-116); ALT/SGPT 42 U/L (7.0-40); AST/SGOT 37 U/L (<34); BILIRUBIN,DIRECT 0.2 MG/DL (<0.4); BILIRUBIN,TOTAL 0.7 MG/DL (0.3-1.2); BLOOD UREA NITROGEN 28 MG/DL (9-23); CALCIUM LEVEL 9.1 MG/DL (8.3-10.6); CARBON DIOXIDE LEVEL 26 MMOL/L (20-31); CHLORIDE LEVEL 108 MMOL/L (98-107); CPK CREATINE PHOSPHOKINASE 50 U/L (46-171); CREATININE FOR GFR 1.49 MG/DL (0.70-1.30); GLOMERULAR FILTRATION RATE 47.9 (>35); GLUCOSE, FASTING 135 MG/DL (74-106); POTASSIUM SERUM 4.2 MMOL/L (3.5-5.1); SODIUM LEVEL 139 MMOL/L (136-145); TOTAL PROTEIN 6.8 G/DL (5.7-8.2)
[2023-09-08 10:38] LABS: FREE T4 1.02 NG/DL (0.89-1.76); THYROID STIMULATING HORMONE 2.796 uIU/ML (0.55-4.78)
[2023-09-08] MEDS: LIDOCAINE 2% 5ML JELLY UROJET TOP ONE (11:05)
[2023-09-08] MEDS ORDERED: ISOVUE-370 76% 100ML VIAL As Ordered ONE (11:15)
[2023-09-08 12:03] LABS: CK-MB VALUE MASS < 1.0 NG/ML (<3.6)
[2023-09-08 12:09] LABS: CPK CREATINE PHOSPHOKINASE 54 U/L (46-171); MB/CK RELATIVE INDEX 1.85 (< OR =4)
[2023-09-08 15:02] VITALS: BP 103/59; TEMP 97; O2SAT 96
== END 2023-09-08 15:04 | disposition home or self-care (01) ==
LOC: M ED 09:18
DX: R55 Syncope and collapse (principal); R91.1 Solitary pulmonary nodule; I25.2 Old myocardial infarction; I48.91 Unspecified atrial fibrillation; I25.119 Atherosclerotic heart disease of native coronary artery with unspecified angina pectoris; E11.9 Type 2 diabetes mellitus without complications; I10 Essential (primary) hypertension; E78.00 Pure hypercholesterolemia, unspecified; F10.10 Alcohol abuse, uncomplicated; Z79.1 Long term (current) use of non-steroidal anti-inflammatories (NSAID); Z79.2 Long term (current) use of antibiotics; Z79.899 Other long term (current) drug therapy
CPT/HCPCS: 36415; 70450; 71045; 71275; 80047; 80048; 80076; 81001; 82550; 82553; 83690; 84439; 84443; 84484; 85025; 85610; 85730; 93005; 93041; 94760; 99285; Q9967

== ENCOUNTER → 2023-10-01 | Outpatient (REF) | payer MEDICARE, MEDICAID ==
[2023-10-01 09:29] LABS: HEMATOCRIT 28.3 % (42.0-52.0); HEMOGLOBIN 8.6 g/dl (13.5-17.5); MEAN CORPUSCULAR HEMOGLOBIN 25.1 pg (27.0-33.0); MEAN CORPUSCULAR HGB CONC 30.4 g/dl (32.0-36.5); MEAN CORPUSCULAR VOLUME 82.7 fl (80.0-96.0); PLATELET COUNT, AUTOMATED 204 10^3/uL (150-450); RED BLOOD COUNT 3.42 10^6/uL (4.30-6.10); WHITE BLOOD COUNT 8.1 10^3/uL (4.0-10.0)
[2023-10-01 09:46] LABS: ALBUMIN 3.7 G/DL (3.2-5.2); ALKALINE PHOSPHATASE 48 U/L (46-116); ALT/SGPT 37 U/L (7.0-40); AST/SGOT 31 U/L (<34); BILIRUBIN,TOTAL 0.4 MG/DL (0.3-1.2); BLOOD UREA NITROGEN 29 MG/DL (9-23); CALCIUM LEVEL 8.9 MG/DL (8.3-10.6); CARBON DIOXIDE LEVEL 28 MMOL/L (20-31); CHLORIDE LEVEL 107 MMOL/L (98-107); CREATININE FOR GFR 1.16 MG/DL (0.70-1.30); GLOMERULAR FILTRATION RATE > 60.0 (>35); GLUCOSE, FASTING 95 MG/DL (74-106); POTASSIUM SERUM 4.8 MMOL/L (3.5-5.1); SODIUM LEVEL 139 MMOL/L (136-145); TOTAL PROTEIN 6.9 G/DL (5.7-8.2)
== END ==
LOC: SKLAB8 09-30 13:06
PROVIDERS: ATTEND Internal Medicine
DX: G40.89 Other seizures (principal)

== ENCOUNTER → 2023-10-12 | Outpatient (REF) | payer MEDICARE, MEDICAID ==
[2023-10-12 22:48] LABS: APPEARANCE, URINE CLOUDY (CLEAR); BACTERIA, URINE AUTO NEGATIVE (NEGATIVE); BILIRUBIN, URINE AUTO NEGATIVE (NEGATIVE); BLOOD, URINE BLOOD 3+ (NEGATIVE); COLOR, URINE AMBER (YELLOW); GLUCOSE, URINE (UA) AUTO NEGATIVE (NEGATIVE); KETONE, URINE AUTO NEGATIVE (NEGATIVE); LEUKOCYTE ESTERASE, URINE AUTO 2+ (NEGATIVE); MUCUS, URINE SMALL (NEGATIVE); NITRITE, URINE AUTO NEGATIVE (NEGATIVE); PROTEIN, URINE AUTO 1+ mg/dL (NEGATIVE); RBC, URINE AUTO 48 /HPF (0-3); SPECIFIC GRAVITY URINE AUTO 1.025 (1.002-1.035); SQUAMOUS EPITHELIAL CELL UR AU 0 /HPF (0-6); UROBILINOGEN, URINE AUTO 0.2 mg/dL (0.0-2.0); WBC, URINE AUTO 25 /HPF (0-3)
== END ==
LOC: SKLAB8 22:03
PROVIDERS: ATTEND Nurse Practitioner Adult Health
DX: R41.82 Altered mental status, unspecified (principal)

== ENCOUNTER → 2023-10-24 | Outpatient (REF) | payer MEDICARE, MEDICAID ==
[2023-10-24 09:59] LABS: HEMATOCRIT 25.8 % (42.0-52.0); HEMOGLOBIN 7.8 g/dl (13.5-17.5); MEAN CORPUSCULAR HEMOGLOBIN 24.5 pg (27.0-33.0); MEAN CORPUSCULAR HGB CONC 30.2 g/dl (32.0-36.5); MEAN CORPUSCULAR VOLUME 80.9 fl (80.0-96.0); PLATELET COUNT, AUTOMATED 225 10^3/uL (150-450); RED BLOOD COUNT 3.19 10^6/uL (4.30-6.10); WHITE BLOOD COUNT 9.3 10^3/uL (4.0-10.0)
[2023-10-24 10:17] LABS: VALPROIC ACID (DEPAKOTE) 8.9 UG/ML (50.0-100.0)
[2023-10-24 10:19] LABS: CALCIUM LEVEL 8.8 MG/DL (8.3-10.6); CREATININE FOR GFR 1.3 MG/DL (0.70-1.30); GLOMERULAR FILTRATION RATE 56.1 (>35); POTASSIUM SERUM 4.4 MMOL/L (3.5-5.1)
== END ==
LOC: SKLAB8 07:32
PROVIDERS: ATTEND Internal Medicine
DX: G40.89 Other seizures (principal)

== ENCOUNTER → 2023-11-02 | Outpatient (REF) | payer MEDICARE, MEDICAID ==
[2023-11-02 10:07] LABS: HEMATOCRIT 28.6 % (42.0-52.0); HEMOGLOBIN 8.5 g/dl (13.5-17.5); MEAN CORPUSCULAR HEMOGLOBIN 24.4 pg (27.0-33.0); MEAN CORPUSCULAR HGB CONC 29.7 g/dl (32.0-36.5); MEAN CORPUSCULAR VOLUME 81.9 fl (80.0-96.0); PLATELET COUNT, AUTOMATED 257 10^3/uL (150-450); RED BLOOD COUNT 3.49 10^6/uL (4.30-6.10); WHITE BLOOD COUNT 8.7 10^3/uL (4.0-10.0)
[2023-11-02 10:30] LABS: HEMOGLOBIN A1c 5.7 % (4.0-6.0)
[2023-11-02 10:38] LABS: THYROID STIMULATING HORMONE 1.579 uIU/ML (0.55-4.78)
[2023-11-02 10:39] LABS: ALBUMIN 3.8 G/DL (3.2-5.2); BILIRUBIN,TOTAL 0.6 MG/DL (0.3-1.2); CALCIUM LEVEL 9.8 MG/DL (8.3-10.6); CREATININE FOR GFR 1.4 MG/DL (0.70-1.30); GLOMERULAR FILTRATION RATE 51.5 (>35); POTASSIUM SERUM 4.9 MMOL/L (3.5-5.1); TOTAL PROTEIN 7.2 G/DL (5.7-8.2)
== END ==
LOC: SKLAB8 06:32
PROVIDERS: ATTEND Internal Medicine
DX: G40.89 Other seizures (principal); Z79.899 Other long term (current) drug therapy

== ENCOUNTER → 2024-02-12 | Outpatient (REF) | payer MEDICARE, MEDICAID ==
[2024-02-12 12:42] LABS: APPEARANCE, URINE CLEAR (CLEAR); BACTERIA, URINE AUTO 1+ (NEGATIVE); BILIRUBIN, URINE AUTO NEGATIVE (NEGATIVE); BLOOD, URINE BLOOD NEGATIVE (NEGATIVE); COLOR, URINE YELLOW (YELLOW); GLUCOSE, URINE (UA) AUTO NEGATIVE (NEGATIVE); KETONE, URINE AUTO NEGATIVE (NEGATIVE); LEUKOCYTE ESTERASE, URINE AUTO TRACE (NEGATIVE); MUCUS, URINE SMALL (NEGATIVE); NITRITE, URINE AUTO POSITIVE (NEGATIVE); PROTEIN, URINE AUTO NEGATIVE (NEGATIVE); RBC, URINE AUTO 1 /HPF (0-3); SPECIFIC GRAVITY URINE AUTO 1.017 (1.002-1.035); SQUAMOUS EPITHELIAL CELL UR AU 0 /HPF (0-6); UROBILINOGEN, URINE AUTO 0.2 mg/dL (0.0-2.0); WBC, URINE AUTO 4 /HPF (0-3)
== END ==
LOC: SKLAB8 10:28
PROVIDERS: ATTEND Internal Medicine
DX: R41.82 Altered mental status, unspecified (principal)

== ENCOUNTER → 2024-02-17 | Outpatient (REF) | payer MEDICARE, MEDICAID | LOC: SKLAB8 08:32 | PROVIDERS: ATTEND Internal Medicine | DX: S69.92XA Unspecified injury of left wrist, hand and finger(s), initial encounter (principal); I70.8 Atherosclerosis of other arteries; M19.042 Primary osteoarthritis, left hand ==

== ENCOUNTER 2024-03-13 11:06 | Observation (INO) | payer MEDICARE, MEDICAID ==
[~2024-03-13] VITALS: Ht 167.6 cm; Wt 80.9 kg
[2024-03-13] VITALS (8 sets, daily range): BP systolic 134–202; BP diastolic 59–89; TEMP 97.7–98.6; O2SAT 95–99
[~2024-03-13 11:06] MED LIST changes: -ACET1TAB55 PO; -AMLO1TAB24 PO; -ASPI81CH33 PO; -ATIV1TAB10 PO; -BISA10SU PR; -ERYT5OIN25 OU; -FERR325T3 PO; -LEVE10003 PO; -MELA3TAB30 PO; -TAMI30CA PO
[2024-03-13 11:57] LABS: BASO % 0.6 % (0.0-1.0); EOS # 0.2 10^3/uL (0.0-0.5); EOS % 3.2 % (0.0-3.0); HEMATOCRIT 21.1 % (42.0-52.0); LYMPH # 2.1 10^3/uL (1.5-5.0); LYMPH % 32.2 % (24.0-44.0); MEAN CORPUSCULAR HEMOGLOBIN 22.4 pg (27.0-33.0); MEAN CORPUSCULAR HGB CONC 29.4 g/dl (32.0-36.5); MEAN CORPUSCULAR VOLUME 76.2 fl (80.0-96.0); MONO # 0.8 10^3/uL (0.0-0.8); NEUTROPHILS # 3.4 10^3/uL (1.5-8.5); NEUTROPHILS % 51.4 % (36.0-66.0); PLATELET COUNT, AUTOMATED 221 10^3/uL (150-450); RED BLOOD COUNT 2.77 10^6/uL (4.30-6.10); WHITE BLOOD COUNT 6.6 10^3/uL (4.0-10.0)
[2024-03-13 12:00] LABS: HEMOGLOBIN 6.2 g/dl (13.5-17.5)
[2024-03-13] MEDS: DIVALPROEX SPRINKLE 125 MG CAP PO SCH (12:00)
[2024-03-13 12:06] LABS: BLOOD UREA NITROGEN 25 MG/DL (9-23); CALCIUM LEVEL 8.1 MG/DL (8.3-10.6); CARBON DIOXIDE LEVEL 28 MMOL/L (20-31); CHLORIDE LEVEL 105 MMOL/L (98-107); CREATININE FOR GFR 1.06 MG/DL (0.70-1.30); GLOMERULAR FILTRATION RATE > 60.0 (>35); GLUCOSE, FASTING 92 MG/DL (74-106); POTASSIUM SERUM 4.4 MMOL/L (3.5-5.1); SODIUM LEVEL 143 MMOL/L (136-145)
[2024-03-13 12:32] LABS: IRON (FE) 14 UG/DL (65-175); PERCENT SATURATION 3.1 % (19.7-50.0); TOTAL IRON BINDING CAPACITY 446 UG/DL (250-425)
[2024-03-13 12:34] LABS: FERRITIN 6.5 NG/ML (10.5-307.3); FOLATE 11.44 NG/ML (>5.4); VITAMIN B12 LEVEL 408 PG/ML (211-911)
[2024-03-13] MEDS ORDERED: ACET1TAB55 PO ×2 (14:35)
[2024-03-13] MEDS ORDERED: LEVE10003 PO (14:35)
[2024-03-13] MEDS ORDERED: ATIV1TAB10 PO (14:35)
[2024-03-13] MEDS ORDERED: MELA3TAB30 PO (14:35)
[2024-03-13] MEDS ORDERED: ASPI81CH33 PO (14:35)
[2024-03-13] MEDS ORDERED: TAMI30CA PO (14:35)
[2024-03-13] MEDS ORDERED: ATOR1TAB21 PO (14:35)
[2024-03-13] MEDS ORDERED: ERYT5OIN25 OU (14:35)
[2024-03-13] MEDS ORDERED: BISA10SU PR (14:35)
[2024-03-13] MEDS ORDERED: HOME MED LIST COMPLETE! XX SCH ×2 (14:35→14:50)
[2024-03-13] MEDS ORDERED: BISACODYL 10MG SUPP PR PRN (15:00)
[2024-03-13] MEDS ORDERED: ACETAMINOPHEN 325 MG TAB PO PRN (15:00)
[2024-03-13] MEDS: ACETAMINOPHEN 325 MG TAB PO SCH (16:00)
[2024-03-13] MEDS ORDERED: **hydrALAZINE HCL** 25 MG TAB PO PRN (16:50)
[2024-03-13] MEDS ORDERED: **hydrALAZINE** 10 MG TAB PO PRN (16:50)
[2024-03-13] MEDS: MIRALAX *UNIT DOSE* 17GM PACKET PO SCH (21:00)
[2024-03-13] MEDS: MEMANTINE 5MG TABLET (NAMENDA) PO SCH (21:00)
[2024-03-13] MEDS ORDERED: RAMELTEON 8 MG TAB (ROZEREM) PO PRN (21:00)
[2024-03-13] MEDS: LORazepam 0.5 MG TAB PO SCH (21:00)
[2024-03-13] MEDS: SENOKOT S TAB PO SCH (21:00)
[2024-03-13] MEDS: ATORVASTATIN 20 MG TAB PO SCH (21:00)
[2024-03-13] MEDS: levETIRAcetam 250MG TABLET (KEPPRA) PO SCH (21:00)
[2024-03-14 05:56] VITALS: BP 162/72; TEMP 97.7; O2SAT 98
[2024-03-14 06:16] LABS: HEMATOCRIT 31.8 % (42.0-52.0); HEMOGLOBIN 9.7 g/dl (13.5-17.5); MEAN CORPUSCULAR HEMOGLOBIN 23.2 pg (27.0-33.0); MEAN CORPUSCULAR HGB CONC 30.5 g/dl (32.0-36.5); MEAN CORPUSCULAR VOLUME 76.1 fl (80.0-96.0); PLATELET COUNT, AUTOMATED 257 10^3/uL (150-450); RED BLOOD COUNT 4.18 10^6/uL (4.30-6.10); WHITE BLOOD COUNT 10.9 10^3/uL (4.0-10.0)
[2024-03-14 06:41] LABS: BLOOD UREA NITROGEN 18 MG/DL (9-23); CARBON DIOXIDE LEVEL 27 MMOL/L (20-31); CHLORIDE LEVEL 105 MMOL/L (98-107); CREATININE FOR GFR 0.94 MG/DL (0.70-1.30); GLOMERULAR FILTRATION RATE > 60.0 (>35); GLUCOSE, FASTING 100 MG/DL (74-106); POTASSIUM SERUM 4.6 MMOL/L (3.5-5.1); SODIUM LEVEL 140 MMOL/L (136-145)
[2024-03-14 07:41] LABS: PROCALCITONIN 0.11 ng/ml
[2024-03-14] MEDS: FERRIC CARBOXYMALTOSE INJ 750 MG, VIAL MATE ADAPTER 1 EACH in NS 100 ML IV ONE (08:41)
[2024-03-14] MEDS: ASPIRIN 81MG CHEW TABLET PO SCH (08:42)
[2024-03-14] MEDS: amLODIPine 5 MG TAB PO SCH (08:42)
[2024-03-14] MEDS: OSELTAMIVIR PHOSPHATE 30MG CAPSULE PO SCH (08:44)
[2024-03-14] MEDS ORDERED: AMLO1TAB24 PO (09:59)
[2024-03-14] MEDS ORDERED: FERR325T3 PO (09:59)
[2024-03-14] MEDS ORDERED: PILL CUTTER 1 EACH XX PRN (10:30)
== END 2024-03-14 12:00 ==
LOC: M ED 11:06 → EDBD 11:06 → M ED INP 11:07 → EEVIPCON 11:07 → M MS5PR 15:55 → UNDODISOB 03-14 12:00
PROVIDERS: ADMIT Internal Medicine; ATTEND Internal Medicine
DX: D50.9 Iron deficiency anemia, unspecified (principal); F03.918 Unspecified dementia, unspecified severity, with other behavioral disturbance; G40.89 Other seizures; I48.91 Unspecified atrial fibrillation; I13.0 Hypertensive heart and chronic kidney disease with heart failure and stage 1 through stage 4 chronic kidney disease, or unspecified chronic kidney disease; N18.30 Chronic kidney disease, stage 3 unspecified; I25.10 Atherosclerotic heart disease of native coronary artery without angina pectoris; I73.9 Peripheral vascular disease, unspecified; I50.32 Chronic diastolic (congestive) heart failure; Z86.711 Personal history of pulmonary embolism; Z66 Do not resuscitate; H54.8 Legal blindness, as defined in USA; Z79.82 Long term (current) use of aspirin; Z79.2 Long term (current) use of antibiotics; Z79.899 Other long term (current) drug therapy; Z95.810 Presence of automatic (implantable) cardiac defibrillator; E11.22 Type 2 diabetes mellitus with diabetic chronic kidney disease; E78.5 Hyperlipidemia, unspecified
CPT/HCPCS: 36415; 36430; 80048; 82607; 82728; 82746; 83550; 84145; 85014; 85018; 85025; 85027; 86850; 86900; 86901; 86920; 87426; 93005; 96374; 99285; G0378; J1439; P9016

== ENCOUNTER → 2024-03-13 | Outpatient (REF) | payer MEDICARE, MEDICAID ==
[~2024-03-13] MED LIST changes: +ACET1TAB55 PO; +AMLO1TAB24 PO; +ASPI81CH33 PO; +ATIV1TAB10 PO; +BISA10SU PR; +ERYT5OIN25 OU; +FERR325T3 PO; +LEVE10003 PO; +MELA3TAB30 PO; +TAMI30CA PO
[2024-03-13 07:42] LABS: MEAN CORPUSCULAR HEMOGLOBIN 22.2 pg (27.0-33.0); MEAN CORPUSCULAR HGB CONC 29.1 g/dl (32.0-36.5); MEAN CORPUSCULAR VOLUME 76.3 fl (80.0-96.0); PLATELET COUNT, AUTOMATED 223 10^3/uL (150-450); WHITE BLOOD COUNT 6.3 10^3/uL (4.0-10.0)
[2024-03-13 07:45] LABS: BLOOD UREA NITROGEN 28 MG/DL (9-23); CALCIUM LEVEL 8.5 MG/DL (8.3-10.6); CARBON DIOXIDE LEVEL 26 MMOL/L (20-31); CHLORIDE LEVEL 109 MMOL/L (98-107); CREATININE FOR GFR 1.13 MG/DL (0.70-1.30); GLOMERULAR FILTRATION RATE > 60.0 (>35); GLUCOSE, FASTING 104 MG/DL (74-106); POTASSIUM SERUM 4.3 MMOL/L (3.5-5.1); SODIUM LEVEL 142 MMOL/L (136-145)
[2024-03-13 07:46] LABS: HEMATOCRIT 20.6 % (42.0-52.0)
== END ==
LOC: SKLAB8 07:00
PROVIDERS: ATTEND Internal Medicine
DX: F03.90 Unspecified dementia, unspecified severity, without behavioral disturbance, psychotic disturbance, mood disturbance, and anxiety (principal)

== ENCOUNTER → 2024-03-28 | Outpatient (REF) | payer MEDICARE, MEDICAID ==
[~2024-03-28] MED LIST changes: +ACET1TAB55 PO; +AMLO1TAB24 PO; +ASPI81CH33 PO; +ATIV1TAB10 PO; +BISA10SU PR; +ERYT5OIN25 OU; +FERR325T3 PO; +LEVE10003 PO; +MELA3TAB30 PO; +TAMI30CA PO
[2024-03-28 07:14] LABS: HEMATOCRIT 33.5 % (42.0-52.0); HEMOGLOBIN 10.2 g/dl (13.5-17.5); MEAN CORPUSCULAR HGB CONC 30.4 g/dl (32.0-36.5); MEAN CORPUSCULAR VOLUME 85.5 fl (80.0-96.0); PLATELET COUNT, AUTOMATED 210 10^3/uL (150-450); RED BLOOD COUNT 3.92 10^6/uL (4.30-6.10); WHITE BLOOD COUNT 6.8 10^3/uL (4.0-10.0)
== END ==
LOC: SKLAB8 07:00
PROVIDERS: ATTEND Internal Medicine
DX: D50.9 Iron deficiency anemia, unspecified (principal)

== ENCOUNTER → 2024-05-03 | Outpatient (REF) | payer MEDICARE, MEDICAID ==
[2024-05-03 08:11] LABS: HEMATOCRIT 37.4 % (42.0-52.0); HEMOGLOBIN 11.8 g/dl (13.5-17.5); MEAN CORPUSCULAR HEMOGLOBIN 28.6 pg (27.0-33.0); MEAN CORPUSCULAR HGB CONC 31.6 g/dl (32.0-36.5); MEAN CORPUSCULAR VOLUME 90.6 fl (80.0-96.0); PLATELET COUNT, AUTOMATED 152 10^3/uL (150-450); RED BLOOD COUNT 4.13 10^6/uL (4.30-6.10)
[2024-05-03 08:28] LABS: HEMOGLOBIN A1c 5.3 % (4.0-6.0)
[2024-05-03 08:42] LABS: ALBUMIN 3.4 G/DL (3.2-5.2); ALKALINE PHOSPHATASE 43 U/L (40-129); ALT/SGPT 39 U/L (7.0-40); AST/SGOT 26 U/L (<34); BILIRUBIN,TOTAL 0.4 MG/DL (0.3-1.2); BLOOD UREA NITROGEN 21 MG/DL (9-23); CALCIUM LEVEL 9.1 MG/DL (8.3-10.6); CARBON DIOXIDE LEVEL 29 MMOL/L (20-31); CHLORIDE LEVEL 107 MMOL/L (98-107); CREATININE FOR GFR 1.03 MG/DL (0.70-1.30); GLOMERULAR FILTRATION RATE > 60.0 (>35); GLUCOSE, FASTING 87 MG/DL (74-106); IRON (FE) 41 UG/DL (65-175); PERCENT SATURATION 11.9 % (19.7-50.0); POTASSIUM SERUM 4.4 MMOL/L (3.5-5.1); SODIUM LEVEL 145 MMOL/L (136-145); TOTAL IRON BINDING CAPACITY 345 UG/DL (250-425); TOTAL PROTEIN 6.6 G/DL (5.7-8.2)
[2024-05-03 08:44] LABS: THYROID STIMULATING HORMONE 3.535 uIU/ML (0.55-4.78)
== END ==
LOC: SKLAB8 06:43
PROVIDERS: ATTEND Internal Medicine
DX: D64.9 Anemia, unspecified (principal); F03.90 Unspecified dementia, unspecified severity, without behavioral disturbance, psychotic disturbance, mood disturbance, and anxiety; Z79.899 Other long term (current) drug therapy

== ENCOUNTER → 2024-05-07 | Outpatient (REF) | payer MEDICARE, MEDICAID ==
[2024-05-07 12:00] LABS: HEMATOCRIT 35.7 % (42.0-52.0); HEMOGLOBIN 11.5 g/dl (13.5-17.5); MEAN CORPUSCULAR HEMOGLOBIN 29.6 pg (27.0-33.0); MEAN CORPUSCULAR HGB CONC 32.2 g/dl (32.0-36.5); MEAN CORPUSCULAR VOLUME 91.8 fl (80.0-96.0); PLATELET COUNT, AUTOMATED 147 10^3/uL (150-450); RED BLOOD COUNT 3.89 10^6/uL (4.30-6.10); WHITE BLOOD COUNT 6.6 10^3/uL (4.0-10.0)
[2024-05-07 12:16] LABS: BLOOD UREA NITROGEN 23 MG/DL (9-23); CALCIUM LEVEL 9.1 MG/DL (8.3-10.6); CARBON DIOXIDE LEVEL 27 MMOL/L (20-31); CHLORIDE LEVEL 110 MMOL/L (98-107); CREATININE FOR GFR 0.94 MG/DL (0.70-1.30); GLOMERULAR FILTRATION RATE > 60.0 (>35); GLUCOSE, FASTING 106 MG/DL (74-106); SODIUM LEVEL 146 MMOL/L (136-145)
[2024-05-07 12:37] LABS: APPEARANCE, URINE CLEAR (CLEAR); BACTERIA, URINE AUTO NEGATIVE (NEGATIVE); BILIRUBIN, URINE AUTO NEGATIVE (NEGATIVE); BLOOD, URINE BLOOD NEGATIVE (NEGATIVE); COLOR, URINE YELLOW (YELLOW); GLUCOSE, URINE (UA) AUTO NEGATIVE (NEGATIVE); KETONE, URINE AUTO NEGATIVE (NEGATIVE); LEUKOCYTE ESTERASE, URINE AUTO NEGATIVE (NEGATIVE); MUCUS, URINE SMALL (NEGATIVE); NITRITE, URINE AUTO NEGATIVE (NEGATIVE); PROTEIN, URINE AUTO NEGATIVE (NEGATIVE); RBC, URINE AUTO 0 /HPF (0-3); SPECIFIC GRAVITY URINE AUTO 1.021 (1.002-1.035); SQUAMOUS EPITHELIAL CELL UR AU 0 /HPF (0-6); UROBILINOGEN, URINE AUTO 0.2 mg/dL (0.0-2.0); WBC, URINE AUTO 0 /HPF (0-3)
== END ==
LOC: SKLAB8 10:35
PROVIDERS: ATTEND Internal Medicine
DX: R41.82 Altered mental status, unspecified (principal)

== ENCOUNTER → 2024-05-10 | Outpatient (REF) | payer MEDICARE, MEDICAID | LOC: SKLAB8 07:00 | PROVIDERS: ATTEND Internal Medicine | DX: G40.909 Epilepsy, unspecified, not intractable, without status epilepticus (principal); Z79.899 Other long term (current) drug therapy ==

== ENCOUNTER → 2024-05-16 | Outpatient (REF) | payer MEDICARE, MEDICAID ==
[2024-05-16 06:52] LABS: HEMATOCRIT 37.3 % (42.0-52.0); HEMOGLOBIN 12.2 g/dl (13.5-17.5); MEAN CORPUSCULAR HGB CONC 32.7 g/dl (32.0-36.5); MEAN CORPUSCULAR VOLUME 91.9 fl (80.0-96.0); PLATELET COUNT, AUTOMATED 152 10^3/uL (150-450); RED BLOOD COUNT 4.06 10^6/uL (4.30-6.10); WHITE BLOOD COUNT 8.7 10^3/uL (4.0-10.0)
[2024-05-16 07:24] LABS: BLOOD UREA NITROGEN 27 MG/DL (9-23); CALCIUM LEVEL 9.2 MG/DL (8.3-10.6); CARBON DIOXIDE LEVEL 26 MMOL/L (20-31); CHLORIDE LEVEL 112 MMOL/L (98-107); CREATININE FOR GFR 1.03 MG/DL (0.70-1.30); GLOMERULAR FILTRATION RATE > 60.0 (>35); GLUCOSE, FASTING 128 MG/DL (74-106); POTASSIUM SERUM 4.1 MMOL/L (3.5-5.1); SODIUM LEVEL 146 MMOL/L (136-145)
== END ==
LOC: SKLAB8 07:00
PROVIDERS: ATTEND Internal Medicine
DX: K92.89 Other specified diseases of the digestive system (principal)

== ENCOUNTER → 2024-05-17 | Outpatient (REF) | payer MEDICARE, MEDICAID ==
[2024-05-17 12:15] LABS: HEMATOCRIT 38.8 % (42.0-52.0); HEMOGLOBIN 12.1 g/dl (13.5-17.5); MEAN CORPUSCULAR HEMOGLOBIN 28.9 pg (27.0-33.0); MEAN CORPUSCULAR HGB CONC 31.2 g/dl (32.0-36.5); MEAN CORPUSCULAR VOLUME 92.8 fl (80.0-96.0); PLATELET COUNT, AUTOMATED 163 10^3/uL (150-450); RED BLOOD COUNT 4.18 10^6/uL (4.30-6.10)
[2024-05-17 12:42] LABS: ALBUMIN 3.4 G/DL (3.2-5.2); ALKALINE PHOSPHATASE 49 U/L (40-129); ALT/SGPT 42 U/L (7.0-40); AST/SGOT 29 U/L (<34); BILIRUBIN,TOTAL 0.7 MG/DL (0.3-1.2); BLOOD UREA NITROGEN 18 MG/DL (9-23); CALCIUM LEVEL 8.9 MG/DL (8.3-10.6); CARBON DIOXIDE LEVEL 30 MMOL/L (20-31); CHLORIDE LEVEL 110 MMOL/L (98-107); CREATININE FOR GFR 0.96 MG/DL (0.70-1.30); GLOMERULAR FILTRATION RATE > 60.0 (>35); GLUCOSE, FASTING 99 MG/DL (74-106); POTASSIUM SERUM 3.8 MMOL/L (3.5-5.1); SODIUM LEVEL 146 MMOL/L (136-145); TOTAL PROTEIN 6.7 G/DL (5.7-8.2)
== END ==
LOC: SKLAB8 11:08
PROVIDERS: ATTEND Internal Medicine
DX: R19.8 Other specified symptoms and signs involving the digestive system and abdomen (principal)

== ENCOUNTER → 2024-09-17 | Outpatient (REF) | payer MEDICARE, MEDICAID ==
[~2024-09-17] MED LIST changes: -SUCR1ORA2 PO; +SUCR1ORA20 PO
== END ==
LOC: SKLAB8 09-16 12:04
PROVIDERS: ATTEND Internal Medicine
DX: R19.7 Diarrhea, unspecified (principal)

== ENCOUNTER → 2024-10-28 | Outpatient (REF) | payer MEDICARE, MEDICAID | LOC: SKLAB8 12:21 | PROVIDERS: ATTEND Internal Medicine | DX: R05.9 Cough, unspecified (principal); R06.02 Shortness of breath; Z95.810 Presence of automatic (implantable) cardiac defibrillator ==

== ENCOUNTER → 2024-11-04 | Outpatient (REF) | payer MEDICARE, MEDICAID ==
[2024-11-04 13:08] LABS: PLATELET COUNT, AUTOMATED 191 10^3/uL (150-450)
[2024-11-04 13:24] LABS: ALT/SGPT 17.0 U/L (7.0-40); AST/SGOT 17.0 U/L (<34); CALCIUM LEVEL 8.7 MG/DL (8.3-10.6); CARBON DIOXIDE LEVEL 28.0 MMOL/L (20-31); CHLORIDE LEVEL 105.0 MMOL/L (98-107); CREATININE FOR GFR 0.82 MG/DL (0.70-1.30); GLOMERULAR FILTRATION RATE 86.6 (>35); POTASSIUM SERUM 4.1 MMOL/L (3.5-5.1); SODIUM LEVEL 140.0 MMOL/L (136-145)
== END ==
LOC: SKLAB8 11:24
PROVIDERS: ATTEND Internal Medicine
DX: R06.02 Shortness of breath (principal)

== ENCOUNTER → 2024-11-07 | Outpatient (REF) | payer MEDICARE, MEDICAID ==
[2024-11-07 11:07] LABS: PLATELET COUNT, AUTOMATED 242 10^3/uL (150-450)
[2024-11-07 12:21] LABS: ALT/SGPT 23.0 U/L (7.0-40); AST/SGOT 18.0 U/L (<34); CALCIUM LEVEL 8.8 MG/DL (8.3-10.6); CARBON DIOXIDE LEVEL 28.0 MMOL/L (20-31); CHLORIDE LEVEL 107.0 MMOL/L (98-107); CREATININE FOR GFR 0.94 MG/DL (0.70-1.30); GLOMERULAR FILTRATION RATE 79.9 (>35); POTASSIUM SERUM 3.7 MMOL/L (3.5-5.1); SODIUM LEVEL 145.0 MMOL/L (136-145)
[2024-11-07 14:15] LABS: ESTIMATED AVERAGE GLUCOSE 146.0 MG/DL (60-110)
== END ==
LOC: SKLAB8 07:00
PROVIDERS: ATTEND Internal Medicine
DX: E11.9 Type 2 diabetes mellitus without complications (principal)

== ENCOUNTER → 2024-11-11 | Outpatient (REF) | payer MEDICARE, MEDICAID ==
[2024-11-11 11:46] LABS: APPEARANCE, URINE HAZY (CLEAR); BACTERIA, URINE AUTO NEGATIVE (NEGATIVE); BILIRUBIN, URINE AUTO NEGATIVE (NEGATIVE); BLOOD, URINE BLOOD NEGATIVE (NEGATIVE); GLUCOSE, URINE (UA) AUTO 2+ mg/dL (NEGATIVE); KETONE, URINE AUTO NEGATIVE (NEGATIVE); LEUKOCYTE ESTERASE, URINE AUTO 2+ (NEGATIVE); MUCUS, URINE SMALL (NEGATIVE); NITRITE, URINE AUTO NEGATIVE (NEGATIVE); PROTEIN, URINE AUTO 2+ mg/dL (NEGATIVE); RBC, URINE AUTO 0 /HPF (0-3); SPECIFIC GRAVITY URINE AUTO 1.030 (1.002-1.035); SQUAMOUS EPITHELIAL CELL UR AU 0 /HPF (0-6); UROBILINOGEN, URINE AUTO 0.2 mg/dL (0.0-2.0); WBC, URINE AUTO TNTC /HPF (0-3)
== END ==
LOC: SKLAB8 11:17
PROVIDERS: ATTEND Family Medicine
DX: D72.829 Elevated white blood cell count, unspecified (principal)

== ENCOUNTER → 2024-11-11 | Outpatient (REF) | payer MEDICARE, MEDICAID ==
[2024-11-11 09:34] LABS: PLATELET COUNT, AUTOMATED 203 10^3/uL (150-450)
[2024-11-11 10:08] LABS: CALCIUM LEVEL 8.6 MG/DL (8.3-10.6); CARBON DIOXIDE LEVEL 27.0 MMOL/L (20-31); CHLORIDE LEVEL 104.0 MMOL/L (98-107); CREATININE FOR GFR 1.02 MG/DL (0.70-1.30); GLOMERULAR FILTRATION RATE 72.5 (>35); POTASSIUM SERUM 4.0 MMOL/L (3.5-5.1); SODIUM LEVEL 141.0 MMOL/L (136-145)
== END ==
LOC: SKLAB8 07:25
PROVIDERS: ATTEND Family Medicine
DX: R50.9 Fever, unspecified (principal); R09.89 Other specified symptoms and signs involving the circulatory and respiratory systems

== ENCOUNTER → 2024-11-13 | Outpatient (REF) | payer MEDICARE, MEDICAID ==
[2024-11-13 10:15] LABS: PLATELET COUNT, AUTOMATED 200 10^3/uL (150-450)
== END ==
LOC: SKLAB8 07:00
PROVIDERS: ATTEND Family Medicine
DX: D72.829 Elevated white blood cell count, unspecified (principal)

== ENCOUNTER → 2024-12-11 | Outpatient (REF) | payer MEDICARE, MEDICAID ==
[2024-12-12 02:26] LABS: BASO # 0.1 10^3/uL (0.0-0.2); BASO % 0.6 % (0.0-1.0); EOS # 0.2 10^3/uL (0.0-0.5); EOS % 1.8 % (0.0-3.0); LYMPH # 1.9 10^3/uL (1.5-5.0); LYMPH % 22.4 % (24.0-44.0); MONO # 0.8 10^3/uL (0.0-0.8); MONO % 9.8 % (2.0-8.0); NEUTROPHILS # 5.5 10^3/uL (1.5-8.5); NEUTROPHILS % 65.0 % (36.0-66.0); PLATELET COUNT, AUTOMATED 141 10^3/uL (150-450)
[2024-12-12 02:30] LABS: APPEARANCE, URINE CLEAR (CLEAR); BACTERIA, URINE AUTO NEGATIVE (NEGATIVE); BILIRUBIN, URINE AUTO NEGATIVE (NEGATIVE); BLOOD, URINE BLOOD NEGATIVE (NEGATIVE); GLUCOSE, URINE (UA) AUTO NEGATIVE (NEGATIVE); KETONE, URINE AUTO NEGATIVE (NEGATIVE); LEUKOCYTE ESTERASE, URINE AUTO NEGATIVE (NEGATIVE); MUCUS, URINE SMALL (NEGATIVE); NITRITE, URINE AUTO NEGATIVE (NEGATIVE); PROTEIN, URINE AUTO NEGATIVE (NEGATIVE); RBC, URINE AUTO 1 /HPF (0-3); SPECIFIC GRAVITY URINE AUTO 1.014 (1.002-1.035); SQUAMOUS EPITHELIAL CELL UR AU 0 /HPF (0-6); UROBILINOGEN, URINE AUTO 0.2 mg/dL (0.0-2.0); WBC, URINE AUTO 0 /HPF (0-3)
[2024-12-12 02:31] LABS: CALCIUM LEVEL 9.2 MG/DL (8.3-10.6); CARBON DIOXIDE LEVEL 31.0 MMOL/L (20-31); CHLORIDE LEVEL 103.0 MMOL/L (98-107); CREATININE FOR GFR 1.01 MG/DL (0.70-1.30); GLOMERULAR FILTRATION RATE 73.3 (>35); POTASSIUM SERUM 4.8 MMOL/L (3.5-5.1); SODIUM LEVEL 141.0 MMOL/L (136-145)
== END ==
LOC: SKLAB8 20:23
PROVIDERS: ATTEND Family Medicine
DX: R41.82 Altered mental status, unspecified (principal)